=== PATIENT | male | born 1935 | race African-American/Black ===

== ENCOUNTER 2017-03-30 15:21 | Inpatient (IN) | payer MEDICARE, MEDICAID ==
[2017-03-30] MEDS ORDERED: Furosemide 40 MG/4 ML VIAL ONE (17:14)
[2017-03-30 17:25] LABS: #Basophils 0.1 thou/uL (0.0-0.2); #Eosinphils 0.2 thou/uL (0.0-0.7); #Lymphocytes 1.2 thou/uL (1.20-3.40); #Monocytes 0.5 thou/uL (0.11-0.59); #Neutrophils 5.3 thou/uL (1.40-6.50); %Basophils 0.8 % (0.0-1.0); %Eosinophils 2.5 % (0.0-10.0); %Lymphocytes 16.2 % (21.0-51.0); %Monocytes 6.5 % (0.0-10.0); Hematocrit 26.3 % (42.0-52.0); Mean Platelet Volume 6.5 fL (7.4-10.4); Red Blood Cell (RBC) Count 3.15 mill/uL (4.70-6.10); White Blood Cell (WBC) Count 7.2 thou/uL (4.8-10.8)
[2017-03-30 17:35] LABS: ALT (SGPT) 11 U/L (8-55); AST (SGOT) 20 U/L (5-34); Alkaline Phosphatase 110 U/L (40-150); Anion Gap 12 mmol/L (10-20); BUN (Urea Nitrogen) 5 mg/dL (8.4-25.7); Bilirubin, Total 0.3 mg/dL (0.2-1.2); CK (CPK) 137 U/L (30-200); Calc. Creatinine Clearance 0 mL/min (70-130); Calcium 8.8 mg/dL (7.8-10.44); Carbon Dioxide 25 mmol/L (23-31); Chloride 100 mmol/L (98-107); Estimated GFR-MDRD Greater than 90; Globulin 3.7 g/dL (2.4-3.5); Protein, Total 7.4 g/dL (5.8-8.1); Uric Acid 3.9 mg/dL (3.5-7.2)
[2017-03-30 17:39] LABS: Troponin I 0.083 ng/mL (< 0.028)
--- NOTE | 2017-03-30 17:50 | RAD ---
PORTABLE CHEST: 03/30/17 HISTORY: Dyspnea. Peripheral edema. COMPARISON: 06/14/14. Mild cardiomegaly. Mild vascular engorgement. There is patchy atelectasis and/or infiltrate in the left lung base obscuring the left hemidiaphragm. I cannot exclude small effusions. IMPRESSION: Cardiomegaly with mild vascular engorgement. Evidence of confluent infiltrate and/or atelectasis in t he left lung base. POS: DIRK
[2017-03-30] MEDS ORDERED: Ondansetron ODT 4 MG TAB SL PRN (21:38)
[2017-03-30] MEDS ORDERED: Ondansetron HCl/PF 4 MG/2 ML Vial IVP PRN ×2 (21:38→22:00)
[2017-03-30] MEDS ORDERED: Nitroglycerin 0.4 MG TAB (25 Tab Bottle) SL PRN (22:00)
[2017-03-30] MEDS ORDERED: Famotidine/PF 20 mg/2ml Vial SLOW IVP SCH ×2 (22:00→22:15)
[2017-03-30] MEDS ORDERED: Loratadine 10 MG TAB PO PRN (22:00)
[2017-03-30] MEDS ORDERED: Acetaminophen 325 MG TAB PO PRN (22:00)
[2017-03-30] MEDS ORDERED: Mag-Al 1200 mg/1200 mg/30 ML UDCUP PO PRN (22:00)
[2017-03-30] MEDS ORDERED: traMADol HCl 50 MG TAB PO PRN (22:00)
[2017-03-30] MEDS ORDERED: Calcium Carbonate 500 MG ChewTAB PO PRN (22:00)
[2017-03-30] MEDS ORDERED: Senokot 8.6 MG TAB PO PRN ×2 (22:00)
[2017-03-30] MEDS ORDERED: cloNIDine 0.1 MG TAB PO PRN (22:00)
[2017-03-30] MEDS ORDERED: Bisacodyl 5 MG TAB PO PRN ×2 (22:00)
[2017-03-30] MEDS ORDERED: hydrALAZINE 20 MG/ML VIAL SLOW IVP PRN (22:00)
[2017-03-30] MEDS ORDERED: Diabetic Tussin 200 MG/10 ML UDCUP PO PRN (22:00)
[2017-03-30] MEDS ORDERED: Benzonatate 100 MG CAP PO PRN (22:00)
--- NOTE | 2017-03-30 22:00 | ULT ---
LEFT LOWER EXTREMITY VENOUS DUPLEX STUDY. 03/30/17 Ultrasound doppler study is performed on the deep veins of the left lower extremity. Color doppler wi th spectral analysis and compression study is performed on the common femoral, profunda femoral, supe rficial femoral, popliteal, posterior tibial and greater saphenous veins. HISTORY: Left lower extremity pain and edema. FINDINGS: Deep veins of left lower extremity show normal compression and blood flow. No evidence of DVT. Prominent lymph nodes are seen in the inguinal region. IMPRESSION: No evidence of left lower extremity DVT. POS: KOMAL
[2017-03-30] MEDS ORDERED: Dextrose 50% Abboject 50 ML SYRINGE SLOW IVP PRN (22:41)
[2017-03-30] MEDS ORDERED: Dextrose 5% in Water 1,000 ML IV PRN (22:41)
[2017-03-30] MEDS ORDERED: HumaLOG 300 UNITS/3 ML VIAL SC PRN (22:41)
[2017-03-30] MEDS: Furosemide 40 MG/4 ML VIAL SLOW IVP SCH (23:22)
[2017-03-30 23:34] LABS: Iron 16 ug/dL (65-175)
[2017-03-30 23:38] LABS: Troponin I 0.086 ng/mL (< 0.028)
[2017-03-31 05:09] LABS: #Eosinphils 0.1 thou/uL (0.0-0.7); #Monocytes 0.6 thou/uL (0.11-0.59); #Neutrophils 4.3 thou/uL (1.40-6.50); %Basophils 0.7 % (0.0-1.0); %Lymphocytes 15.6 % (21.0-51.0); %Monocytes 10.3 % (0.0-10.0); Hematocrit 26.2 % (42.0-52.0); Mean Platelet Volume 6.4 fL (7.4-10.4); Red Blood Cell (RBC) Count 3.17 mill/uL (4.70-6.10); White Blood Cell (WBC) Count 6.1 thou/uL (4.8-10.8)
[2017-03-31 05:32] LABS: Anion Gap 13 mmol/L (10-20); BUN (Urea Nitrogen) 6 mg/dL (8.4-25.7); Calc. Creatinine Clearance 129 mL/min (70-130); Calcium 8.7 mg/dL (7.8-10.44); Carbon Dioxide 29 mmol/L (23-31); Chloride 99 mmol/L (98-107); Cholesterol 173 mg/dl (< 200 Desired); Estimated GFR-MDRD Greater than 90; LDL Cholesterol, Calculated 99 mg/dL
--- NOTE | 2017-03-31 05:33 | HP ---
DATE OF ADMISSION: 03/30/2017 PRIMARY CARE PHYSICIAN: None. CHIEF COMPLAINT: Left lower extremity swelling and shortness of breath on lying down. HISTORY OF PRESENT ILLNESS: Mr. Bowman is an 81-year-old -Italian male with past medical histo ry of atrial fibrillation, CVA with left-sided hemiparesis, diabetes, hypertension, and dyslipidemia, who was sent from the shelter where he resides with the above-mentioned complaint. History is mainly obtained by the patient himself and electronic medical records have been reviewed. Case has b een discussed with the admitting ER physician, Dr. Dykes. According to Mr. Bowman: He resides in [facility]. The patient reports that for the la st 5 or 6 days, shelter staff and himself have noticed that his left lower leg is swollen. He d enies any pain per se, but it hurts if you touch it. He has also noticed shortness of breath which m ainly happens when he tries to lie flat. He has been unable to sleep for the last 5 or 6 days and cole s been sitting up in a recliner because every time he tries to lay flat, he gets short of breath and starts to choke. Because of these ongoing symptoms, he was sent to the emergency room. He has mild cough and rhinorrhea, but no other recent illnesses. He denies any fever, chills, chest pain or disc omfort. Upon presentation to the emergency room, his oxygen saturation was 92% on room air. He was afebrile and otherwise hemodynamically stable. His examination confirmed the findings of left lower extremity swelling with pitting edema and decreased breath sounds in the lungs. He underwent a 12-lead EKG wh ich showed atrial fibrillation with controlled ventricular response and a chest x-ray which showed fi ndings suggestive of either atelectasis versus left lower lobe infiltrate. He underwent a lower extr emity Doppler ultrasound of the left leg which is negative for any DVT. His initial workup suggested possible fluid overload/congestive heart failure with elevated BNP at 159. He had indeterminate ran ge troponin as well with initial troponin of 0.083. He received 40 mg of IV Lasix in the emergency r oom and is now being admitted for fluid overload and congestive heart failure. PAST MEDICAL HISTORY: 1. Chronic atrial fibrillation. 2. Diabetes mellitus. 3. Dyslipidemia. 4. Hypertension. 5. 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 6. Gastroesophageal reflux disease. PAST SURGICAL HISTORY: Cholecystectomy, laminectomy. FAMILY HISTORY: Significant for diabetes, hypertension, and heart disease. SOCIAL HISTORY: He lives at [facility] since his stroke. He has no history of drug, tobacco or alcohol abuse. He is mostly in a wheelchair. ALLERGIES: No known medication allergies. CURRENT MEDICATIONS: As listed in the emergency room record include omeprazole 40 mg daily, lisinopr il 20 mg daily, Norvasc 10 mg daily, Actos 15 mg daily, Cordarone 100 mg daily, Lasix 40 mg daily, Al dactone 25 mg daily, aspirin 81 mg daily, ferrous gluconate 325 mg daily, metformin 1000 mg b.i.d., v itamin C 500 mg b.i.d., Tegretol 200 mg 3 times a day, Xarelto 20 mg daily, and Cardizem 120 mg daily . REVIEW OF SYSTEMS: The following complete review of systems was negative, unless otherwise mentioned in the HPI or below: Constitutional: Weight loss or gain, ability to conduct usual activities. Skin: Rash, itching. Ey es: Double vision, pain. ENT/Mouth: Nose bleeding, neck stiffness, pain, tenderness. Cardiovascul ar: Palpitations, orthopnea. Respiratory: Shortness of breath, wheezing, cough, hemoptysis, fever or night sweats. Gastrointestinal: Poor appetite, abdominal pain, heartburn, nausea, vomiting, cons tipation, or diarrhea. Genitourinary: Urgency, frequency, dysuria, nocturia. Musculoskeletal: Eliceo n, swelling. Neurologic/Psychiatric: Anxiety, depression. Allergy/Immunologic: Skin rash, bleedin g tendency. The patient endorses orthopnea, PND, dyspnea on exertion and lower extremity edema. LABORATORY DATA: His CBC shows WBCs at 7.2, 74% neutrophils. Hemoglobin is 7.6 and platelet count o f 482. Serum chemistries show sodium of 133, otherwise unremarkable. His BNP is 159. His creatinin e kinase is normal. His CK-MB is normal at 5.6 with troponin elevated to 0.083. Twelve-lead EKG by my review shows atrial fibrillation with controlled ventricular response without any acute ST or T-wa ve changes. Chest x-ray by my review shows mild vascular congestion and possibility of left lung bas e infiltrate. Doppler extremity of the lower leg on the left side does not show any DVT. PHYSICAL EXAMINATION: VITAL SIGNS: Upon presentation include blood pressure 150/76, pulse of 72, saturating 92% on room ai r, respirations 14, temperature 97.7. GENERAL: No acute distress, lying comfortably in bed now, no respiratory distress noticed. HEENT: Mucous membrane is moist and pink, no oropharyngeal exudate or erythema. Head is normocephal ic, atraumatic. Pupils equal, reactive to light and accommodation. Extraocular movements intact. NECK: Supple without any lymphadenopathy, JVD or bruit. CHEST: Clear to auscultation, but appears decreased at bases, few bibasilar crackles heard. No whee zing. HEART: Rate and rhythm is regular without any murmur, rubs or gallops. ABDOMEN: Obese, soft, nontender, nondistended with positive bowel sounds. EXTREMITIES: Showed left lower extremity pitting edema extending all the way from his foot up to his mid dawkins. He does not have any warmth or tenderness on palpation of the left leg. No erythema noti lana. NEUROLOGIC: Dense left-sided hemiparesis involving the left arm and left leg noticed. Otherwise, ne urological examination is unremarkable. SKIN: Free of any rashes. Appears dry. PSYCHIATRIC: Normal affect. IMPRESSION AND PLAN: 1. Acute respiratory distress. This is secondary to acute congestive heart failure exacerbation. T he patient's last echocardiogram was in 2012 in December. It did show preserved ejection fraction of 5 9%. At this time, we will go ahead and repeat the echocardiogram and continue gentle diuresis with L asix. Strict I's and O's and free water restriction will also be instituted. We will also request c onsultation with Cardiology. The patient reports that he has been seen by Dr. Moncada in the past, but he has not seen any leasing representative since he has been in the shelter. The patient possibly ca n also have aspiration pneumonia given his history of dense CVA. He denies any dysphagia or swallowi ng problems, but we will go ahead and consult speech therapist as well for formal evaluation. He toyin l be started on antibiotic for possible left lower lobe infiltrate. 2. Acute congestive heart failure exacerbation, likely diastolic. We will repeat the echo and flower nue diuresis as above. Monitor renal function and strict I's and O's. 3. Indeterminate troponin. This is likely secondary to demand ischemia from acute congestive heart failure. We will continue to trend serial cardiac enzymes and continue his home medications includin g aspirin. 4. Chronic atrial fibrillation. The patient is currently rate controlled. We will continue his Xar elto as well as his antiarrhythmics and neural blocking agents once his home medications are confirme d. 5. History of hypertension. He is currently controlled. We will continue with his lisinopril, Norv asc once the dosages are confirmed. Restart Cardizem once the dose is confirmed as well. 6. History of diabetes mellitus type 2. At this time, we will start him on insulin sliding scale fo r better control. Restart his home medications if his oral intake is adequate. Frequent Accu-Cheks will also be ordered. 7. History of gastroesophageal reflux. We will start him on b.i.d. Pepcid for now and continue his home medication of omeprazole. 8. Code status: FULL CODE, discussed with the patient. 9. History of CVA. We will obtain OT and PT consultation. He will be a good candidate for rehabili tation back at shelter. 10. Morbid obesity. 11. History of recurrent urinary tract infection. We will check urinalysis and culture if necessary . DISPOSITION: Mr. Bowman is currently being admitted for acute respiratory distress, likely secondary t o acute congestive heart failure exacerbation. Estimated length of stay is at least 2-3 midnight. F urther management will depend upon his clinical course.
[2017-03-31] MEDS: Furosemide 40 MG/4 ML VIAL SLOW IVP SCH (05:36)
[2017-03-31] MEDS: Rivaroxaban 10 MG TAB PO SCH (05:37)
[2017-03-31] MEDS: Amlodipine 10 MG TAB PO SCH (09:18)
[2017-03-31] MEDS: Spironolactone 25 MG TAB PO SCH (09:19)
[2017-03-31] MEDS: Aspirin 81 mg Enteric Coated Tablet PO SCH (09:19)
[2017-03-31] MEDS: Amiodarone 200 MG TAB PO SCH (09:19)
[2017-03-31] MEDS: Famotidine/PF 20 mg/2ml Vial SLOW IVP SCH ×2 (09:20→20:41)
[2017-03-31] MEDS: carBAMazepine 200 MG TAB PO SCH ×3 (09:26→18:05)
--- NOTE | 2017-03-31 10:29 | PDOC.PN ---
- Subjective Encounter Start Date: 03/31/17 Encounter Start Time: 10:27 Mr. Bowman was seen today in follow-up of CHF exacerbation. He says he is breathing better today. He had been sleeping for the past 4 nights in his wheelchair due to trouble breathing, He denies having any chest pain. - Objective MAR Reviewed: Yes Vital Signs & Weight: Vital Signs (12 hours) Temp Pulse Resp BP Pulse Ox 03/31/17 09:19 81 03/31/17 09:18 81 03/31/17 08:20 99.1 F 81 18 134/68 94 L 03/31/17 04:00 98.2 F 90 16 123/58 L 95 Weight Weight 250 lb I&O: 03/30/17 03/31/17 04/01/17 06:59 06:59 06:59 Intake Total 60 Balance 60 Result Diagrams: 03/31/17 04:39 03/31/17 04:39 Additional Labs: Accuchecks 03/31/17 06:18 POC Glucose 134 H Phys Exam - Physical Examination HEENT: PERRLA Respiratory: no wheezing, no rales, no rhonchi, clear to auscultation bilateral Cardiovascular: RRR, no significant murmur Gastrointestinal: soft, non-tender, positive bowel sounds Musculoskeletal: edema present Trace edema both legs, and chronic venous stasis changes Dx/Plan (1) Acute exacerbation of CHF (congestive heart failure) Code(s): I50.9 - HEART FAILURE, UNSPECIFIED Status: Acute (2) Hypertension Code(s): I10 - ESSENTIAL (PRIMARY) HYPERTENSION Status: Acute (3) Afib Code(s): I48.91 - UNSPECIFIED ATRIAL FIBRILLATION Status: Acute (4) Diabetes mellitus type 2 Code(s): E11.9 - TYPE 2 DIABETES MELLITUS WITHOUT COMPLICATIONS Status: Active - Plan * Dyspnea- patient was admitted with symptoms consistent with CHF exacerbation- he has improved symptomatically with Diureses * Echo is pending * HTN- blood pressure is stable * Will need to repeat BMP to monitor renal function and electrolytes * DM- blood glucose is stable * Await Cardiology input.
--- NOTE | 2017-03-31 16:05 | CON ---
DATE OF CONSULTATION: 03/31/2017 REASON FOR CONSULTATION: Lower extremity edema and shortness of breath. HISTORY OF PRESENT ILLNESS: Mr. Bowman is a pleasant 81-year-old gentleman who recently presented with an increased shortness of breath and lower extremity edema. During my visit, his symptoms have impr niki. He did complain of some shortness of breath. No chest pain or pressure noted. He was found t o be in atrial fibrillation, which has been documented in the past to be chronic. He has been on Xar elto 20 mg daily for his atrial fibrillation. According to Mr. Bowman, he has not been seen or evaluat ed by Cardiology in the past. PAST MEDICAL HISTORY: Chronic atrial fibrillation, hyperlipidemia, hypertension, diabetes mellitus, CVA and acid reflux. PAST SURGICAL HISTORY: Cholecystectomy and laminectomy. SOCIAL HISTORY: No current tobacco or alcohol use. ALLERGIES: None. MEDICATIONS: Include Norvasc, Actos, Cordarone, Lasix, metformin, vitamin C, Tegretol, Xarelto and C ardizem. REVIEW OF SYSTEMS: Ten-point review of systems reviewed and as above, otherwise negative. PHYSICAL EXAMINATION: GENERAL: Patient is a pleasant male who is in no acute distress. The patient appears his stated age . VITAL SIGNS: Blood pressure 145/67, pulse 81 and temperature afebrile. NEUROLOGIC: The patient is alert and oriented x3 with no focal neurologic deficits. HEENT: Sclerae without icterus. Mouth has moist mucous membranes with normal pallor. NECK: No JVD. Carotid upstroke brisk. No bruits bilaterally. LUNGS: Clear to auscultation with unlabored respirations. BACK: No scoliosis or kyphosis. CARDIAC: Irregularly irregular. No significant rubs, murmurs, thrills, or gallops noted throughout the precordium. PMI is not displa lana. There is no parasternal heave. ABDOMEN: Soft, nontender, nondistended. No peritoneal signs present. No hepatosplenomegaly. No abnormal striae. EXTREMITIES: 2+ femoral and 2+ dorsalis pedis pulses. No cyanosis, clubbing, or edema. SKIN: No gross abnormalities. PERTINENT LABS: Hemoglobin 7.5. Creatinine 0.73. IMPRESSION: 1. Shortness of breath. 2. Lower extremity edema. 3. Atrial fibrillation. RECOMMENDATIONS: Mr. Bowman' symptoms may be multifactorial. He does have a history of atrial fibrill ation. He has been on amiodarone therapy and Xarelto, although he states he has not been seen or juvencio luated by Cardiology in the past. Given that he continues to be in atrial fibrillation, would stop a miodarone therapy. His symptoms may also be exacerbated by anemia with a hemoglobin of 7.5. Recomme ndations will be per the primary team. Otherwise, he states he has had significant diuresis and sign ificant improvement in symptoms.
[2017-04-01] MEDS: Rivaroxaban 10 MG TAB PO SCH (05:17)
[2017-04-01 05:30] LABS: Hematocrit 26.1 % (42.0-52.0)
[2017-04-01 05:50] LABS: Anion Gap 11 mmol/L (10-20); BUN (Urea Nitrogen) 6 mg/dL (8.4-25.7); Calc. Creatinine Clearance 128 mL/min (70-130); Calcium 8.9 mg/dL (7.8-10.44); Carbon Dioxide 32 mmol/L (23-31); Chloride 99 mmol/L (98-107); Estimated GFR-MDRD Greater than 90
[2017-04-01 06:26] VITALS: BMI 37.3
[2017-04-01] MEDS: Famotidine/PF 20 mg/2ml Vial SLOW IVP SCH ×2 (08:40→22:03)
[2017-04-01] MEDS: Spironolactone 25 MG TAB PO SCH (08:40)
[2017-04-01] MEDS: Aspirin 81 mg Enteric Coated Tablet PO SCH (08:40)
[2017-04-01] MEDS: Amiodarone 200 MG TAB PO SCH (08:40)
[2017-04-01] MEDS: Amlodipine 10 MG TAB PO SCH (08:41)
[2017-04-01] MEDS: carBAMazepine 200 MG TAB PO SCH ×3 (08:41→17:13)
--- NOTE | 2017-04-01 09:47 | PDOC.PN ---
- Subjective Encounter Start Date: 04/01/17 Encounter Start Time: 09:45 Mr. Bowman was seen today in follow-up for new onset CHF. He says he is feeling much better today. He does not have any complaints. He denies feeling short of breath, and says the pain in his left leg is much better. - Objective MAR Reviewed: Yes Vital Signs & Weight: Vital Signs (12 hours) Temp Pulse Resp BP BP Pulse Ox 04/01/17 08:41 76 04/01/17 08:40 76 124/60 04/01/17 08:35 98 F 76 18 94 L 04/01/17 08:34 98.0 F 76 18 124/60 94 L 04/01/17 04:00 98.7 F 76 20 131/60 92 L Weight Weight 238 lb I&O: 03/31/17 04/01/17 04/02/17 06:59 06:59 06:59 Intake Total 60 120 Balance 60 120 Result Diagrams: 04/01/17 04:45 04/01/17 04:45 Additional Labs: Accuchecks 04/01/17 03/31/17 03/31/17 06:03 20:07 17:02 POC Glucose 149 H 193 H 166 H 03/31/17 12:33 POC Glucose 163 H Phys Exam - Physical Examination HEENT: PERRLA Respiratory: no wheezing, no rales, no rhonchi, clear to auscultation bilateral Cardiovascular: RRR, no significant murmur Gastrointestinal: soft, non-tender, positive bowel sounds Musculoskeletal: edema present trace pedal edema Dx/Plan (1) Acute exacerbation of CHF (congestive heart failure) Code(s): I50.9 - HEART FAILURE, UNSPECIFIED Status: Acute (2) Hypertension Code(s): I10 - ESSENTIAL (PRIMARY) HYPERTENSION Status: Acute (3) Afib Code(s): I48.91 - UNSPECIFIED ATRIAL FIBRILLATION Status: Acute (4) Diabetes mellitus type 2 Code(s): E11.9 - TYPE 2 DIABETES MELLITUS WITHOUT COMPLICATIONS Status: Active - Plan * New Onset CHF- this is likely due to Diastolic Dysfunction ( however this could not be assessed alan to AFIB during the Echo) * Continue Lasix * Anemia- this appears to be chronic in review of his records, but his level has been slowly trending down. Will check a ferritin level, and stool for Occult blood. I suspect he has a combination of iron deficiency as well as anemia in chronic disease. He does not seem symptomatic from this, and therefore can be discharged on iron. He will need referral to GI for consideration of outpatient Colonoscopy. * AFIB- chronic- Amiodarone was discontinued by Dr. Moncada * DM- blood glucose is stable * He likely can be transitioned back to the [place] soon. .
[2017-04-01] MEDS: HumaLOG 300 UNITS/3 ML VIAL SC PRN (12:56)
--- NOTE | 2017-04-01 13:54 | PRG ---
DATE OF SERVICE: 04/01/2017 SUBJECTIVE: Mr. Bowman is doing well. He has had increased shortness of breath and decreased lower ex tremity edema. OBJECTIVE: VITAL SIGNS: Blood pressure 124/60, pulse 76, I's and O's positive 60, but has lost 12 pounds in the last 24 hours. PHYSICAL EXAMINATION: GENERAL: Patient is a pleasant male who is in no acute distress. The patient appears his stated age . NEUROLOGIC: The patient is alert and oriented times 3 with no focal neurologic deficits. HEENT: Sclerae without icterus. Mouth has moist mucous membranes with normal pallor. NECK: No JVD. Carotid upstroke brisk. No bruits bilaterally. LUNGS: Clear to auscultation with unlabored respirations. BACK: No scoliosis or kyphosis. CARDIAC: Regular rate and rhythm with normal S1 and S2. No S3 or S4 noted. No significant rubs, mu rmurs, thrills, or gallops noted throughout the precordium. PMI is not displaced. There is no serg ternal heave. ABDOMEN: Soft, nontender, nondistended. No peritoneal signs present. No hepatosplenomegaly. No ab normal striae. EXTREMITIES: 1+ pitting edema. SKIN: No gross abnormalities. IMPRESSION: 1. Shortness of breath. 2. Lower extremity edema. 3. Atrial fibrillation, rate controlled. 4. Anemia. RECOMMENDATIONS: At this point, we will stop amiodarone therapy. He is currently in atrial fibrilla tion and no need to proceed. He is currently rate controlled. We will continue to aspirin. He is o n calcium channel blockade at 120 mg per day. We will continue. Continue Xarelto.
[2017-04-02] MEDS: Rivaroxaban 10 MG TAB PO SCH (06:17)
[2017-04-02] MEDS: Amlodipine 10 MG TAB PO SCH (08:08)
[2017-04-02] MEDS: Aspirin 81 mg Enteric Coated Tablet PO SCH (08:08)
[2017-04-02] MEDS: Spironolactone 25 MG TAB PO SCH (08:08)
[2017-04-02] MEDS: carBAMazepine 200 MG TAB PO SCH ×2 (08:08→11:48)
[2017-04-02] MEDS: Famotidine/PF 20 mg/2ml Vial SLOW IVP SCH (08:08)
[2017-04-02 10:51] LABS: Magnesium 1.6 mg/dL (1.6-2.6)
[2017-04-02 12:14] VITALS: TEMP 97.7
[2017-04-02 12:28] VITALS: BP 144/65
[2017-04-02] MEDS: HumaLOG 300 UNITS/3 ML VIAL SC PRN (12:31)
--- NOTE | 2017-04-02 12:38 | DIS ---
PRIMARY CARE PHYSICIAN: Dr. Angel Suarez DATE OF ADMISSION: 03/30/2017 DATE OF DISCHARGE: 04/02/2017 DISCHARGE DISPOSITION: Back to [facility]. DISCHARGE DIAGNOSES: 1. Acute congestive heart failure exacerbation, likely diastolic heart failure or congestive heart f ailure with preserved ejection fraction. 2. Chronic atrial fibrillation. 3. Diabetes mellitus. 4. Iron deficiency anemia. 5. Dyslipidemia. 6. Hypertension. 7. History of right-sided cerebrovascular accident. DISCHARGE MEDICATIONS: Please note that Mr. Bowman was taken off of amiodarone by Dr. Moncada here [facility]. He is to continue Xarelto 20 mg daily, spironolactone 25 mg daily, Actos 15 mg daily , Protonix 40 mg daily, metformin 1000 mg twice a day, loratadine 10 mg as needed, lisinopril 10 mg a t bedtime, Levaquin 500 mg until course is completed, Mucinex 600 mg twice a day, Lasix 40 mg daily, iron sulfate 325 mg twice a day, Cardizem-CD 120 mg daily, Diabetic Tussin DM as needed, Tegretol 200 mg t.i.d., Dulcolax 5 mg as needed, aspirin 81 mg daily, amlodipine 10 mg daily, extra strength aspi rin 500 mg q.4 as needed. PROCEDURES DONE DURING ADMISSION: The patient had a lower extremity venous Doppler of the left lower extremity which was negative for DVT. The patient also had an echocardiogram and the LVEF was estim ated at 55-60%. Diastolic function could not be assessed secondary to the patient was in atrial fibr illation. CODE STATUS: Full code. ALLERGIES: No known drug allergies. HOSPITAL COURSE: Mr. Bowman is a pleasant 81-year-old gentleman who was admitted after experiencing in creasing lower extremity edema and shortness of breath in the long-term. He was subsequently warren sferred to our facility for evaluation. He underwent echocardiogram to assess his ejection fraction and he does have a preserved EF. It is suspected that the heart failure could be due to diastolic dy sfunction. He was evaluated by Cardiology. He has a history of chronic atrial fibrillation which th e patient continues to be in atrial fibrillation despite being on amiodarone. For this reason, the a miodarone was discontinued by Cardiology as it has been ineffective. The patient improved dramatical ly overnight and as such, no significant changes will be made to his medications other than the disco ntinuation of the amiodarone and to watch his oral intake of fluids as well as sodium. He was also f ound to be anemic with a hemoglobin ranging from 7.9 to 7.5. He had a low iron level as well as a lo w ferritin level. However, his stool guaiac was negative. It appears he has an iron deficiency anem ia. This is in fact stable over the course of the last few years. His hemoglobin; however, has tren ded down. He will need an outpatient GI evaluation to rule out occult malignancy if this has not yet already been done and the orders of which were given to the long-term. The patient therefore is stable for discharge and follow up with his primary care physician in a few weeks.
[2017-04-02] MEDS ORDERED: Ferrous Sulfate 325 MG TAB PO SCH (17:00)
--- NOTE | 2017-05-01 16:47 | EKG ---
Test Reason : Blood Pressure : / mmHG Vent. Rate : 070 BPM Atrial Rate : 288 BPM P-R Int : 000 ms QRS Dur : 072 ms QT Int : 418 ms P-R-T Axes : 000 018 005 degrees QTc Int : 451 ms Atrial fibrillation Nonspecific ST and T wave abnormality Abnormal ECG Confirmed by ELLA JONES, GARIMA ([id number]), digital editor AMINA NEVAREZ ([id number]) on 05/01/2017 4:46:54 PM Referred By: Confirmed By:GARIMA JARAMILLO MD
== END 2017-04-02 14:32 | DRG 292 ==
LOC: ERS 15:21 → 2NO 19:30
PROVIDERS: ADMIT Internal Medicine; ATTEND Internal Medicine
DX: I11.0 Hypertensive heart disease with heart failure (principal); I69.354 Hemiplegia and hemiparesis following cerebral infarction affecting left non-dominant side; I24.8 Other forms of acute ischemic heart disease; R06.03 Acute respiratory distress; E66.01 Morbid (severe) obesity due to excess calories; E11.9 Type 2 diabetes mellitus without complications; D50.9 Iron deficiency anemia, unspecified; I50.33 Acute on chronic diastolic (congestive) heart failure; I48.2 Chronic atrial fibrillation; E78.5 Hyperlipidemia, unspecified; Z79.02 Long term (current) use of antithrombotics/antiplatelets; K21.9 Gastro-esophageal reflux disease without esophagitis; Z68.39 Body mass index [BMI] 39.0-39.9, adult; I87.8 Other specified disorders of veins
CPT/HCPCS: 36415; 36416; 71010; 80048; 80053; 80061; 82274; 82550; 82553; 82728; 83540; 83550; 83735; 83880; 84132; 84484; 84550; 85014; 85018; 85025; 85049; 93005; 93306; 96374; G8978-GP-CM; G8979-GP-CK; G8987-GO-CM; G8988-GO-CK; G8996-GN-CI; G8997-GN-CI; J1940; S0028

== ENCOUNTER 2017-04-26 19:20 | Inpatient (IN) | payer MEDICARE, MEDICAID ==
[2017-04-26] MEDS ORDERED: Acetaminophen 500 MG TAB ONE (20:59)
[2017-04-26 21:30] LABS: #Lymphocytes 0.5 thou/uL (1.20-3.40); #Monocytes 0.6 thou/uL (0.11-0.59); #Neutrophils 5.5 thou/uL (1.40-6.50); %Basophils 0.3 % (0.0-1.0); %Eosinophils 0.5 % (0.0-10.0); %Lymphocytes 7.3 % (21.0-51.0); %Monocytes 8.5 % (0.0-10.0); Hematocrit 21.3 % (42.0-52.0); Mean Platelet Volume 7.1 fL (7.4-10.4); Red Blood Cell (RBC) Count 2.73 mill/uL (4.70-6.10); White Blood Cell (WBC) Count 6.6 thou/uL (4.8-10.8)
--- NOTE | 2017-04-26 21:30 | ULT ---
LEFT LOWER EXTREMITY VENOUS DOPPLER: Date: 04-26-17 Provided Clinical History: Left lower extremity pain. FINDINGS: Grayscale and color doppler sonography with spectral analysis was performed of the left common femora l, femoral, popliteal, posterior tibial, greater saphenous and profunda femoral veins demonstrating a normal sonographic appearance to each. IMPRESSION: No sonographic evidence for left lower extremity deep venous thrombosis. POS: DIRK
[2017-04-26 21:45] LABS: ALT (SGPT) 11 U/L (8-55); AST (SGOT) 24 U/L (5-34); Alkaline Phosphatase 82 U/L (40-150); Anion Gap 15 mmol/L (10-20); BUN (Urea Nitrogen) 14 mg/dL (8.4-25.7); Bilirubin, Total 0.3 mg/dL (0.2-1.2); Calc. Creatinine Clearance 0 mL/min (70-130); Calcium 8.4 mg/dL (7.8-10.44); Carbon Dioxide 27 mmol/L (23-31); Chloride 100 mmol/L (98-107); Estimated GFR-MDRD Greater than 90; Globulin 3.6 g/dL (2.4-3.5)
[2017-04-26 22:03] LABS: Bilirubin Negative (Negative); Blood, Urine Trace (Negative); Glucose, Urine (Dipstick) Negative (Negative); Ketone, Urine Negative (Negative); Nitrite Negative (Negative); Protein, Urine (Dipstick) Negative (Neg-Trace); Urobilinogen 0.2 mg/dL (0.2-1.0)
[2017-04-26 22:06] LABS: Bacteria/HPF None Seen HPF (None Seen); Hyaline Casts/LPF 0-3 HYALINE CAST LPF (0-3 Hyaline); Squamous Epithelial 0-3 HPF (0-3); WBC/HPF 0-3 HPF (0-3)
[2017-04-26 22:51] LABS: Prothrombin Time 17.8 SEC (12.0-14.7)
[2017-04-26 22:52] LABS: PTT 41.7 SEC (22.9-36.1)
[2017-04-27 01:09] LABS: Troponin I 0.095 ng/mL (< 0.028)
[2017-04-27 03:54] LABS: Troponin I 0.094 ng/mL (< 0.028)
[2017-04-27 06:37] LABS: Troponin I 0.108 ng/mL (< 0.028)
[2017-04-27 07:53] LABS: Hematocrit 25.9 % (42.0-52.0)
[2017-04-27 09:44] LABS: Hematocrit 24.7 % (42.0-52.0)
--- NOTE | 2017-04-27 20:14 | HP ---
DATE OF ADMISSION: 04/26/2017, the patient was placed in observation at midnight, the time of my visit was 0700. CHIEF COMPLAINT: Left calf pain. HISTORY OF PRESENT ILLNESS: Mr. Bowman is an 81-year-old gentleman, resident of [facility] where he has been since he suffered a stroke leaving him with left-sided hemiplegia. He lives there a retirement, does have contractures left over from stroke, has chronic left-sided lower extremity edema and history of paroxysmal atrial fibrillation on anticoagulation. He developed acute on chronic left calf pain on the day of presentation, has been going on for about 4 weeks, but got worse at the day of presentation and was sent to the snf for evaluation. On arrival to the ER, ultrasound was done that was negative for DVT, but hemoglobin was noted to be 6.3 and steadily decreasing. Thus he was admitted to our service for blood transfusion. He was accepted by the Hospitalist for admission overnight, he was given a 1 unit blood transfusion, and repeat H&H it was ordered for the morning. Upon arrival this morning, the patient was feeling better. The pain was well controlled. He had no fevers or chills. No chest pain or shortness of breath. PAST MEDICAL HISTORY: 1. Diabetes mellitus type 2. 2. Hypertension. 3. Paroxysmal atrial fibrillation, currently in atrial fibrillation. 4. 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 5. Depression. PAST SURGICAL HISTORY: 1. Back surgery. 2. Right thoracentesis in the past. 3. Cholecystectomy in 2010. HOME MEDICATIONS: 1. Metformin 1000 mg p.o. b.i.d. 2. Guaifenesin 600 mg p.o. b.i.d. 3. Tegretol 200 mg p.o. t.i.d. 4. Aldactone 25 mg daily. 5. Xarelto 20 mg daily. 6. Actos 15 mg daily. 7. Protonix 40 mg daily. 8. Claritin 10 mg daily. 9. Lisinopril 10 mg p.o. at bedtime. 10. Lasix 40 mg daily. 11. Iron sulfate 325 mg p.o. b.i.d. 12. Diltiazem CD 120 mg p.o. daily. 13. Aspirin 81 mg daily. 14. Amlodipine 10 mg daily. ALLERGIES: NKDA. FAMILY HISTORY: Negative for immune dysfunction, blood tumors; no known strokes. SOCIAL HISTORY: Negative for habits x3. He lives in the snf currently. REVIEW OF SYSTEMS: A 10-point review of systems was performed and it is negative for all other systems except that as per HPI. PHYSICAL EXAMINATION: VITAL SIGNS: Temperature on arrival 99.4, pulse 97, blood pressure 147/73, respiratory 20, satting 93% on room air. GENERAL: He is awake. He is alert. He is oriented x3, well-developed, well- nourished -[place] male appears to be in no distress. HEENT: Normocephalic, atraumatic. Pupils equal and reactive to light bilaterally, mucous membranes are moist. He has no visible lesions. No thrush. NECK: Supple with no lymphadenopathy, JVD or thyromegaly. He has normal carotid upstrokes. There are no audible bruits. LUNGS: Clear. There are no wheezes, no rales or rhonchi with good air movement. Symmetric chest excursion. CARDIOVASCULAR: Normal S1. Decreased S2. He has irregularly irregular and slightly tachycardic in the low 100s. ABDOMEN: Soft, it is obese, it is nontender, nondistended, no mass or organomegaly. EXTREMITIES: No cyanosis or clubbing. He has left lower extremity edema approximately 1+ in the thigh level. It is slightly pitting. MUSCULOSKELETAL: Normal to inspection. His right arm is contracted in a decorticate position. His left lower extremity is not contracted, but has no sensation, also has no motor tone. NEUROLOGIC: Shows cranial nerves to be grossly intact and no focal deficits otherwise. SKIN: Otherwise, warm, moist and well perfused. LABORATORY DATA: CMP is normal. Creatinine 0.83, sodium 137, potassium 4.5, glucose 137 and calcium 8.4. CBC showed a white count of 6.3, hemoglobin 6.3, hematocrit 21.3 and platelet count of 409,000. Ultrasound of lower extremities, negative for DVT. ASSESSMENT AND PLAN: 1. Chronic anemia, iron deficiency. The patient is on iron replacement already. He got a unit of blood. I will recheck an H&H now and reevaluate. 2. Left lower extremity pain. Negative for deep venous thrombosis. 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 He does have edema, but there are no palpable cords and negative ultrasound. He is on Xarelto 20 mg daily, which he will continue. 3. Diabetes mellitus type 2. On oral medications with good control. 4. Hypertension. Continue regular medications. 5. History of paroxysmal atrial fibrillation, currently in atrial fibrillation on Xarelto for prophylaxis. 6. Cerebral vascular disease, status post cerebrovascular accident with left hemiplegia. 7. Depression. We will continue current management and follow up on the results. If his H&H is improved, then we will likely let him go home. BRIONNA
--- NOTE | 2017-05-22 20:53 | EKG ---
Test Reason : Blood Pressure : / mmHG Vent. Rate : 096 BPM Atrial Rate : 110 BPM P-R Int : 000 ms QRS Dur : 078 ms QT Int : 278 ms P-R-T Axes : 000 033 193 degrees QTc Int : 351 ms Atrial fibrillation Nonspecific T wave abnormality , probably digitalis effect Abnormal ECG Confirmed by YOBANI JONES, ALVARADO ([id number]), rewrite editor AMINA NEVAREZ ([id number]) on 05/22/2017 8:52:30 PM Referred By: Confirmed By:ALVARADO HILTON MD
== END 2017-04-27 12:06 | DRG 812 ==
LOC: ERS 19:20 → ERHOLD 23:30
PROVIDERS: ADMIT Internal Medicine Addiction Medicine; ATTEND Internal Medicine Addiction Medicine
PROC: 30233N1 Transfusion of Nonautologous Red Blood Cells into Peripheral Vein, Percutaneous Approach (ICD-10-PCS; principal; 2017-04-26)
DX: D50.9 Iron deficiency anemia, unspecified (principal); I69.354 Hemiplegia and hemiparesis following cerebral infarction affecting left non-dominant side; I48.0 Paroxysmal atrial fibrillation; M79.1 Myalgia; E11.9 Type 2 diabetes mellitus without complications; I10 Essential (primary) hypertension; F32.9 Major depressive disorder, single episode, unspecified; Z79.01 Long term (current) use of anticoagulants; Z79.84 Long term (current) use of oral hypoglycemic drugs; Z79.82 Long term (current) use of aspirin; K21.9 Gastro-esophageal reflux disease without esophagitis; E78.5 Hyperlipidemia, unspecified
CPT/HCPCS: 36415; 36416; 36430; 51701; 80053; 81003; 81015; 82274; 84484; 85014; 85018; 85025; 85610; 85730; 86850; 86900; 86901; 93005; P9016

== ENCOUNTER 2017-07-29 15:25 | Inpatient (IN) | payer MEDICARE, MEDICAID ==
[2017-07-29 16:16] LABS: Hemoglobin 5.2 g/dL (14.0-18.0); Mean Corpuscular HGB CONC 27.3 g/dL (32.0-36.0); Mean Corpuscular Hemoglobin 20.4 pg (27.0-31.0); Mean Corpuscular Volume 74.7 fl (80.0-94.0); Platelet Count 507 thou/uL (130-400); RBC Distribution Width 18.7 % (11.5-14.5); Red Blood Cell (RBC) Count 2.53 mill/uL (4.70-6.10)
[2017-07-29 16:34] LABS: Anisocytosis MODERATE=16-30 cells (100X) (0-5/hpf); Elliptocytes SLIGHT = 2-5 cells (100X) (0-1/hpf); Eosinophils 1 % (0-10); Hypochromia SLIGHT = 6-15 cells (100X) (0-5/hpf); Lymphocytes 9 % (21-51); MDiff Complete? YES; Microcytosis SLIGHT = 6-15 cells (100X) (0-5/hpf); Monocytes 6 % (0-10); Neutrophil 82 % (42-75); Nucleated RBC 1 % (0); Ovalocytes SLIGHT = 2-5 cells (100X) (0-1/hpf); PLT Morphology Comment Appears Adequate; Poikilocytosis SLIGHT = 6-15 cells (100X) (0-5/hpf); Polychromasia MODERATE = 3-4 cells (100X) (0-2/hpf); Schistocytes SLIGHT = 2-5 cells (100X) (0-1/hpf); Target Cells MODERATE= 6-15 cells (100X) (0-1/hpf); Tear Drops SLIGHT = 2-5 cells (100X) (0-1/hpf); White Blood Cell (WBC) Count 7.1 thou/uL (4.8-10.8)
[2017-07-29 16:36] LABS: INR-International Normal Ratio 1.6; Prothrombin Time 19.6 SEC (12.0-14.7)
[2017-07-29 16:38] LABS: ALT (SGPT) 8 U/L (8-55); AST (SGOT) 19 U/L (5-34); Albumin 3.6 g/dL (3.4-4.8); Alkaline Phosphatase 129 U/L (40-150); Anion Gap 15 mmol/L (10-20); BUN (Urea Nitrogen) 17 mg/dL (8.4-25.7); Bilirubin, Total 0.2 mg/dL (0.2-1.2); CK (CPK) 86 U/L (30-200); Calc. Creatinine Clearance 0 mL/min (70-130); Calcium 8.6 mg/dL (7.8-10.44); Carbon Dioxide 27 mmol/L (23-31); Chloride 97 mmol/L (98-107); Estimated GFR-MDRD Greater than 90; Globulin 4.1 g/dL (2.4-3.5); Glucose 170 mg/dL (83-110); Potassium 4.7 mmol/L (3.5-5.1); Protein, Total 7.7 g/dL (5.8-8.1); Sodium 134 mmol/L (136-145)
[2017-07-29 16:46] LABS: Troponin I 0.066 ng/mL (< 0.028)
--- NOTE | 2017-07-29 17:14 | RAD ---
PORTABLE CHEST: 07/29/17 HISTORY: Patient complaining of weakness. COMPARISON: 03/30/17 study. Heart size is enlarged. There is increased density in the left lung base which appears to be a combin ation of pleural and parenchymal change, it actually appears fairly similar to the previous exam. The right lung appears clear. IMPRESSION: 1. Cardiomegaly with some mild vascular engorgement but no overt interstitial edema change. 2. Pleural and parenchymal changes in the left base suggesting some infiltrate or atelectasis wi th effusion. Some of these changes could be chronic in nature as they are very similar in appearance to an 03/30/17 study. POS: [facility]
[2017-07-29] MEDS ORDERED: Ondansetron ODT 4 MG TAB SL PRN (21:50)
[2017-07-29] MEDS ORDERED: Ondansetron HCl/PF 4 MG/2 ML Vial IVP PRN ×2 (21:50→23:52)
[2017-07-29 21:56] LABS: Troponin I 0.057 ng/mL (< 0.028)
[2017-07-29 22:45] LABS: Hemoglobin 7.9 g/dL (14.0-18.0)
[2017-07-29] MEDS ORDERED: Dextrose 5% in Water 1,000 ML IV PRN (23:52)
[2017-07-29] MEDS ORDERED: Loratadine 10 MG TAB PO PRN (23:52)
[2017-07-29] MEDS ORDERED: Dextrose 50% Abboject 50 ML SYRINGE SLOW IVP PRN (23:52)
[2017-07-29] MEDS ORDERED: hydrALAZINE 20 MG/ML VIAL SLOW IVP PRN (23:52)
[2017-07-29] MEDS ORDERED: HumaLOG 300 UNITS/3 ML VIAL SC PRN (23:52)
[2017-07-29] MEDS ORDERED: Ondansetron ODT 4 MG TAB PO PRN (23:52)
--- NOTE | 2017-07-30 01:02 | HP ---
PRIMARY CARE PHYSICIAN: Raza Suarez M.D. CHIEF COMPLAINT: Shortness of breath and weakness. HISTORY OF PRESENT ILLNESS: Mr. Bowman is a pleasant 81-year-old gentleman who has a history of diabet es mellitus, previous cerebrovascular disease with left-sided hemiparesis and chronic microcytic anem ia. He says that in the last 2-4 days he has been feeling extremely weak and was feeling short of br eath. He resides in a long term and says that he usually goes through daily physical therapy and says that when he was going through therapy in the last few days, he noticed that when he tries to tr ansfer from his bed to the wheelchair, he was getting extremely weak and on the day of admission he c ould not even perform the transfer, which was unusual for him. He also noticed that his leg seem wea ker and he also seemed like he was falling asleep a lot more. He also noted that his blood pressure had been low in the mornings. Blood work was done in the long term and it was found that he was s everely anemic with a hemoglobin of 5.2 and he is being admitted for symptomatic anemia. The patient denies any feeling dizzy or lightheaded. He denies any chest pain. He has noted some constipation off and on, but does not note that he has any blood in his stools and no hemoptysis, no abdominal jaime n. REVIEW OF SYSTEMS: Constitutional: No fever, no chills, no night sweats, no weight loss. HEENT: N o headaches, no dizziness, no visual changes, no sore throat, rhinorrhea, neck pain, no adenopathy. Pulmonary: No hemoptysis, no cough, no wheezing. Cardiovascular: He denies any chest pain, no shor tness of breath, no PND, no orthopnea. Gastrointestinal: As the history of present illness. Genito urinary: No urinary frequency, hematuria, no hesitancy. Neurologic: No focal weakness, numbness, n o seizures. Musculoskeletal: No muscle pains. He does have some left-sided weakness. Skin and Int egument: No skin changes. No rash. PAST MEDICAL HISTORY: Significant for chronic atrial fibrillation; diabetes mellitus, type 2; hypert ension; dyslipidemia; right-sided CVA with left-sided hemiparesis; and gastroesophageal reflux diseas e. PAST SURGICAL HISTORY: He has had a cholecystectomy and laminectomy. FAMILY HISTORY: Significant for diabetes, hypertension, and heart disease. SOCIAL HISTORY: He resides at [facility]. He is a nonsmoker, nondrinker. He is whee lchair bound. ALLERGIES: No known drug allergies. CURRENT MEDICATIONS: These are taken from electronic records include Tylenol extra strength, amlodip ine 10 mg daily, aspirin 81 mg a day, Dulcolax 5 mg as needed, Robitussin DM 30 mL q.6 hours as neede d, diltiazem CD 120 mg daily, iron sulfate 325 mg daily, furosemide 40 mg daily, lisinopril 10 mg at bedtime, Claritin 10 mg as needed, Protonix 40 mg daily, Actos 15 mg daily, Xarelto 20 mg daily, spir onolactone 25 mg daily, Tegretol 200 mg t.i.d., metformin 1000 mg twice a day, and Mucinex 600 mg twi ce a day. PHYSICAL EXAMINATION: GENERAL: He is alert and oriented. He appears to be in no acute distress. VITAL SIGNS: Stable. HEENT: Pupils are equal, round, and reactive. Extraocular muscles are intact. His sclerae are anic teric. Throat: No erythema, no exudates. NECK: No adenopathy, no bruits. LUNGS: Clear to auscultation bilaterally. There is no wheezing, no rales. CARDIOVASCULAR: He has a normal S1, S2. I did not appreciate an S3 or S4. No murmurs, clicks, no r ubs. ABDOMEN: Soft, mildly obese. There is no rebound or guarding. EXTREMITIES: There is no edema. NEUROLOGICALLY: He has a left hemiparesis. He is able to move his right upper and lower extremity. LABORATORY DATA: White blood cell count 7.1, hemoglobin 5.2, hematocrit is 18.9, platelet count is 5 07. His INR is 1.6. Sodium 134, potassium 4.7, chloride is 97, BUN is 17, creatinine 0.86, glucose is 170. Troponin was 0.06. ASSESSMENT AND PLAN: 1. This is an 81-year-old gentleman who has a severe microcytic anemia. His hemoglobin is at least 2-4 grams lower than what he normally runs and in the past he has had iron levels, which were very lo w. Given he is on Xarelto, there is concern that he could have a GI bleed. For this reason, he is b eing admitted. We will hold the Xarelto and place him on Protonix. We will also consult Gastroenter ology for further recommendations. 2. For diabetes mellitus, since the patient will likely be n.p.o., we will place him on a sliding sc alessandro insulin only for now and trend his blood glucose. We can restart his medications for diabetes la ter during the hospital stay. 3. Hypertension. We will continue his usual antihypertensive medications as well as p.r.n. medicati ons for blood pressure. Further recommendations will be based on the patient's clinical progress.
[2017-07-30 05:44] VITALS: BMI 39.4
[2017-07-30 05:56] LABS: #Eosinphils 0.1 thou/uL (0.0-0.7); #Monocytes 0.6 thou/uL (0.11-0.59); #Neutrophils 5.3 thou/uL (1.40-6.50); %Basophils 0.5 % (0.0-1.0); %Eosinophils 0.9 % (0.0-10.0); %Lymphocytes 14.6 % (21.0-51.0); %Monocytes 8.4 % (0.0-10.0); %Neutrophils 75.7 % (42.0-75.0); Hemoglobin 7.3 g/dL (14.0-18.0); Mean Corpuscular HGB CONC 29.4 g/dL (32.0-36.0); Mean Corpuscular Hemoglobin 22.8 pg (27.0-31.0); Mean Corpuscular Volume 77.8 fl (80.0-94.0); Mean Platelet Volume 7.4 fL (7.4-10.4); Platelet Count 480 thou/uL (130-400); RBC Distribution Width 18.2 % (11.5-14.5); Red Blood Cell (RBC) Count 3.19 mill/uL (4.70-6.10)
[2017-07-30] MEDS ORDERED: metFORMIN XR 500 MG TAB PO SCH (08:00)
[2017-07-30] MEDS: carBAMazepine 200 MG TAB PO SCH ×3 (08:48→20:51)
[2017-07-30] MEDS: Pioglitazone HCl 15 MG TAB PO SCH (08:48)
[2017-07-30] MEDS: Spironolactone 25 MG TAB PO SCH (08:48)
[2017-07-30] MEDS ORDERED: Amlodipine 5 MG TAB PO SCH (09:00)
[2017-07-30] MEDS ORDERED: Sodium Chloride 0.9% 250 ML IVPB SCH (11:45)
[2017-07-30 14:23] LABS: Hemoglobin 6.8 g/dL (14.0-18.0)
[2017-07-30] MEDS ORDERED: GoLYTELY 4,000 ml Bottle PO SCH (15:45)
--- NOTE | 2017-07-30 16:04 | PDOC.PN ---
- Subjective Encounter Start Date: 07/30/17 Encounter Start Time: 11:00 Jerrod is seen today, alert and oriented. having low Blood pressures, he has persistant drop in Hb with evidence of GI bleding. - Objective Resuscitation Status: Resuscitation Status FULL:Full Resuscitation MAR Reviewed: Yes Vital Signs & Weight: Vital Signs (12 hours) Temp Pulse Resp BP BP Pulse Ox 07/30/17 15:36 98.6 F 79 16 133/64 99 07/30/17 12:38 88 151/68 H 07/30/17 11:49 98.3 F 77 16 83/42 L 99 07/30/17 08:48 71 07/30/17 08:00 98.2 F 71 18 128/65 100 07/30/17 05:37 98.0 F 18 L 141/67 H 07/30/17 04:00 98.8 F 78 20 128/68 99 Weight Weight 259 lb 3.2 oz I&O: 07/29/17 07/30/17 07/31/17 06:59 06:59 06:59 Intake Total 465 Balance 465 Result Diagrams: 07/30/17 14:11 07/29/17 16:09 Additional Labs: Accuchecks 07/30/17 07/30/17 10:58 05:39 POC Glucose 159 H 134 H Radiology Reviewed by me: Yes Phys Exam - Physical Examination HEENT: PERRLA, moist MMs Neck: no nodes, no JVD Respiratory: no wheezing, no rales Cardiovascular: RRR, no significant murmur Gastrointestinal: soft, non-tender Musculoskeletal: no edema, pulses present Neurological: non-focal, normal sensation Psychiatric: normal affect, A&O x 3 Dx/Plan (1) NSTEMI (non-ST elevated myocardial infarction) Code(s): I21.4 - NON-ST ELEVATION (NSTEMI) MYOCARDIAL INFARCTION Status: Acute Comment: Will continue pt on BB, will do Echo for Wall motion. (2) Anemia Code(s): D64.9 - ANEMIA, UNSPECIFIED Status: Acute Comment: Hold Xarelto, Follow GI recommedations, Consulted Now. (3) Hypotension Status: Acute Comment: GIven 500ml Fluid Bolus, Likely from BP meds and Worseing anemia. (4) Diabetes mellitus type 2 Code(s): E11.9 - TYPE 2 DIABETES MELLITUS WITHOUT COMPLICATIONS Status: Active Comment: Continue with SSI, keep BG 140-180. - Plan cont current plan of care, PT/OT, health social work professor, respiratory therapy, out of bed/ambulate * . - Discharge Day Encounter end time: 11:35 Review of Systems - Review of Systems Constitutional: negative: fever, chills, sweats, weakness, malaise, other Eyes: negative: Pain, Vision Change, Conjunctivae Inflammation, Eyelid Inflammation, Redness, Other ENT: negative: Ear Pain, Ear Discharge, Nose Pain, Nose Discharge, Nose Congestion, Mouth Pain, Mouth Swelling, Throat Pain, Throat Swelling, Other Cardiovascular: negative: chest pain, palpitations, orthopnea, paroxysmal nocturnal dyspnea, edema, light headedness, other Gastrointestinal: negative: Nausea, Vomiting, Abdominal Pain, Diarrhea, Constipation, Melena, Hematochezia, Other Musculoskeletal: negative: Neck Pain, Shoulder Pain, Arm Pain, Back Pain, Hand Pain, Leg Pain, Foot Pain, Other Skin: negative: Rash, Lesions, Flex, Bruising, Other - Medications/Allergies Allergies/Adverse Reactions: Allergies Allergy/AdvReac Type Severity Reaction Status Date / Time No Known Allergies Allergy Verified 07/29/17 22:30 Medications: Current Medications Acetaminophen (Tylenol) 650 mg PO Q4H PRN PRN Reason: Headache/Fever or Pain Carbamazepine (Tegretol) 200 mg PO TID [facility] Last Admin: 07/30/17 14:16 Dose: 200 mg Dextrose/Water (Dextrose 50%) 25 gm SLOW IVP PRN PRN PRN Reason: Hypoglycemia Diltiazem HCl (Cardizem Cd) 120 mg PO DAILY [facility] Last Admin: 07/30/17 08:48 Dose: 120 mg Glucagon (Glucagon) 1 mg IM PRN PRN PRN Reason: Hypoglycemia Hydralazine HCl (Apresoline) 10 mg SLOW IVP Q4H PRN PRN Reason: Systolic BP > 180 Dextrose/Water (D5w) 1,000 mls @ 0 mls/hr IV .Q0M PRN; As Directed PRN Reason: Hypoglycemia Insulin Human Lispro (Humalog) 0 units SC .MODERATE SLIDING SC PRN PRN Reason: Moderate Correctional Scale Insulin Human Lispro (Humalog) 0 units SC .BEDTIME SLIDING SC PRN PRN Reason: Bedtime Correctional Scale Loratadine (Claritin) 10 mg PO DAILY PRN PRN Reason: Allergies Lorazepam (Ativan) 0.5 mg PO Q4H PRN PRN Reason: Anxiety/Agitation Ondansetron HCl (Zofran Odt) 4 mg PO Q6H PRN PRN Reason: Nausea/Vomiting Ondansetron HCl (Zofran) 4 mg IVP Q6H PRN PRN Reason: Nausea/Vomiting Pantoprazole Sodium (Protonix) 40 mg PO DAILY [facility] Last Admin: 07/30/17 08:48 Dose: 40 mg Pioglitazone HCl (Actos) 15 mg PO DAILY [facility] Last Admin: 07/30/17 08:48 Dose: 15 mg Polyethylene Glycol/Electrolytes (Golytely) 4,000 ml PO WILLCALL [facility] Sodium Chloride (Flush - Normal Saline) 10 ml IVF PRN PRN PRN Reason: Saline Flush Spironolactone (Aldactone) 25 mg PO DAILY [facility] Last Admin: 07/30/17 08:48 Dose: 25 mg
[2017-07-30] MEDS: HumaLOG 300 UNITS/3 ML VIAL SC PRN (17:16)
--- NOTE | 2017-07-30 20:57 | CON ---
DATE OF CONSULTATION: 07/30/2017 REASON FOR CONSULTATION: Anemia. CONSULTING PHYSICIAN: Dr. Yrn Mcleod. HISTORY OF PRESENT ILLNESS: The patient is an 81-year-old male with past medical history of diabetes , cerebrovascular accident with left-sided hemiparesis, atrial fibrillation on anticoagulation, hyper tension, hyperlipidemia, GERD, and chronic microcytic anemia, presenting initially with complaints of increased shortness of breath and weakness. The patient states that he was in his usual state of he alth until approximately 2-4 days ago when he began feeling increased shortness of breath at both res t and exertion as well as general globalized weakness. During the same time, the patient also stated that his blood pressure was significantly different in the morning when compared to the afternoon, i n terms of decrease in the morning and higher in the afternoon. In any case, routine labs were done in the intermediate and he was found to be severely anemic with a hemoglobin of 5.2 and was subsequen tly transferred to [facility] for continued evaluation. At the current time, the patient st ates that he is feeling much better after being infused with 2 units of PRBCs. He currently denies a ny additional feeling dizziness or lightheaded. He did note that prior to admission, he did have javier e constipation characterized as having one solid bowel movement every 4-5 days but did not notice any GI bleeding including hematemesis, melena, or hematochezia. Otherwise, he denies any nausea, vomiti ng, fevers, chills, dysphagia, odynophagia, new rashes, ecchymoses located on his body, or abdominal pain. REVIEW OF SYSTEMS: A 10-category review of systems was obtained with all the responses negative exce pt for the pertinent positives as listed in the HPI. PAST MEDICAL HISTORY: As per HPI. PAST SURGICAL HISTORY: Cholecystectomy, laminectomy. FAMILY HISTORY: Diabetes, hypertension, and coronary artery disease, denies any GI malignancies. SOCIAL HISTORY: Denies any tobacco, alcohol, or illicit drug use. Currently, residing in a intermediate. OUTPATIENT MEDICATIONS: Reviewed. ALLERGIES: No known drug allergies. PHYSICAL EXAMINATION: VITAL SIGNS: Temperature of 98.6, pulse 79, blood pressure 133/64, respiratory rate 16, and saturati ng 99% on room air. GENERAL: The patient is lying in bed, in no acute distress. He is alert and oriented x4. NECK: Supple. No JVD noted. CARDIOVASCULAR: Irregularly irregular rhythm with no discernible murmurs, gallops, or rubs. RESPIRATORY: Clear to auscultation bilaterally with no discernible wheezes or rales. ABDOMEN: Normoactive bowel sounds. Soft, nontender, nondistended. EXTREMITIES: 2+ bilateral lower extremity edema was palpated extending to bilateral knees. LABORATORY DATA: CBC with a white blood cell count of 7, hemoglobin 7.3, hematocrit 24.8, platelets 480, MCV 74.7, RDW 18.7. Chemistry with a sodium of 134, potassium 4.7, chloride 97, CO2 of 27, BUN 17, creatinine 0.86, and glucose 170. IMAGING STUDIES: Chest x-ray obtained on 07/29/2017 showed cardiomegaly with some mild vascular engo rgement, but no overt interstitial edema. There was also parenchymal and pleural changes in the left base suggesting some infiltrate or atelectasis with effusion. ASSESSMENT AND PLAN: The patient is an 81-year-old male with past medical history of diabetes, cereb rovascular accident with left-sided hemiparesis, atrial fibrillation on anticoagulation, hypertension , hyperlipidemia, gastroesophageal reflux disease, and chronic microcytic anemia, presenting with sym ptomatic anemia. Symptomatic anemia: The patient is presenting with a 2 to 4-day history of increased shortness of br eath at both exertion and at rest as well as increased generalized weakness with labs showing a signi ficant anemia or change from his baseline anemia. When compared to his prior hospitalizations, his b aseline anemia is approximately 7.5, hemoglobin 7.5 and hematocrit of 25. However, on admission, thi s was much lower but did respond appropriately to the infusion of 2 units of PRBCs. Iron indices are not available for review prior to the infusion of the PRBCs, but he has been noted to have a slowly downtrending MCV with a microcytic nature at this time as well as increased RDW, concerning for chron ic iron deficiency anemia. At this time, he does not complain of any overt GI bleeding, but given th e indices seen on the CBC and concern for iron deficiency anemia, GI bleed or GI blood loss cannot be ruled out at this time. The patient is on anticoagulation as an outpatient, which could further exa cerbate his current clinical status in regards to his H and H. RECOMMENDATIONS: 1. We would continue to trend H and H daily and transfuse as necessary to maintain an H and H of 7/2 1. 2. We would continue to monitor clinically for signs of overt gastrointestinal bleeding. 3. We will plan for both EGD and colonoscopy tomorrow morning for evaluation of probable iron defici ency anemia. We will place the patient on clear liquid diet tonight with n.p.o. at midnight and GoLY TELY prep tonight in preparation for these procedures. 4. We would avoid any anticoagulation during this time period unless clinically indicated. We will continue to follow. Please call with any questions.
[2017-07-30 22:58] LABS: Hemoglobin 6.6 g/dL (14.0-18.0)
[2017-07-31 06:31] LABS: Hemoglobin 7.6 g/dL (14.0-18.0)
--- NOTE | 2017-07-31 06:53 | PDOC.EVN ---
Event Note - Event Note Event Note: RN called - Pt had 3.3 sec pause. Will hold Cardizem
[2017-07-31] MEDS: carBAMazepine 200 MG TAB PO SCH ×3 (07:28→20:31)
[2017-07-31] MEDS: Pioglitazone HCl 15 MG TAB PO SCH (07:28)
[2017-07-31] MEDS: Spironolactone 25 MG TAB PO SCH (07:28)
[2017-07-31] MEDS ORDERED: Lidocaine 2% Jelly 5 ML TUBE ONE (08:07)
[2017-07-31] MEDS ORDERED: Promethazine HCl 25 MG/ML VIAL IM PRN (09:11)
[2017-07-31] MEDS ORDERED: Ondansetron HCl/PF 4 MG/2 ML Vial IVP PRN (09:11)
[2017-07-31] MEDS ORDERED: Promethazine HCl 25 MG/ML VIAL SLOW IVP PRN (09:11)
--- NOTE | 2017-07-31 09:49 | OP ---
DATE OF PROCEDURE: 07/31/2017 PROCEDURES: EGD with argon plasma coagulation and control of hemorrhage, incomplete colonoscopy. INDICATION FOR PROCEDURE: Iron-deficiency anemia. DESCRIPTION OF PROCEDURE: After the risks and benefit of the procedure was explained to the patient including risk of bleeding, infection, perforation, reaction to anesthesia and/or pain, informed cons ent was obtained. The patient was then taken back to the endoscopy suite where deep sedation was adm inistered via propofol and anesthesia support. The standard gastroscope was then introduced into the mouth with intubation of the esophagus, stomach and the proximal small intestine with the findings l isted below. The patient tolerated the procedure well with no immediate perioperative complications. Findings are as follows: ESOPHAGUS: Normal-appearing mucosa was seen in the proximal, mid and distal esophagus, there was no evidence of erosions, ulcerations, mass lesions or active/recent bleeding. STOMACH: Normal-appearing mucosa was seen in the cardia, fundus, antrum and incisura; however, 2 maritza ear erosions were seen one along the lesser curvature and the other along the greater curvature of th e stomach. They were exhibiting oozing a small amount of blood during the procedure. There was no a ssociated ulceration with these lesions or mass lesions, also seen were two 1-2 mm arteriovenous malf ormations along the greater curvature of the stomach that were nonbleeding. All four of these lesion s were intervened upon with argon plasma coagulation with good hemostasis achieved. No other abnorma lities were seen in the stomach with no hiatal hernia seen on gastric retroflexion. DUODENUM: Normal appearing mucosa was seen in both the duodenal bulb and second portion of the duode num with no evidence of erosions, ulcerations, mass lesions or active/recent bleeding. IMPRESSION: 1. Two 3-4 mm linear erosions seen oozing blood on the lesser curvature and greater curvature of the stomach, status post APC with good hemostasis achieved. 2. 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 RECOMMENDATIONS: 1. We would continue the patient on pantoprazole 40 mg daily. 2. We would continue to trend H&H and transfuse as necessary to maintain an H&H of 7/21. 3. We would continue to monitor clinically for signs of active gastrointestinal bleeding. 4. Proceed to colonoscopy. COLONOSCOPY: FINDINGS: After the risks and benefits of the procedure were explained to the patient including risk s of bleeding, infection, perforation, reaction to anesthesia and/or pain, informed consent was obtai minh for colonoscopy. The patient was then taken to the endoscopy suite where deep sedation was admin istered via propofol and anesthesia support. The standard colonoscope was then introduced into the r ectum after our digital rectal examination and advanced all the way to the ascending colon. Further progress could not be achieved due to significant redundancy of the colon as well as pliability of th e colon (floppy) that inhibited further progress. The application of manual abdominal pressure and c hanging the patient's position to a supine position was performed, but did not facilitate cecal intub ation. The quality of the prep was good. The patient tolerated the procedure well with no immediate perioperative complications. RASHIDA: Normal digital rectal examination. FINDINGS: The standard colonoscope could not be advanced past the proximal ascending colon due to si gnificant redundancy and floppiness of the colon that was not amenable to change in position or manua l abdominal pressure, the proximal ascending colon, cecum and ileocecal valve were not visualized dur ing this examination of the mucosa visualized. Normal appearing mucosa was seen in the distal ascend ing colon, transverse, descending, sigmoid colon, and rectum, small internal hemorrhoids were seen on rectal retroflexion. IMPRESSION: 1. Incomplete evaluation of the colonoscopy due to significant redundancy of the colon with inabilit y to visualize the cecum, ileocecal valve, and proximal ascending colon. 2. Small internal hemorrhoids. RECOMMENDATIONS: 1. We would continue to trend H&H and transfuse as necessary to maintain an H&H of 7/21. 2. We would continue to monitor clinically for signs of active gastrointestinal bleeding. 3. If the patient continues to decrease his H&H over time after intervention on the upper GI tract, we then consider either tagged red blood cell scan or CT colonography for further evaluation of the r ight colon. There was nothing on examination today. 4. We will place the patient on higher fiber diet given the presence of hemorrhoids. 5. We would hold any anticoagulation for the next 24-48 hours given the intervention performed on th e upper endoscopy.
[2017-07-31 14:22] LABS: Hemoglobin 7.8 g/dL (14.0-18.0)
--- NOTE | 2017-07-31 16:04 | PDOC.PN ---
- Subjective Encounter Start Date: 07/31/17 Encounter Start Time: 09:00 Patient is seen today, alert and oriented. No other Concenr snoted. Pt is Stbale , no Black stool noted. - Objective Resuscitation Status: Resuscitation Status FULL:Full Resuscitation MAR Reviewed: Yes Vital Signs & Weight: Vital Signs (12 hours) Temp Pulse Pulse Resp BP BP Pulse Ox 07/31/17 15:31 98.5 F 78 18 140/70 93 L 07/31/17 12:00 98.4 F 77 16 148/71 H 98 07/31/17 09:48 98.6 F 80 18 158/76 H 99 07/31/17 08:00 98.4 F 83 16 167/74 H 93 L 07/31/17 05:14 98.3 F 75 20 150/67 H 94 L Weight Weight 260 lb 1.6 oz I&O: 07/30/17 07/31/17 08/01/17 06:59 06:59 06:59 Intake Total 465 5200 Balance 465 5200 Result Diagrams: 07/31/17 14:06 07/29/17 16:09 Additional Labs: Accuchecks 07/31/17 07/30/17 07/30/17 05:30 21:04 16:47 POC Glucose 142 H 162 H 178 H Radiology Reviewed by me: Yes Phys Exam - Physical Examination HEENT: PERRLA, moist MMs Neck: no nodes, no JVD Respiratory: no wheezing, no rales Cardiovascular: RRR, no significant murmur Gastrointestinal: soft, non-tender Musculoskeletal: pulses present Lymphatic: no nodes Psychiatric: normal affect, A&O x 3 Skin: no rash, normal turgor Dx/Plan (1) NSTEMI (non-ST elevated myocardial infarction) Code(s): I21.4 - NON-ST ELEVATION (NSTEMI) MYOCARDIAL INFARCTION Status: Acute Comment: Will continue pt on BB, will do Echo for Wall motion. (2) Anemia Code(s): D64.9 - ANEMIA, UNSPECIFIED Status: Acute Comment: Hold Xarelto, Showed gastric Erosion on greater Curvature, plan to Hold AC for 24-48 hrs, Watch for repeat Hb drop. (3) Hypotension Status: Acute Comment: GIven 500ml Fluid Bolus, Likely from BP meds and Worseing anemia. stbale. (4) Diabetes mellitus type 2 Code(s): E11.9 - TYPE 2 DIABETES MELLITUS WITHOUT COMPLICATIONS Status: Active Comment: Continue with SSI, keep BG 140-180. - Plan cont current plan of care, plan discussed w/ family, PT/OT, social work supervisor, respiratory therapy, incentive spirometry, out of bed/ambulate, DVT proph w/SCDs * . - Discharge Day Encounter end time: 09:30 Review of Systems - Review of Systems Constitutional: weakness, malaise Eyes: negative: Pain, Vision Change, Conjunctivae Inflammation, Eyelid Inflammation, Redness, Other ENT: negative: Ear Pain, Ear Discharge, Nose Pain, Nose Discharge, Nose Congestion, Mouth Pain, Mouth Swelling, Throat Pain, Throat Swelling, Other Respiratory: negative: Cough, Dry, Shortness of Breath, Hemoptysis, SOB with Excertion, Pleuritic Pain, Sputum, Wheezing Cardiovascular: negative: chest pain, palpitations, orthopnea, paroxysmal nocturnal dyspnea, edema, light headedness, other Gastrointestinal: negative: Nausea, Vomiting, Abdominal Pain, Diarrhea, Constipation, Melena, Hematochezia, Other Genitourinary: negative: Dysuria, Frequency, Incontinence, Hematuria, Retention , Other Musculoskeletal: negative: Neck Pain, Shoulder Pain, Arm Pain, Back Pain, Hand Pain, Leg Pain, Foot Pain, Other Skin: negative: Rash, Lesions, Flex, Bruising, Other - Medications/Allergies Allergies/Adverse Reactions: Allergies Allergy/AdvReac Type Severity Reaction Status Date / Time No Known Allergies Allergy Verified 07/29/17 22:30 Medications: Current Medications Acetaminophen (Tylenol) 650 mg PO Q4H PRN PRN Reason: Headache/Fever or Pain Carbamazepine (Tegretol) 200 mg PO TID [facility] Last Admin: 07/31/17 15:17 Dose: 200 mg Dextrose/Water (Dextrose 50%) 25 gm SLOW IVP PRN PRN PRN Reason: Hypoglycemia Diltiazem HCl (Cardizem Cd) 120 mg PO DAILY [facility] Last Admin: 07/30/17 08:48 Dose: 120 mg Glucagon (Glucagon) 1 mg IM PRN PRN PRN Reason: Hypoglycemia Hydralazine HCl (Apresoline) 10 mg SLOW IVP Q4H PRN PRN Reason: Systolic BP > 180 Dextrose/Water (D5w) 1,000 mls @ 0 mls/hr IV .Q0M PRN; As Directed PRN Reason: Hypoglycemia Insulin Human Lispro (Humalog) 0 units SC .MODERATE SLIDING SC PRN PRN Reason: Moderate Correctional Scale Last Admin: 07/30/17 17:16 Dose: 2 unit Insulin Human Lispro (Humalog) 0 units SC .BEDTIME SLIDING SC PRN PRN Reason: Bedtime Correctional Scale Loratadine (Claritin) 10 mg PO DAILY PRN PRN Reason: Allergies Lorazepam (Ativan) 0.5 mg PO Q4H PRN PRN Reason: Anxiety/Agitation Ondansetron HCl (Zofran Odt) 4 mg PO Q6H PRN PRN Reason: Nausea/Vomiting Ondansetron HCl (Zofran) 4 mg IVP Q6H PRN PRN Reason: Nausea/Vomiting Pantoprazole Sodium (Protonix) 40 mg PO DAILY [facility] Last Admin: 07/31/17 07:28 Dose: 40 mg Pioglitazone HCl (Actos) 15 mg PO DAILY [facility] Last Admin: 07/31/17 07:28 Dose: 15 mg Polyethylene Glycol/Electrolytes (Golytely) 4,000 ml PO WILLCALL [facility] Last Admin: 07/30/17 22:23 Dose: 4,000 ml Sodium Chloride (Flush - Normal Saline) 10 ml IVF PRN PRN PRN Reason: Saline Flush Spironolactone (Aldactone) 25 mg PO DAILY [facility] Last Admin: 07/31/17 07:28 Dose: 25 mg
[2017-07-31] MEDS ORDERED: PROPOFOL 200 MG/20 ML VIAL ONE (16:16)
[2017-07-31] MEDS: HumaLOG 300 UNITS/3 ML VIAL SC PRN (16:44)
[2017-07-31 22:27] LABS: Hemoglobin 7.9 g/dL (14.0-18.0)
[2017-08-01] MEDS: Acetaminophen 325 MG TAB PO PRN ×3 (01:27→20:46)
[2017-08-01 06:06] LABS: Hemoglobin 7.6 g/dL (14.0-18.0)
[2017-08-01] MEDS: Pioglitazone HCl 15 MG TAB PO SCH (08:23)
[2017-08-01] MEDS: carBAMazepine 200 MG TAB PO SCH ×3 (08:23→20:45)
[2017-08-01] MEDS: Spironolactone 25 MG TAB PO SCH (08:23)
--- NOTE | 2017-08-01 11:01 | PDOC.PN ---
- Subjective Encounter Start Date: 08/01/17 Encounter Start Time: 10:45 Subjective: f/u for GI bleed from gastric source s/p Argon Plasma Coagulation -: s/p 3u PRBC's total and serial H/H monitoring given hx of Xarelto use. -: Feels good overall. No new complaints - Objective Resuscitation Status: Resuscitation Status FULL:Full Resuscitation MAR Reviewed: Yes Vital Signs & Weight: Vital Signs (12 hours) Temp Pulse Resp BP Pulse Ox 08/01/17 07:33 98.5 F 82 18 92 L 08/01/17 07:23 98.5 F 82 18 142/73 H 92 L 08/01/17 04:00 97.5 F L 87 20 162/78 H 94 L Weight Weight 250 lb 1.6 oz I&O: 07/31/17 08/01/17 08/02/17 06:59 06:59 06:59 Intake Total 5200 1160 Balance 5200 1160 Result Diagrams: 08/01/17 05:49 07/29/17 16:09 Additional Labs: Accuchecks 07/31/17 07/31/17 07/31/17 21:01 16:24 11:16 POC Glucose 209 H 171 H 148 H Laboratory Tests 07/31/17 07/31/17 14:06 22:13 Hgb 7.8 L 7.9 L Radiology Reviewed by me: Yes (2D echo - EF 55-60%, Grade I/III diast dysfxn) EKG Reviewed by me: Yes (Tele - A-fib in 70's) Phys Exam - Physical Examination Constitutional: NAD HEENT: PERRLA, oral pharynx no lesions Neck: no JVD, supple Respiratory: no wheezing, clear to auscultation bilateral Cardiovascular: irregular Gastrointestinal: soft, non-tender, no distention, positive bowel sounds Musculoskeletal: no edema, pulses present L hemiparesis Neurological: normal sensation, moves all 4 limbs Psychiatric: A&O x 3 Skin: normal turgor, cap refill <2 seconds Dx/Plan (1) Gastric erosions Code(s): K25.9 - GASTRIC ULCER, UNSP ACUTE OR CHRONIC, W/O HEMOR OR PERF Status: Acute Qualifiers: Gastric ulcer chronicity: acute Qualified Code(s): K25.3 - Acute gastric ulcer without hemorrhage or perforation Comment: s/p APC on 07/31/17, continue PPI, serial H/H monitoring (2) Symptomatic anemia Code(s): D64.9 - ANEMIA, UNSPECIFIED Status: Acute Comment: Microcytic indices with iron-deficiency component, s/p 3u PRBC's, serial H/H monitoring (3) Hypertension Code(s): I10 - ESSENTIAL (PRIMARY) HYPERTENSION Status: Chronic Qualifiers: Hypertension type: essential hypertension Qualified Code(s): I10 - Essential (primary) hypertension Comment: Continue BP regimen, titrate to clinical response, Resume Lisinopril 10mg daily (4) Diabetes mellitus type 2 Code(s): E11.9 - TYPE 2 DIABETES MELLITUS WITHOUT COMPLICATIONS Status: Active Comment: ISS, continue Actos 15mg daily (5) Chronic atrial fibrillation Code(s): I48.2 - CHRONIC ATRIAL FIBRILLATION Status: Chronic Comment: Rate controlled, likely resume Xarelto in 48h - Plan Stable overall -: Continue Protonix 40mg po daily -: Hold Xarelto another 24h -: Continue Cardizem 120mg daily -: AM lab: H/H * Likely d/c 08/02/17
[2017-08-01] MEDS: HumaLOG 300 UNITS/3 ML VIAL SC PRN ×2 (11:59→17:32)
[2017-08-01 14:25] LABS: Hemoglobin 7.6 g/dL (14.0-18.0)
[2017-08-01] MEDS: Lorazepam 1 MG TAB PO PRN (20:45)
[2017-08-01] MEDS ORDERED: Lisinopril 10 MG TAB PO SCH (21:00)
--- NOTE | 2017-08-01 21:18 | PRG ---
DATE OF SERVICE: 08/01/2017 REASON FOR CONSULTATION: Anemia. SUBJECTIVE: The patient states that he is doing well without any problems or events overnight. Curr ently, denies any nausea, vomiting, fevers, chills, shortness of breath, chest pain, abdominal pain, GI bleeding, odynophagia or dysphagia. OBJECTIVE: VITAL SIGNS: Temperature of 98 degrees, pulse 78, blood pressure 173/76, respiratory rate 16, sattin g 94% on room air. GENERAL: The patient is lying in bed, in no acute distress. Alert and oriented x4. CARDIOVASCULAR: Irregularly irregular rhythm with no discernible murmurs, gallops or rubs. RESPIRATORY: Clear. ABDOMEN: Normoactive bowel sounds, soft, nontender, nondistended. EXTREMITIES: 2+ bilateral lower extremity edema palpated extending to the bilateral knees. LABORATORY DATA: Repeat H&H showed a hemoglobin of 7.6, hematocrit of 25.4. IMAGING STUDIES: No current GI imaging is available for review. ASSESSMENT: The patient is an 81-year-old male with past medical history of diabetes, cerebrovascula r accident with left-sided hemiparesis, atrial fibrillation on anticoagulation (Xarelto), hypertensio n, hyperlipidemia, gastroesophageal reflux disease, and chronic microcytic anemia, presenting with sy mptomatic anemia. Symptomatic anemia: The patient presented with a 2-4 day history of increased shortness of breath wi th both exertion and at rest as well as increased generalized weakness with labs showing a worsening of his anemia from baseline. He underwent upper and lower endoscopy on 07/31/2017 with the upper end oscopy showing 2 small nonbleeding arteriovenous malformations that were successfully treated with ar zack plasma coagulation. He was also seen to have 2 linear erosions that were mildly oozing blood buzz ng the lesser and greater curvatures of the stomach, they were also successfully cauterized with braeden n plasma coagulation. However, the colonoscopy was incomplete with inability to reach the proximal a scending colon and cecum making any bleeding source within the right colon definitely within the diff erential at this time. However, he continues to be asymptomatic with no clinical evidence of overt g astrointestinal bleeding at this time. Upon review of his labs today though he does continue to have a slightly down trending H&H concerning for continued blood loss. ASSESSMENT AND PLAN: 1. We would continue to trend H&H and transfuse as necessary to maintain an H&H of 11/27. 2. Continue to monitor clinically for signs of GI bleeding. 3. We would continue pantoprazole 40 mg daily for upper GI bleeding source. 4. If he continues to have a decrease in his H&H, we would possibly consider repeat upper endoscopy for evaluation of the upper GI tract and possible bleeding in that region. 5. We would also consider a tagged red blood cell scan to determine localization of the blood loss t o see if it was an upper or lower GI bleeding tract source. We will continue to follow. Please call with any questions.
[2017-08-01 22:32] LABS: Hemoglobin 7.7 g/dL (14.0-18.0)
[2017-08-02] MEDS: Lorazepam 1 MG TAB PO PRN (02:30)
[2017-08-02 05:20] LABS: Hemoglobin 7.8 g/dL (14.0-18.0)
[2017-08-02] MEDS: carBAMazepine 200 MG TAB PO SCH (08:51)
[2017-08-02] MEDS: Pioglitazone HCl 15 MG TAB PO SCH (08:52)
[2017-08-02] MEDS: Spironolactone 25 MG TAB PO SCH (08:52)
--- NOTE | 2017-08-02 10:12 | PRG ---
DATE OF SERVICE: 08/02/2017 REASON FOR CONSULTATION: Anemia. SUBJECTIVE: The patient states that he is doing well without any problems or events overnight. No f urther episodes of GI bleeding. OBJECTIVE: VITAL SIGNS: Temperature 98.6, pulse 93, blood pressure 141/68, respiratory rate 21, satting 94% on room air. GENERAL: Patient is lying in bed in no acute distress. Alert and oriented x4. CARDIOVASCULAR: Irregularly irregular rhythm with no discernible murmurs, gallops or rubs. RESPIRATORY: Clear to auscultation bilaterally with no discernible wheezes or rales. ABDOMEN: Normoactive bowel sounds, soft, nontender, nondistended. EXTREMITIES: A 1+/2+ bilateral lower extremity edema extending to the bilateral knees. LABORATORY DATA: Repeat hemoglobin and hematocrit showed hemoglobin of 7.8 and hematocrit of 26.8. IMAGING STUDIES: No current GI imaging is available for review. ASSESSMENT: 1. Patient is an 81-year-old male with past medical history of diabetes, cerebrovascular accident wi th left-sided hemiparesis, atrial fibrillation on anticoagulation, hypertension, hyperlipidemia, roxane roesophageal reflux disease, and chronic microcytic anemia presenting with symptomatic anemia. 2. Symptomatic anemia. The patient presented with a 2-4 day history of increased shortness of breat h on both exertion and rest as well as increased generalized weakness with routine labs on admission showing worsening of the anemia from baseline. He underwent upper and lower endoscopy on 07/31/2017 showing a possible source of his anemia including two nonbleeding arteriovenous malformations as well as 2 linear erosions that were mildly oozing blood along the lesser and greater curvatures of the st omach. All of these lesions were successfully cauterized with argon plasma coagulation. In the imme diate postoperative period or within the next 24-48 hours after the procedures, he did have a slight decrease in his hemoglobin and hematocrit, but this has since stabilized over the last 12-24 hours. He denies any current symptoms of gastrointestinal bleeding. RECOMMENDATIONS: 1. Would continue to trend hemoglobin and hematocrit and transfuse as necessary to maintain an hemog lobin and hematocrit of 7/21, however, frequent hemoglobin and hematocrit checks q.4-6 hours is not n ecessary. I would recommend drawing it daily to prevent iatrogenic anemia. 2. Continue to monitor clinically for any signs of bleeding. 3. We will continue pantoprazole 40 mg daily in the post procedure setting with an upper GI bleeding source. 4. If the patient exhibits any further decrease in his hemoglobin and hematocrit or clinically with GI bleeding, could consider repeat upper endoscopy. 5. At this time, with the stability of his hemoglobin and hematocrit and no clinical evidence of gas trointestinal bleeding, patient can be discharged from a GI standpoint with follow up in clinic withi n 2 weeks. We will sign off at this time. Please call with any questions.
--- NOTE | 2017-08-02 11:25 | PQF ---
CLINICAL DOCUMENTATION IMPROVEMENT CLARIFICATION FORM: ICD-10 Updated PLEASE DO AN ADDENDUM TO THE PROGRESS NOTE WITH ANY DOCUMENTATION UPDATES OR ADDITIONS AND CARRY THROUGH TO DC SUMMARY. THANK YOU. DATE: 08/02 ATTN: DR. OCHOA WHATLEY Please exercise your independent, professional judgment in responding to the clarification form. Clinical indicators are provided on the bottom of this form for your review. Please check appropriate box(s): [ ] NSTEMI [ ] NSTEMI TYPE II [ ] Demand Ischemia [ ] Other diagnosis [ x ] Unable to determine CLINICAL INDICATORS - SIGNS / SYMPTOMS / LABS TROP I: 0.066, 0.057 (ON ADMIT, 07/29) H/H: 5.2/18.9 (ON ADMIT, 07/29) ATTENDING PHYSICIAN PN 07/30 & 24: DX/PLAN: 1) NSTEMI, ACUTE; 2) ANEMIA, ACUTE RISKS: SYMPTOMATIC ANEMIA HX HTN HX NE HX DM II TREATMENTS: TRANSFUSION 3U PRBC'S TELEMETRY MONITORING GI CONSULT EGD W/APC FOR OOZING GASTRIC ULCER THANK YOU! Kaylah (This form is maintained as a part of the permanent medical record) 2014 [employer]. All Rights Reserved Kaylah Skelton RN, BSN [email or web address] Office: [phone] [facility]
[2017-08-02] MEDS: HumaLOG 300 UNITS/3 ML VIAL SC PRN (11:59)
--- NOTE | 2017-08-02 12:04 | DIS ---
DATE OF ADMISSION: 07/29/2017 DATE OF DISCHARGE: 08/02/2017 DISCHARGE DIAGNOSES: 1. Upper gastrointestinal bleed, likely secondary to gastric erosions/ulcers. 2. Status post argon plasma coagulation to gastric ulcerations on 07/31/2017. 3. Symptomatic anemia secondarily to acute blood loss, status post 3 units of packed red blood cells , improved. 4. Hypertension, stable. 5. Diabetes mellitus type 2, stable. 6. Chronic atrial fibrillation on chronic anticoagulation with Xarelto. CONSULTATION: Dr. Laureano with GI Service. PERTINENT LABORATORY DATA AND X-RAY FINDINGS: 1. CBC showed hemoglobin ranging between 5.2-7.9, hematocrit 27, and MCV 78. PT 19.6, INR 1.6. Sto ol Hemoccult dated 07/29/2017 negative x1. Portable chest x-ray dated 07/29/2017 showed cardiomegaly with mild vascular prominence. Atelectasis noted. 2. A 2D transthoracic echocardiogram dated 07/30/2017 showed ejection fraction of 55%-60%. Grade I/ III diastolic dysfunction. Moderate bilateral pleural effusions. Esophagogastroduodenoscopy dated 0 07/31/2017 showed two 4 mm linear erosions with active bleeding in the lesser curvature and greater cu rvature of the stomach status post argon plasma coagulation. 3. Two small arteriovenous malformations along the greater curvature of the stomach. Colonoscopy da ileana 07/31/2017 showed incomplete evaluation of the colon due to significant redundancy of tissue. Sm all internal hemorrhoids noted. HOSPITAL COURSE: Patient was admitted to the telemetry unit after initially presenting with shortnes s of breath and weakness. The patient was noted with severe anemia with initial hemoglobin in the 5. 2 range. The patient is on chronic Xarelto and aspirin therapy in the context of atrial fibrillation . The patient received a total of 3 units of packed red blood cells during the hospital course with serial hemoglobin and hematocrit monitoring and GI consultation. The patient underwent EGD and colon oscopy evaluation on 07/31/2017 with findings as described previously. Patient underwent argon plasm a coagulation for hemostasis of 2 ulcerations in the lesser and greater curvature of the stomach and hemoglobin remained essentially stable for the hospital course. The patient was treated with Protoni x 40 mg IV, transitioning to 40 mg p.o. daily. The patient overall remained clinically stable, able to tolerate regular oral intake and symptomatically improved with transfusions of packed red blood ce lls. Current recommendations are for serial hemoglobin and hematocrit monitoring and holding anticoa gulation for 3-5 days after discharge. I have examined and reviewed the findings with the patient as well as follow up instructions which patient verbalizes understanding. Overall, patient clinically stable and ready for discharge on 08/02/2017. DISCHARGE MEDICATIONS: 1. Norvasc 10 mg 1 tab p.o. daily. 2. Enteric coated aspirin 81 mg p.o. daily, resume on 08/06/2017. 3. Dulcolax 5 mg p.o. daily. 4. Carbamazepine 200 mg p.o. t.i.d. 5. Diltiazem CD 120 mg p.o. daily. 6. Ferrous gluconate 324 mg p.o. daily. 7. Lasix 40 mg p.o. daily. 8. Lisinopril 10 mg p.o. at bedtime. 9. Claritin 10 mg p.o. daily. 10. Metformin ER 1000 mg p.o. b.i.d. 11. Protonix 40 mg p.o. daily. 12. Actos 15 mg p.o. daily. 13. Xarelto 20 mg p.o. daily, resume on 08/08/2017. 14. Spironolactone 25 mg p.o. daily. FOLLOWUP: Patient to follow up with Dr. Suarez within 7 days of discharge at [facility]. The patient will follow up with Dr. Marcelo Laureano, GI Service within 2 weeks of discharg e. CONDITION ON DISCHARGE: Stable. ACTIVITY: Ad alejandro. Wheelchair for mobilization. SPECIAL INSTRUCTIONS: Repeat CBC in 5 days after discharge. DIET: ADA and heart healthy. CODE STATUS: FULL. DISPOSITION: Discharged to [facility] on 08/02/2017. Total time preparing and coordinating discharge is 35 minutes.
[2017-08-02 12:31] VITALS: BP 156/78; TEMP 98.4
--- NOTE | 2017-08-15 01:26 | EKG ---
Test Reason : LOW HH Blood Pressure : / mmHG Vent. Rate : 067 BPM Atrial Rate : 088 BPM P-R Int : 000 ms QRS Dur : 080 ms QT Int : 396 ms P-R-T Axes : 000 025 007 degrees QTc Int : 418 ms Atrial fibrillation Nonspecific ST and T wave abnormality , probably digitalis effect Abnormal ECG Confirmed by ELLA JONES, GARIMA ([id number]), acquisitions editor AMINA NEVAREZ ([id number]) on 08/15/2017 1:25:45 AM Referred By: ELLA Confirmed By:GARIMA JARAMILLO MD
== END 2017-08-02 13:20 | DRG 377 ==
LOC: ERS 15:25 → 2NO 21:33
PROVIDERS: ADMIT Internal Medicine; ATTEND Internal Medicine
PROC: 30233N1 Transfusion of Nonautologous Red Blood Cells into Peripheral Vein, Percutaneous Approach (ICD-10-PCS; principal; 2017-07-31)
PROC: 0W3P8ZZ Control Bleeding in Gastrointestinal Tract, Via Natural or Artificial Opening Endoscopic (ICD-10-PCS; 2017-07-31)
PROC: 0DJD8ZZ Inspection of Lower Intestinal Tract, Via Natural or Artificial Opening Endoscopic (ICD-10-PCS; 2017-07-31)
DX: K25.0 Acute gastric ulcer with hemorrhage (principal); I21.4 Non-ST elevation (NSTEMI) myocardial infarction; I69.354 Hemiplegia and hemiparesis following cerebral infarction affecting left non-dominant side; I48.2 Chronic atrial fibrillation; I95.9 Hypotension, unspecified; E11.9 Type 2 diabetes mellitus without complications; D50.9 Iron deficiency anemia, unspecified; D62 Acute posthemorrhagic anemia; E78.5 Hyperlipidemia, unspecified; I10 Essential (primary) hypertension; I25.2 Old myocardial infarction; Q27.33 Arteriovenous malformation of digestive system vessel; K64.8 Other hemorrhoids; Z79.01 Long term (current) use of anticoagulants; K21.9 Gastro-esophageal reflux disease without esophagitis
CPT/HCPCS: 36415; 36416; 36430; 71045; 80048; 80061; 80076; 82274; 82550; 82553; 83036; 84443; 84484; 85014; 85018; 85025; 85060; 85610; 86850; 86900; 86901; 93005; 93306; 94760; A4216; J2704; P9016

== ENCOUNTER 2017-08-19 13:06 | Observation (INO) | payer MEDICARE, MEDICAID ==
[2017-08-19 13:56] LABS: #Basophils 0.1 thou/uL (0.0-0.2); #Eosinphils 0.2 thou/uL (0.0-0.7); #Lymphocytes 1.1 thou/uL (1.20-3.40); #Monocytes 0.5 thou/uL (0.11-0.59); #Neutrophils 5.8 thou/uL (1.40-6.50); %Basophils 0.7 % (0.0-1.0); %Eosinophils 2.3 % (0.0-10.0); %Lymphocytes 13.9 % (21.0-51.0); %Monocytes 6.4 % (0.0-10.0); %Neutrophils 76.6 % (42.0-75.0); Hemoglobin 7.5 g/dL (14.0-18.0); Mean Corpuscular HGB CONC 28.1 g/dL (32.0-36.0); Mean Platelet Volume 7.5 fL (7.4-10.4); Platelet Count 541 thou/uL (130-400); RBC Distribution Width 20.1 % (11.5-14.5); Red Blood Cell (RBC) Count 3.25 mill/uL (4.70-6.10); White Blood Cell (WBC) Count 7.6 thou/uL (4.8-10.8)
--- NOTE | 2017-08-19 13:58 | RAD ---
SINGLE VIEW CHEST: Date: 08/19/17 COMPARISON: 07/29/17. HISTORY: Chest pain and shortness of breath. FINDINGS: Single view of the chest shows an enlarged but stable cardiomediastinal silhouette. There is stable o bscurity of the left hemidiaphragm which may represent atelectasis or an infiltrate. IMPRESSION: Left basilar atelectasis versus infiltrate. POS: [facility]
[2017-08-19 14:19] LABS: ALT (SGPT) 8 U/L (8-55); AST (SGOT) 23 U/L (5-34); Alkaline Phosphatase 129 U/L (40-150); Anion Gap 13 mmol/L (10-20); BUN (Urea Nitrogen) 7 mg/dL (8.4-25.7); Bilirubin, Total 0.2 mg/dL (0.2-1.2); CK (CPK) 56 U/L (30-200); Calc. Creatinine Clearance 0 mL/min (70-130); Calcium 8.2 mg/dL (7.8-10.44); Carbon Dioxide 28 mmol/L (23-31); Chloride 98 mmol/L (98-107); Estimated GFR-MDRD Greater than 90; Globulin 3.9 g/dL (2.4-3.5); Glucose 73 mg/dL (83-110); Potassium 3.9 mmol/L (3.5-5.1); Protein, Total 6.9 g/dL (5.8-8.1); Sodium 135 mmol/L (136-145)
[2017-08-19 14:24] LABS: CKMB 3.3 ng/mL (0-6.6); Troponin I 0.089 ng/mL (< 0.028)
--- NOTE | 2017-08-19 16:41 | ULT ---
EXAM: LEFT LOWER EXTREMITY VENOUS ULTRASOUND: 08/19/17 HISTORY: Left lower extremity edema. Pain. COMPARISON: 04/26/17. TECHNIQUE: Hurt scale, color flow, doppler imaging with spectral waveform analysis performed in the left lower e xtremity venous system. FINDINGS: There is compressibility, presence of flow and augmentation in the common femoral vein, femoral vein, and popliteal vein. There is flow in the greater saphenous vein, profunda vein and posterior tibial vein. Incidental lymph nodes in the left groin are noted with a preserved hilum measuring 1.7 cm in m aximal dimension. There is soft tissue edema. IMPRESSION: 1. No evidence of thrombus of the left lower extremity deep venous system. 2. Soft tissue edema. POS: [facility]
[2017-08-19] MEDS ORDERED: Acetaminophen 650 MG Suppository PR PRN (17:36)
[2017-08-19] MEDS ORDERED: Acetaminophen 325 MG TAB PO PRN (17:36)
[2017-08-19] MEDS ORDERED: Nitroglycerin 0.4 MG TAB (25 Tab Bottle) PO PRN (17:36)
[2017-08-19] MEDS ORDERED: Bisacodyl 5 MG TAB PO PRN (17:36)
[2017-08-19] MEDS ORDERED: Dextrose 50% Abboject 50 ML SYRINGE SLOW IVP PRN (17:40)
[2017-08-19] MEDS ORDERED: HumaLOG 300 UNITS/3 ML VIAL SC PRN (17:40)
[2017-08-19] MEDS ORDERED: Dextrose 5% in Water 1,000 ML IV PRN (17:40)
[2017-08-19 18:49] LABS: Troponin I 0.098 ng/mL (< 0.028)
--- NOTE | 2017-08-19 18:56 | HP ---
PRIMARY CARE PHYSICIAN: Raza Suarez M.D. CHIEF COMPLAINT: Chest pain. HISTORY OF PRESENT ILLNESS: Mr. Bowman is a pleasant 81-year-old gentleman who was seen at [facility] on 08/19/2017. He was hospitalized at this facility from 07/29/2017 to 08/02/2017 of this year for GI bleed. At jonna t time, he was found to have upper gastrointestinal bleed, likely secondary to gastric erosions/ulcer s. He was discharged home and advised to resume aspirin on 08/06/2017 and rivaroxaban on 08/08/2017. He reports that he was doing well following the discharge. He denies any blood in stools. He denies any black stools. He denies any chest pain until today. Today morning, he was woken up from sleep because of chest discomfort and choking sensation. He repo rts that he had sensation of pressures over the retrosternal area, nonradiating, 8/10 at its worst, o n and off. No known aggravating or relieving factors, accompanied by shortness of breath and nausea, but not by diaphoresis. He also reports coughing a few times. He reports that he had to sit up bec ause of shortness of breath, at which point the shortness of breath became better. REVIEW OF SYSTEMS: The following complete review of systems was negative, unless otherwise mentioned in the HPI or below: Constitutional: Weight loss or gain, ability to conduct usual activities. Sk in: Rash, itching. Eyes: Double vision, pain. ENT/Mouth: Nose bleeding, neck stiffness, pain, te nderness. Cardiovascular: Palpitations, dyspnea on exertion, orthopnea. Respiratory: Shortness of breath, wheezing, cough, hemoptysis, fever or night sweats. Gastrointestinal: Poor appetite, abdom inal pain, heartburn, nausea, vomiting, constipation, or diarrhea. Genitourinary: Urgency, frequenc y, dysuria, nocturia. Musculoskeletal: Pain, swelling. Neurologic/Psychiatric: Anxiety, depressio n. Allergy/Immunologic: Skin rash, bleeding tendency. 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 He also appears to have had a history of myocardial infarction. PAST SURGICAL HISTORY: Significant for back surgery, right thoracentesis in the past and cholecystec july in 2011. FAMILY HISTORY: No family history of premature coronary artery disease. SOCIAL HISTORY: The patient denies tobacco use, alcohol use or recreational drug use. CODE STATUS: I discussed his code status. He is FULL CODE. Surrogate decision maker is his brother , Aroldo. ALLERGIES: No known drug allergies. CURRENT MEDICATIONS: Include Norvasc 10 mg daily, enteric-coated aspirin 81 mg daily, Dulcolax 5 mg daily, carbamazepine 200 mg 3 times a day, diltiazem CD 120 mg daily, ferrous gluconate 324 mg daily, Lasix 40 mg daily, lisinopril 10 mg at bedtime, Claritin 10 mg daily, metformin 1000 mg 2 times a da y, Protonix 40 mg daily, Actos 15 mg daily, rivaroxaban 20 mg daily, spironolactone 25 mg daily. PHYSICAL EXAMINATION: GENERAL: Mr. Bowman is awake and alert, not in acute distress. He is obese. VITAL SIGNS: Blood pressure is 153/67, pulse is 73, he is breathing at rate of 18, and saturating 94 % on room air. He is afebrile. EYES: No scleral icterus. He has conjunctival pallor. ENT: Moist mucosal membranes, no oropharyngeal erythema or exudates. NECK: Supple, nontender, normal range of movement. Trachea is midline, unable to assess jugular vei ns. RESPIRATORY: Accessory muscles of breathing are not active. Chest wall movements are symmetric bila terally. Lung examination reveals a few bibasilar crackles. CARDIOVASCULAR: S1 and S2 are heard, regular. LUNGS: Peripheral pulses palpable. No carotid bruit, no pericardial rub. ABDOMEN: Soft, nontender, bowel sounds are heard, no hepatomegaly, no splenomegaly, distention prese nt. NEUROLOGIC: Cranial nerves II through XII intact. EXTREMITIES: Left upper extremity in a contracted position. He has left lower extremity edema. Pow er is 5/5 in the right upper and lower extremities. MUSCULOSKELETAL: Extremities as described above. SKIN: No rashes or subcutaneous nodules. LYMPHATIC: No cervical lymphadenopathy. PSYCHIATRIC: Normal mood, normal affect. The patient is oriented to person and place, not to time. LABORATORY DATA: Mr. Huang labs and investigations were reviewed. I reviewed his electrocardiogram, which shows atrial fibrillation with controlled ventricular response. I also reviewed his chest x-r ay, which does not show any obvious infiltrates, although radiologist feels that there may be a left basilar atelectasis versus infiltrate. He has normal white count, hemoglobin 7.5, last known hemoglo bin 7.0 on 08/16/2017, elevated platelet count of 541,000, last known platelet count 517,000 on 08/16, decreased sodium of 135, normal potassium, normal creatinine of 0.66, normal total bilirubin, normal AST, normal ALT, normal alkaline phosphatase, decreased albumin of 3.0, elevated troponin I of 0.089 and elevated BNP of 298. ASSESSMENT AND PLAN: Mr. Bowman is a pleasant 81-year-old gentleman who was seen at [facility] on 08/19/2017. His problem list includes: 1. Chest pain: Given his significant cardiac risk factors, he will be admitted to the hospital for telemetry monitoring. Troponin will be rechecked. I am ordering a nuclear stress test for tomorrow. At this point in time, chest pain has resolved. We will add p.r.n. nitroglycerin for chest pain. 2. Diastolic congestive heart failure. Mr. Bowman' last echocardiogram from 07/2017 shows that he had left ventricular ejection fraction of 55-60% and grade 1/3 diastolic dysfunction. He appears to be in some degree of heart failure at this time. We will provide him with intravenous furosemide for th e next day or so and then switch back to oral furosemide. 3. Diabetes mellitus type 2. Continue home medications, start Accu-Cheks and insulin sliding scale. 4. Atrial fibrillation. Continue calcium channel gio and anticoagulation. 5. History of cerebrovascular accident, stable. 6. Hypertension: Monitor vital signs, titrate antihypertensives as needed. Many thanks for allowing me to participate in your patient's care. Please feel free to contact me wi th any questions or concerns. LEVEL OF RISK: High. LEVEL OF COMPLEXITY: High.
[2017-08-19 19:29] VITALS: BMI 38.7
[2017-08-19] MEDS ORDERED: Lisinopril 10 MG TAB PO SCH (21:00)
[2017-08-19 21:29] LABS: Troponin I 0.085 ng/mL (< 0.028)
[2017-08-19] MEDS: carBAMazepine 200 MG TAB PO SCH (21:43)
[2017-08-20 05:45] LABS: #Eosinphils 0.2 thou/uL (0.0-0.7); #Lymphocytes 1.1 thou/uL (1.20-3.40); #Monocytes 0.6 thou/uL (0.11-0.59); #Neutrophils 4.9 thou/uL (1.40-6.50); %Basophils 0.7 % (0.0-1.0); %Eosinophils 2.6 % (0.0-10.0); %Lymphocytes 15.6 % (21.0-51.0); %Monocytes 8.8 % (0.0-10.0); %Neutrophils 72.3 % (42.0-75.0); Hemoglobin 7.2 g/dL (14.0-18.0); Mean Corpuscular HGB CONC 29.6 g/dL (32.0-36.0); Mean Corpuscular Hemoglobin 23.9 pg (27.0-31.0); Mean Corpuscular Volume 80.8 fl (80.0-94.0); Mean Platelet Volume 7.5 fL (7.4-10.4); Platelet Count 559 thou/uL (130-400); RBC Distribution Width 20.1 % (11.5-14.5); White Blood Cell (WBC) Count 6.8 thou/uL (4.8-10.8)
[2017-08-20 05:59] LABS: Anion Gap 10 mmol/L (10-20); BUN (Urea Nitrogen) 6 mg/dL (8.4-25.7); Calc. Creatinine Clearance 153 mL/min (70-130); Calcium 8.3 mg/dL (7.8-10.44); Carbon Dioxide 32 mmol/L (23-31); Chloride 98 mmol/L (98-107); Estimated GFR-MDRD Greater than 90; Glucose 90 mg/dL (83-110); Potassium 3.6 mmol/L (3.5-5.1); Sodium 136 mmol/L (136-145)
[2017-08-20] MEDS ORDERED: metFORMIN XR 500 MG TAB PO SCH (08:00)
[2017-08-20] MEDS ORDERED: Amlodipine 10 MG TAB PO SCH (09:00)
[2017-08-20] MEDS ORDERED: Ferrous Gluconate 324 MG TAB PO SCH (09:00)
[2017-08-20] MEDS ORDERED: Rivaroxaban 10 MG TAB PO SCH (09:00)
[2017-08-20] MEDS ORDERED: Pioglitazone HCl 15 MG TAB PO SCH (09:00)
[2017-08-20] MEDS ORDERED: Spironolactone 25 MG TAB PO SCH (09:00)
[2017-08-20] MEDS ORDERED: Furosemide 40 MG TAB PO SCH (09:00)
[2017-08-20] MEDS: carBAMazepine 200 MG TAB PO SCH ×2 (09:35→15:54)
[2017-08-20] MEDS ORDERED: Multivit, Therapeutic 1 TAB PO SCH (10:00)
[2017-08-20] MEDS ORDERED: Folic Acid 1 MG TAB PO SCH (10:00)
[2017-08-20] MEDS ORDERED: Cyanocobalamin (Vitamin B-12) 1,000 MCG TAB PO SCH (10:00)
[2017-08-20] MEDS ORDERED: Iron Sucrose Complex 200 MG in Sodium Chloride 0.9% 250 ML 250 ML IVPB SCH (10:00)
[2017-08-20] MEDS ORDERED: Sodium Ferric Gluconate 250 MG, Admixture Fee 1 EACH in Sodium Chloride 0.9% 250 ML 250 ML IVPB SCH (10:00)
--- NOTE | 2017-08-20 11:36 | CON ---
DATE OF CONSULTATION: 08/20/2017 REASON FOR CONSULTATION: Chest pain. PRIMARY CARE PROVIDER: Scott Quezada M.D. HISTORY OF PRESENT ILLNESS: Mr. Bowman is an 81-year-old gentleman who was seen and evaluated one occa koko in the past. He has a history of chronic atrial fibrillation in addition to chronic anemia. He has been worked up for anemia recently. His initial hemoglobin during hospitalization over the last several months was 5.2. It has now been in the 7-8 range. He recently presented with chest pain. Describes the pain as mild. He states he mentioned it to his physical therapist. I was then decided to proceed to the emergency room. Pain lasted for 45 minute s. No associated ameliorating, exacerbating or precipitating factors present. PAST MEDICAL HISTORY: As above including diabetes mellitus, hypertension, CVA, depression, and gastr ic ulcer. PAST SURGICAL HISTORY: Back surgery and right thoracentesis. SOCIAL HISTORY: No current tobacco or alcohol use. FAMILY HISTORY: Negative for CAD. ALLERGIES: None. HOME MEDICATIONS: Include carbamazepine, Norvasc, aspirin, diltiazem, Claritin, Actos, Protonix, spi ronolactone, Xarelto, and metformin. REVIEW OF SYSTEMS: Ten point systems reviewed as above, otherwise negative. PHYSICAL EXAMINATION: GENERAL: Patient is a pleasant male who is in no acute distress. The patient appears his stated age . VITAL SIGNS: Blood pressure 114/57, pulse 71, temperature 86. NEUROLOGIC: The patient is alert and oriented times 3 with no focal neurologic deficits. HEENT: Sclerae without icterus. Mouth has moist mucous membranes with normal pallor. NECK: No JVD. Carotid upstroke brisk. No bruits bilaterally. LUNGS: Clear to auscultation with unlabored respirations. BACK: No scoliosis or kyphosis. CARDIAC: Regular rate and rhythm with normal S1 and S2. No S3 or S4 noted. No significant rubs, mu rmurs, thrills, or gallops noted throughout the precordium. PMI is not displaced. There is no serg ternal heave. ABDOMEN: Soft, nontender, nondistended. No peritoneal signs present. No hepatosplenomegaly. No ab normal striae. EXTREMITIES: 2+ femoral and 2+ dorsalis pedis pulses. No cyanosis, clubbing, or edema. SKIN: No gross abnormalities. PERTINENT LABORATORY DATA: Hemoglobin 7.2, creatinine 0.6. Peak troponin 0.098. BNP of 298. IMPRESSION: 1. Chest pain. 2. Profound anemia. 3. Previous gastric ulcer. 4. Chronic atrial fibrillation. RECOMMENDATIONS: Certainly a difficult situation. At this point, I do not feel the need to proceed with a noninvasive stress study or more aggressive means or measures given profound anemia with a hem oglobin of 7.2. At this point, we would recommend medical therapy. His symptoms are described as mi ld and were mentioned in passing to his physical therapist. His blood pressure appears stable. He i s currently on Cardizem and would change to Lopressor which will be better antianginal. He is also o n Norvasc and Cardizem at the same time which is not felt to be beneficial. Otherwise, I have no rec ommendations.
[2017-08-20 17:52] VITALS: BP 146/65; TEMP 97.8
[2017-08-20] MEDS ORDERED: Metoprolol Tartrate 25 MG TAB PO SCH (21:00)
--- NOTE | 2017-08-21 11:59 | DIS ---
DATE OF DISCHARGE: 08/20/2017 DISCHARGE DISPOSITION: [facility]. FOLLOWUP: 1. Follow up with primary care physician, Dr. Suarez in 1 week. 2. Follow up with Cardiology, Dr. Moncada, in 1-2 weeks. 3. Follow up with Dr. Ames for anemia. BRIEF HOSPITAL COURSE: The patient is an 81-year-old male with chronic atrial fibrillation on antico agulation, hypertension, and diabetes mellitus type 2, presented to the hospital with chest discomfor t. His troponins were in the indeterminate range with maximum troponin of 0.098. His hemoglobin and hematocrit on admission was 7.5 with a repeat was 7.2. Patient underwent recent EGD and colonoscopy for anemia. Dr. Moncada has discontinued anticoagulation due to severe anemia. Patient understan ds the risk of discontinuation of anticoagulation. He will follow up with Cardiology, Dr. Moncada as outpatient. An outpatient followup with Dr. Ames will be beneficial for anemia. He received 2 00 mg of Venofer during this hospital stay. DISCHARGE MEDICATIONS: 1. Metoprolol tartrate 25 mg b.i.d. 2. Cardizem has been discontinued. 3. Other home medications were resumed except for anticoagulation. Patient will continue aspirin. FINAL DIAGNOSES: 1. Chest discomfort, probably secondary to symptomatic anemia. 2. Elevated troponins, probably secondary to demand ischemia. 3. Chronic diastolic heart failure. 4. Diabetes mellitus type 2. 5. Chronic atrial fibrillation on anticoagulation. 6. History of cerebrovascular accident. 7. Hypertension. 8. Recent workup for anemia. 9. Obesity with body mass index of 38.6. Plan of care was discussed with the patient in detail. He stated understanding.
== END 2017-08-20 17:24 ==
LOC: ERS 13:06 → 2NO 17:45
PROVIDERS: ADMIT Internal Medicine; ATTEND Internal Medicine
DX: R07.89 Other chest pain (principal); R79.89 Other specified abnormal findings of blood chemistry; I11.0 Hypertensive heart disease with heart failure; I50.32 Chronic diastolic (congestive) heart failure; E11.9 Type 2 diabetes mellitus without complications; D64.9 Anemia, unspecified; I48.2 Chronic atrial fibrillation; F32.9 Major depressive disorder, single episode, unspecified; E66.9 Obesity, unspecified; Z68.38 Body mass index [BMI] 38.0-38.9, adult; Z79.84 Long term (current) use of oral hypoglycemic drugs; Z79.01 Long term (current) use of anticoagulants; Z79.899 Other long term (current) drug therapy; Z98.890 Other specified postprocedural states; Z86.73 Personal history of transient ischemic attack (TIA), and cerebral infarction without residual deficits
CPT/HCPCS: 71045; 80048; 80053; 82550; 82553; 82962 ×2; 83690; 83880; 84484 ×2; 85025 ×2; 93005; 93971; 94760 ×3; 96365; 96366; 99285; G0378; 36415; 36416; J2916; J7050

== ENCOUNTER 2017-09-15 14:56 | Inpatient (IN) | payer MEDICARE, MEDICAID ==
[2017-09-15] MEDS ORDERED: ISOVUE-370 76%-LOCM 1 ML ONE (15:16)
[2017-09-15 16:12] LABS: ALT (SGPT) 11 U/L (8-55); AST (SGOT) 45 U/L (5-34); Albumin 2.9 g/dL (3.4-4.8); Alkaline Phosphatase 159 U/L (40-150); Anion Gap 15 mmol/L (10-20); BUN (Urea Nitrogen) 8 mg/dL (8.4-25.7); Bilirubin, Total 0.4 mg/dL (0.2-1.2); Calc. Creatinine Clearance 0 mL/min (70-130); Calcium 8.5 mg/dL (7.8-10.44); Carbon Dioxide 24 mmol/L (23-31); Chloride 103 mmol/L (98-107); Estimated GFR-MDRD Greater than 90; Globulin 4.5 g/dL (2.4-3.5); Glucose 78 mg/dL (83-110); Potassium 4.7 mmol/L (3.5-5.1); Protein, Total 7.4 g/dL (5.8-8.1); Sodium 137 mmol/L (136-145)
[2017-09-15 16:15] LABS: Hemoglobin 9.3 g/dL (14.0-18.0); Mean Corpuscular HGB CONC 27.6 g/dL (32.0-36.0); Mean Corpuscular Hemoglobin 23.8 pg (27.0-31.0); Mean Corpuscular Volume 86.2 fl (80.0-94.0); Mean Platelet Volume 7.9 fL (7.4-10.4); Platelet Count 420 thou/uL (130-400); RBC Distribution Width 21.8 % (11.5-14.5); Red Blood Cell (RBC) Count 3.92 mill/uL (4.70-6.10); White Blood Cell (WBC) Count 15.2 thou/uL (4.8-10.8)
[2017-09-15 16:16] LABS: CKMB 2.8 ng/mL (0-6.6); Troponin I 0.068 ng/mL (< 0.028)
[2017-09-15 16:39] LABS: Anisocytosis SLIGHT = 6-15 cells (100X) (0-5/hpf); Band 13 % (5-11); Hypochromia SLIGHT = 6-15 cells (100X) (0-5/hpf); Lymphocytes 10 % (21-51); MDiff Complete? YES; Metamyelocyte 2 % (0-0); Monocytes 2 % (0-10); Neutrophil 73 % (42-75); PLT Morphology Comment Appears Increased; Polychromasia SLIGHT = 2-3 cells (100X) (0-2/hpf)
--- NOTE | 2017-09-15 17:15 | RAD ---
SINGLE VIEW OF THE CHEST: Comparison: 08-19-17 History: Chest pain. FINDINGS: Single view of the chest shows an enlarged but stable cardiomediastinal silhouette. Atelectasis is se en. There is no evidence of consolidation, mass, or pleural effusion. IMPRESSION: Cardiomegaly without evidence of acute cardiopulmonary disease. POS: [facility]
[2017-09-15 17:21] LABS: INR-International Normal Ratio 1.1; Prothrombin Time 13.9 SEC (12.0-14.7)
[2017-09-15 17:23] LABS: PTT 17.2 SEC (22.9-36.1)
[2017-09-15 17:36] LABS: D-Dimer Test 7.54 *mcg/mL (0.27-0.43)
[2017-09-15 18:45] LABS: Bilirubin Negative (Negative); Blood, Urine Negative (Negative); Clarity CLEAR (Clear); Glucose, Urine (Dipstick) Negative (Negative); Leukocyte Negative (Negative); Nitrite Negative (Negative); Protein, Urine (Dipstick) Negative (Neg-Trace); Specific Gravity, Urine 1.019 (1.002-1.036); Urobilinogen 0.2 mg/dL (0.2-1.0); pH, Urine 5.5 (5.0-9.0)
[2017-09-15] MEDS ORDERED: Furosemide 40 MG/4 ML VIAL ONE (18:49)
[2017-09-15 19:37] LABS: Troponin I 0.077 ng/mL (< 0.028)
[2017-09-15] MEDS ORDERED: Acetaminophen 650 MG Suppository PR PRN (19:41)
[2017-09-15] MEDS ORDERED: Acetaminophen 325 MG TAB PO PRN (19:41)
[2017-09-15] MEDS ORDERED: Bisacodyl 5 MG TAB PO PRN (19:41)
[2017-09-15] MEDS ORDERED: HumaLOG 300 UNITS/3 ML VIAL SC PRN (19:44)
[2017-09-15] MEDS ORDERED: Dextrose 50% Abboject 50 ML SYRINGE SLOW IVP PRN (19:44)
[2017-09-15] MEDS ORDERED: Dextrose 5% in Water 1,000 ML IV PRN (19:44)
--- NOTE | 2017-09-15 19:48 | CT ---
CT ANGIO OF CHEST PERFORMED WITH INTRAVENOUS CONTRAST ENHANCEMENT WITH 3D RECONSTRUCTIONS: 09/15/17 HISTORY: Shortness of breath, hypoxia. There is elevation to the left hemidiaphragm. There is a very small right pleural effusion and a mild left pleural effusion. There is left lower lobe parenchymal change with air bronchograms. This may r epresent chronic atelectatic change related to the elevated diaphragm. The thoracic aorta is normal in caliber. There is fair pulmonary artery opacification. Peripheral emb pelon are not excluded on the basis of this exam but no CT evidence for pulmonary embolus. The visualized liver parenchyma is unremarkable. The gallbladder appears to have been removed. IMPRESSION: 1. Small bilateral pleural effusions, left larger than right. 2. Left lower lobe parenchymal changes which could represent chronic atelectatic change given th e elevated hemidiaphragm. 3. No CT evidence for pulmonary embolus. POS: [facility]
--- NOTE | 2017-09-15 20:44 | HP ---
PRIMARY CARE PROVIDER: Raza Suarez M.D. CHIEF COMPLAINT: Shortness of breath. HISTORY OF PRESENT ILLNESS: Mr. Bowman is a pleasant 81-year-old gentleman who was seen at [facility] on 09/15/2017 after he was sent to the emergency room by [facility]. He was hospitalized at this facility from 08/19/2017 to 08/20/2017 for chest pain, probably secondary to symptomatic anemia. During that hospitalization, his anticoagulation was discontinued. He followed up with [facility] as outpatient. He received 200 mg of Venofer during his last hospitalization. He went for iron infusion today. A few minutes after initiation of iron infusion, he developed back ache and felt short of breath. He reports that the shortness of breath lasted a few minutes. He den ies any fever, cough or abdominal pain. He denies any urinary symptoms. He denies any nausea, vomit ing or diarrhea. He denies any chest pain. He did receive Benadryl and Pepcid prior to transfer to the emergency room. REVIEW OF SYSTEMS: All other systems reviewed and found to be negative. PAST MEDICAL HISTORY: Diabetes mellitus, type 2; hypertension; paroxysmal atrial fibrillation; cereb rovascular disease, status post stroke with left-sided hemiplegia; depression; gastric ulcers; and my ocardial infarction. PAST SURGICAL HISTORY: Back surgery, right thoracentesis in the past and cholecystectomy. FAMILY HISTORY: No family history of premature coronary artery disease. SOCIAL HISTORY: The patient denies tobacco use, alcohol use or recreational drug use. CODE STATUS: He is FULL CODE. Surrogate decision maker is his brother, Aroldo. ALLERGIES: No known drug allergies. CURRENT MEDICATIONS: Omeprazole 40 mg daily, lisinopril 10 mg daily, Norvasc 10 mg in the morning, A ctos 15 mg daily, Cordarone 100 mg daily, Lasix 40 mg orally daily, spironolactone 25 mg daily, destiny us gluconate 324 mg daily, metformin 1000 mg 2 times a day, rivaroxaban 20 mg daily. It is unclear w hether he is still taking rivaroxaban, since it was discontinued during his last hospitalization. PHYSICAL EXAMINATION: GENERAL: On examination, Mr. Bowman is awake and alert. He is obese, not in acute distress. VITAL SIGNS: Blood pressure is 115/76, pulse is 92, he is breathing at rate of 26 and saturating 98% on 2 liters of oxygen. He is afebrile. EYES: No scleral icterus. No conjunctival pallor. ENT: No oropharyngeal erythema or exudates, moist mucosal membranes. NECK: Supple, nontender, trachea is midline. I could not assess him for jugular venous distention. RESPIRATORY: Accessory muscles of breathing are not active. Chest wall movement symmetric bilateral ly. Lungs examination reveals bibasilar crackles. CARDIOVASCULAR: S1, S2 are heard, regular. Peripheral pulses palpable. No carotid bruit, no perica rdial rub. ABDOMEN: Soft, nontender, bowel sounds heard, no hepatomegaly, no splenomegaly. He has abdominal distention. NEUROLOGIC: Cranial nerves II-XII intact, deep tendon reflexes 2+. MUSCULOSKELETAL: Left upper extremity in a contracted position, bilateral lower extremity edema pres ent. Power is 5/5 in right upper and lower extremities. SKIN: No rashes or subcutaneous nodules. LYMPHATIC: No cervical lymphadenopathy. PSYCHIATRIC: Normal mood, normal affect, the patient is oriented to person and place, but not to [place] e. IMAGING AND LABORATORY DATA: Mr. Bowman's labs and investigations were reviewed. I reviewed his elect rocardiogram, which shows atrial fibrillation, no ST changes to suggest an acute coronary syndrome. I also reviewed his chest x-ray, which does not show any pulmonary infiltrates. He also had a CT ang iogram of the chest, emergency room physician reports that it was negative for pulmonary embolism. He has leukocytosis with 15,200 white cells, of which 73% are neutrophils and 13% are bands, hemoglob in is 9.3, platelet count 420,000, INR 1.1, D-dimer 7.54, normal electrolytes, normal creatinine, frankie vated AST of 45, normal ALT, elevated alkaline phosphatase of 159, indeterminate troponin I of 0.068, elevated BNP of 446 and decreased albumin of 2.9. Urinalysis is negative. ASSESSMENT AND PLAN: Mr. Bowman is a pleasant 81-year-old gentleman who was seen at [facility] on 09/15/2017. His problem list includes: 1. Shortness of breath: Etiology is unclear. It happened when he was receiving intravenous iron, c ould be secondary to reaction to the medication. However, he also appears to have congestive heart f ailure exacerbation. We will admit the patient to the hospital for further management. 2. Congestive heart failure exacerbation: The patient will be treated with intravenous furosemide. If no significant improvement, may need a Cardiology consult. 3. Leukocytosis: No clear source of infection. He does have mild bandemia. We will recheck a CBC. We will also send out blood cultures to rule out bloodstream infection. At this point in time, no evidence of infection in the lungs or urine. 4. Diabetes mellitus, type 2: Start Accu-Cheks, insulin sliding scale. 5. Anemia: We will need to clarify whether patient is still taking rivaroxaban. 6. History of cerebrovascular accident: Stable. 7. History of gastric ulcer: Continue proton-pump inhibitor. 8. Hypertension: Monitor vital signs, titrate antihypertensives as needed. Many thanks for allowing me to participate in your patient's care. Please feel free to contact me wi th any questions or concerns. LEVEL OF RISK: High. LEVEL OF COMPLEXITY: High.
[2017-09-15 22:48] LABS: Hemoglobin 7.9 g/dL (14.0-18.0); MDiff Complete? YES; Mean Corpuscular HGB CONC 28.1 g/dL (32.0-36.0); Mean Corpuscular Hemoglobin 23.5 pg (27.0-31.0); Mean Corpuscular Volume 83.7 fl (80.0-94.0); Mean Platelet Volume 7.9 fL (7.4-10.4); Platelet Count 341 thou/uL (130-400); RBC Distribution Width 21.6 % (11.5-14.5); Red Blood Cell (RBC) Count 3.36 mill/uL (4.70-6.10); White Blood Cell (WBC) Count 23.9 thou/uL (4.8-10.8)
[2017-09-15 22:49] LABS: Anisocytosis SLIGHT = 6-15 cells (100X) (0-5/hpf); Band 24 % (5-11); Hypochromia SLIGHT = 6-15 cells (100X) (0-5/hpf); Lymphocytes 5 % (21-51); Monocytes 3 % (0-10); Neutrophil 68 % (42-75); Nucleated RBC 1 % (0); PLT Morphology Comment Appears Adequate; Polychromasia SLIGHT = 2-3 cells (100X) (0-2/hpf); Target Cells SLIGHT = 2-5 cells (100X) (0-1/hpf)
[2017-09-15 22:53] LABS: Troponin I 0.063 ng/mL (< 0.028)
--- NOTE | 2017-09-15 23:23 | PDOC.EVN ---
Event Note - Event Note Event Note: Was told to follow up on CBC ordered for 215 with troponins. Due to elevated WBC with Bandemia - will start Vancomycin and Zosyn per recommendation by Attending MD.
[2017-09-16] MEDS: Piperacillin/Tazobactam 3.375 GM in Sodium Chloride 0.9% 100 ML IVPB SCH ×4 (01:36→17:11)
[2017-09-16] MEDS: Vancomycin HCl 1.75 GM in Sodium Chloride 0.9% 500 ML IVPB SCH ×2 (02:22→13:18)
[2017-09-16 05:15] LABS: ALT (SGPT) 10 U/L (8-55); AST (SGOT) 26 U/L (5-34); Albumin 2.8 g/dL (3.4-4.8); Alkaline Phosphatase 120 U/L (40-150); Anion Gap 12 mmol/L (10-20); BUN (Urea Nitrogen) 8 mg/dL (8.4-25.7); Bilirubin, Direct 0.2 mg/dL (0.1-0.3); Bilirubin, Total 0.3 mg/dL (0.2-1.2); Calc. Creatinine Clearance 128 mL/min (70-130); Carbon Dioxide 26 mmol/L (23-31); Chloride 103 mmol/L (98-107); Estimated GFR-MDRD Greater than 90; Glucose 102 mg/dL (83-110); Protein, Total 6.4 g/dL (5.8-8.1); Sodium 137 mmol/L (136-145)
[2017-09-16 05:48] LABS: Anisocytosis SLIGHT = 6-15 cells (100X) (0-5/hpf); Band 14 % (5-11); Hemoglobin 7.5 g/dL (14.0-18.0); Lymphocytes 5 % (21-51); MDiff Complete? YES; Mean Corpuscular HGB CONC 28.7 g/dL (32.0-36.0); Mean Corpuscular Hemoglobin 24.2 pg (27.0-31.0); Mean Corpuscular Volume 84.1 fl (80.0-94.0); Mean Platelet Volume 8.3 fL (7.4-10.4); Monocytes 4 % (0-10); Neutrophil 76 % (42-75); Platelet Count 317 thou/uL (130-400); RBC Distribution Width 21.6 % (11.5-14.5); Red Blood Cell (RBC) Count 3.09 mill/uL (4.70-6.10); Target Cells SLIGHT = 2-5 cells (100X) (0-1/hpf); White Blood Cell (WBC) Count 19.3 thou/uL (4.8-10.8)
[2017-09-16] MEDS: Furosemide 40 MG/4 ML VIAL SLOW IVP SCH ×2 (06:22→13:17)
[2017-09-16] MEDS ORDERED: Enoxaparin Sodium 40 MG/0.4 ML SYRINGE SC SCH (09:00)
--- NOTE | 2017-09-16 10:36 | PDOC.PN ---
- Subjective Encounter Start Date: 09/16/17 Encounter Start Time: 07:40 - Objective Resuscitation Status: Resuscitation Status FULL:Full Resuscitation MAR Reviewed: Yes Vital Signs & Weight: Vital Signs (12 hours) Temp Pulse Resp BP BP Pulse Ox 09/16/17 08:37 98.2 F 76 20 97/52 L 92 L 09/16/17 03:47 99.1 F 84 22 H 124/58 L 98 09/16/17 00:00 99.4 F 86 20 113/54 L 97 Weight Weight 237 lb 6 oz Result Diagrams: 09/16/17 03:55 09/16/17 03:55 Additional Labs: Accuchecks 09/16/17 09/15/17 06:21 20:18 POC Glucose 126 H 124 H EKG Reviewed by me: Yes (Tele: renetta haley) Phys Exam - Physical Examination Obese HEENT: moist MMs, sclera anicteric, oral pharynx no lesions, 2+ tonsils Neck: no nodes, supple, full ROM JVD Respiratory: no wheezing, no rhonchi Ilya crackles Cardiovascular: no rub, irregular S1, S2 Gastrointestinal: soft, non-tender, no distention, positive bowel sounds Musculoskeletal: edema present Neurological: moves all 4 limbs Psychiatric: normal affect Deviation from normal: Oriented to person and place, not to time Dx/Plan (1) Acute on chronic diastolic (congestive) heart failure Code(s): I50.33 - ACUTE ON CHRONIC DIASTOLIC (CONGESTIVE) HEART FAILURE Status : Acute Comment: continue IV furosemide (2) Leucocytosis Code(s): D72.829 - ELEVATED WHITE BLOOD CELL COUNT, UNSPECIFIED Status: Acute Qualifiers: Leukocytosis type: bandemia Qualified Code(s): D72.825 - Bandemia Comment: Pt started on empiric antibiotics, no clear source of infection, await blood cultures (3) Diabetes mellitus type 2 Code(s): E11.9 - TYPE 2 DIABETES MELLITUS WITHOUT COMPLICATIONS Status: Active Comment: ISS, continue Actos 15mg daily (4) Anemia Code(s): D64.9 - ANEMIA, UNSPECIFIED Status: Acute Comment: stable (5) Chronic atrial fibrillation Code(s): I48.2 - CHRONIC ATRIAL FIBRILLATION Status: Chronic Comment: Rate controlled, stable. (6) Hypertension Code(s): I10 - ESSENTIAL (PRIMARY) HYPERTENSION Status: Chronic Qualifiers: Hypertension type: essential hypertension Qualified Code(s): I10 - Essential (primary) hypertension Comment: Monitor vital signs, titrate antihypertensives as needed - Plan * . Review of Systems - Review of Systems Respiratory: negative: Cough, Shortness of Breath, SOB with Excertion, Pleuritic Pain, Wheezing Cardiovascular: negative: chest pain, palpitations, orthopnea, paroxysmal nocturnal dyspnea, edema, light headedness Gastrointestinal: negative: Nausea, Vomiting, Abdominal Pain, Diarrhea, Constipation, Melena, Hematochezia Genitourinary: negative: Dysuria, Frequency, Incontinence, Hematuria, Retention Skin: negative: Rash, Lesions, Flex, Bruising - Medications/Allergies Allergies/Adverse Reactions: Allergies Allergy/AdvReac Type Severity Reaction Status Date / Time No Known Allergies Allergy Verified 07/29/17 22:30 Medications: Current Medications Acetaminophen (Tylenol) 650 mg PO Q4H PRN PRN Reason: Headache/Fever or Pain Acetaminophen (Tylenol) 650 mg WA Q4H PRN PRN Reason: Headache/Fever or Pain Bisacodyl (Dulcolax) 10 mg PO DAILYPRN PRN PRN Reason: Constipation Dextrose/Water (Dextrose 50%) 25 gm SLOW IVP PRN PRN PRN Reason: Hypoglycemia Enoxaparin Sodium (Lovenox) 40 mg SC 0900 [facility] Last Admin: 09/16/17 08:42 Dose: 40 mg Furosemide (Lasix) 40 mg SLOW IVP 0600,1400 [facility] Last Admin: 09/16/17 06:22 Dose: 40 mg Glucagon (Glucagon) 1 mg IM PRN PRN PRN Reason: Hypoglycemia Dextrose/Water (D5w) 1,000 mls @ 0 mls/hr IV .Q0M PRN; As Directed PRN Reason: Hypoglycemia Piperacillin Sod/Tazobactam (Sod 3.375 gm/ Sodium Chloride) 100 mls @ 200 mls/ hr IVPB Q6HR [facility] Last Admin: 09/16/17 06:22 Dose: 100 mls Vancomycin HCl 1.75 gm/ Sodium (Chloride) 500 mls @ 200 mls/hr IVPB 0100,1300 [facility] Last Admin: 09/16/17 02:22 Dose: 500 mls Insulin Human Lispro (Humalog) 0 units SC .MILD SLIDING SCALE PRN PRN Reason: Mild Correctional Scale Miscellaneous Medication (Pharmacy To Dose) 1 each IVPB ONE PRN PRN Reason: Pharmacy to dose Stop: 09/25/17 23:22
--- NOTE | 2017-09-16 11:17 | ULT ---
BILATERAL LOWER EXTREMITY VENOUS ULTRASOUND WITH DOPPLER: Date: 09/16/17 HISTORY: Chronic lower extremity edema. COMPARISON: None. TECHNIQUE: Hurt scale, color flow, Doppler imaging, and spectral waveform analysis performed of the left and rig ht lower extremity deep venous system. FINDINGS: Bilaterally, there is compressibility, presence of flow, and augmentation in the common femoral, femo ral vein, and popliteal vein. There is flow in bilateral greater saphenous veins, profunda veins, and posterior tibial veins. Mild edema in the left lower extremity is noted. Incidental bilateral inguinal lymph nodes are identi fied. Right inguinal lymph node measures 2.5 cm in maximum dimension. Left inguinal lymph node measur es 1.9 cm in maximum dimension. IMPRESSION: 1. Left lower extremity edema. 2. No evidence of thrombus in the left or right lower extremity deep venous system. POS: KOMAL
[2017-09-16] MEDS ORDERED: traMADol HCl 50 MG TAB PO PRN (11:32)
[2017-09-16] MEDS ORDERED: Bisacodyl 5 MG TAB PO PRN (11:32)
[2017-09-16] MEDS ORDERED: Acetaminophen 325 MG TAB PO PRN (11:32)
[2017-09-16] MEDS ORDERED: Loratadine 10 MG TAB PO PRN (11:32)
[2017-09-16] MEDS ORDERED: Acetaminophen/Codeine 30-300mg Tablet PO PRN (11:32)
[2017-09-16] MEDS: carBAMazepine 200 MG TAB PO SCH ×2 (14:37→21:28)
[2017-09-16] MEDS: Rivaroxaban 10 MG TAB PO SCH (17:11)
[2017-09-16] MEDS: metFORMIN XR 500 MG TAB PO SCH (17:11)
[2017-09-16] MEDS: Insulin Glargine 18 UNITS in Pre-Filled Syringe 1 EACH SC SCH (21:28)
[2017-09-16] MEDS: Lisinopril 10 MG TAB PO SCH (21:28)
[2017-09-17] MEDS: Piperacillin/Tazobactam 3.375 GM in Sodium Chloride 0.9% 100 ML IVPB SCH ×4 (00:49→17:52)
[2017-09-17] MEDS: Vancomycin HCl 1.75 GM in Sodium Chloride 0.9% 500 ML IVPB SCH ×2 (01:31→13:53)
[2017-09-17] MEDS: Furosemide 40 MG/4 ML VIAL SLOW IVP SCH ×2 (05:18→14:15)
[2017-09-17 05:19] LABS: Anion Gap 11 mmol/L (10-20); BUN (Urea Nitrogen) 7 mg/dL (8.4-25.7); Calc. Creatinine Clearance 125 mL/min (70-130); Calcium 8.1 mg/dL (7.8-10.44); Carbon Dioxide 29 mmol/L (23-31); Chloride 102 mmol/L (98-107); Estimated GFR-MDRD Greater than 90; Glucose 90 mg/dL (83-110); Potassium 3.5 mmol/L (3.5-5.1); Sodium 138 mmol/L (136-145)
[2017-09-17 05:41] LABS: #Basophils 0.1 thou/uL (0.0-0.2); #Eosinphils 0.3 thou/uL (0.0-0.7); #Lymphocytes 1.2 thou/uL (1.20-3.40); #Monocytes 0.7 thou/uL (0.11-0.59); #Neutrophils 7.4 thou/uL (1.40-6.50); %Eosinophils 3.6 % (0.0-10.0); %Lymphocytes 12.1 % (21.0-51.0); %Monocytes 7.3 % (0.0-10.0); %Neutrophils 76.1 % (42.0-75.0); Hemoglobin 7.4 g/dL (14.0-18.0); Mean Corpuscular HGB CONC 28.2 g/dL (32.0-36.0); Mean Corpuscular Hemoglobin 23.7 pg (27.0-31.0); Mean Platelet Volume 8.3 fL (7.4-10.4); Platelet Count 307 thou/uL (130-400); RBC Distribution Width 21.2 % (11.5-14.5); Red Blood Cell (RBC) Count 3.11 mill/uL (4.70-6.10); White Blood Cell (WBC) Count 9.7 thou/uL (4.8-10.8)
[2017-09-17 05:42] LABS: Anisocytosis SLIGHT = 6-15 cells (100X) (0-5/hpf); Hypochromia SLIGHT = 6-15 cells (100X) (0-5/hpf); MDiff Complete? YES
[2017-09-17] MEDS: metFORMIN XR 500 MG TAB PO SCH ×2 (08:56→17:31)
[2017-09-17] MEDS: Ferrous Gluconate 324 MG TAB PO SCH (08:57)
[2017-09-17] MEDS: Amlodipine 10 MG TAB PO SCH (08:57)
[2017-09-17] MEDS: Diltiazem HCl SR 60 mg Capsule PO SCH (08:57)
[2017-09-17] MEDS: Furosemide 40 MG TAB PO SCH (08:57)
[2017-09-17] MEDS: Amiodarone 200 MG TAB PO SCH (08:57)
[2017-09-17] MEDS: Multivitamin W/ Minerals 1 TAB PO SCH (08:57)
[2017-09-17] MEDS: carBAMazepine 200 MG TAB PO SCH ×3 (08:57→21:09)
[2017-09-17] MEDS: Insulin Glargine 18 UNITS in Pre-Filled Syringe 1 EACH SC SCH ×2 (08:58→21:11)
[2017-09-17] MEDS: Pioglitazone HCl 15 MG TAB PO SCH (08:58)
[2017-09-17] MEDS: Spironolactone 25 MG TAB PO SCH (08:58)
[2017-09-17 13:25] LABS: Vancomycin, Trough 18.7 ug/mL
--- NOTE | 2017-09-17 14:38 | PDOC.PN ---
- Subjective Encounter Start Date: 09/17/17 Encounter Start Time: 07:20 Pt seen for followup re: CHF exacerbation. Reports feeling well, no chest pain or shortness of breath. - Objective Resuscitation Status: Resuscitation Status FULL:Full Resuscitation MAR Reviewed: Yes Vital Signs & Weight: Vital Signs (12 hours) Temp Pulse Resp BP Pulse Ox 09/17/17 11:42 98.2 F 89 18 143/64 H 98 09/17/17 08:00 98 F 86 18 132/59 L 100 09/17/17 04:00 98.3 F 66 14 119/60 100 Weight Admit Weight 240 lb 6 oz Weight 241 lb I&O: 09/16/17 09/17/17 09/18/17 06:59 06:59 06:59 Intake Total 3020 Balance 3020 Result Diagrams: 09/17/17 03:49 09/17/17 03:49 Additional Labs: Accuchecks 09/16/17 09/16/17 20:22 17:17 POC Glucose 128 H 125 H EKG Reviewed by me: Yes (Tele: renetta haley) Phys Exam - Physical Examination Obesity HEENT: moist MMs, sclera anicteric, oral pharynx no lesions, 2+ tonsils Neck: supple, full ROM Respiratory: no wheezing, no rhonchi Ilya crackles Cardiovascular: no rub, irregular S1, S2 Gastrointestinal: soft, non-tender, no distention, positive bowel sounds Musculoskeletal: edema present Neurological: moves all 4 limbs Psychiatric: normal affect Deviation from normal: Oriented to person, place, not to time Dx/Plan (1) Acute on chronic diastolic (congestive) heart failure Code(s): I50.33 - ACUTE ON CHRONIC DIASTOLIC (CONGESTIVE) HEART FAILURE Status : Acute Comment: continue IV furosemide (2) Diabetes mellitus type 2 Code(s): E11.9 - TYPE 2 DIABETES MELLITUS WITHOUT COMPLICATIONS Status: Chronic Comment: continue insulin sliding scale and accuchecks (3) Anemia Code(s): D64.9 - ANEMIA, UNSPECIFIED Status: Suspected Comment: stable (4) Chronic atrial fibrillation Code(s): I48.2 - CHRONIC ATRIAL FIBRILLATION Status: Chronic Comment: Stable (5) Hypertension Code(s): I10 - ESSENTIAL (PRIMARY) HYPERTENSION Status: Chronic Qualifiers: Hypertension type: essential hypertension Qualified Code(s): I10 - Essential (primary) hypertension Comment: titrate antihypertensives as needed (6) Leucocytosis Code(s): D72.829 - ELEVATED WHITE BLOOD CELL COUNT, UNSPECIFIED Status: Resolved Qualifiers: Leukocytosis type: bandemia Qualified Code(s): D72.825 - Bandemia Comment: no clear source of infection, await final blood cultures, continue empiric antibiotics - Plan * . Review of Systems - Review of Systems Constitutional: negative: fever, chills, sweats, weakness, malaise Respiratory: negative: Cough, Shortness of Breath, SOB with Excertion, Pleuritic Pain, Wheezing Cardiovascular: negative: chest pain, palpitations, orthopnea, paroxysmal nocturnal dyspnea, edema, light headedness Gastrointestinal: negative: Nausea, Vomiting, Abdominal Pain, Diarrhea, Constipation, Melena, Hematochezia Skin: negative: Rash, Lesions, Flex, Bruising Neurological: negative: Weakness, Numbness, Incoordination, Change in Speech, Confusion, Seizures - Medications/Allergies Allergies/Adverse Reactions: Allergies Allergy/AdvReac Type Severity Reaction Status Date / Time No Known Allergies Allergy Verified 07/29/17 22:30 Medications: Current Medications Acetaminophen (Tylenol) 650 mg [place] Q4H PRN PRN Reason: Headache/Fever or Pain Acetaminophen (Tylenol) 325 mg PO Q6HR PRN PRN Reason: Pain Acetaminophen/Codeine Phosphate (Tylenol #3) 1 tab PO Q6HR PRN PRN Reason: Moderate Pain (4-6) Amiodarone HCl (Cordarone) 100 mg PO DAILY [facility] Last Admin: 09/17/17 08:57 Dose: 100 mg Amlodipine Besylate (Norvasc) 10 mg PO DAILY [facility] Last Admin: 09/17/17 08:57 Dose: 10 mg Aspirin (Aspirin Chewable) 81 mg PO DAILY [facility] Last Admin: 09/17/17 08:57 Dose: 81 mg Bisacodyl (Dulcolax) 5 mg PO DAILY PRN PRN Reason: Constipation Carbamazepine (Tegretol) 200 mg PO TID [facility] Last Admin: 09/17/17 14:15 Dose: 200 mg Dextrose/Water (Dextrose 50%) 25 gm SLOW IVP PRN PRN PRN Reason: Hypoglycemia Diltiazem HCl (Cardizem Sr) 120 mg PO DAILY [facility] Last Admin: 09/17/17 08:57 Dose: 120 mg Ferrous Gluconate (Fergon) 324 mg PO DAILY [facility] Last Admin: 09/17/17 08:57 Dose: 324 mg Furosemide (Lasix) 40 mg SLOW IVP 0600,1400 [facility] Last Admin: 09/17/17 14:15 Dose: 40 mg Furosemide (Lasix) 40 mg PO DAILY [facility] Last Admin: 09/17/17 08:57 Dose: 40 mg Glucagon (Glucagon) 1 mg IM PRN PRN PRN Reason: Hypoglycemia Dextrose/Water (D5w) 1,000 mls @ 0 mls/hr IV .Q0M PRN; As Directed PRN Reason: Hypoglycemia Piperacillin Sod/Tazobactam (Sod 3.375 gm/ Sodium Chloride) 100 mls @ 200 mls/ hr IVPB Q6HR [facility] Last Admin: 09/17/17 12:39 Dose: 100 mls Vancomycin HCl 1.75 gm/ Sodium (Chloride) 500 mls @ 200 mls/hr IVPB 0100,1300 [facility] Last Admin: 09/17/17 13:53 Dose: 500 mls Insulin Glargine 18 units/ (Miscellaneous Medication) 0.18 mls @ 0 mls/hr SC BID [facility] Last Admin: 09/17/17 08:58 Dose: Not Given Insulin Human Lispro (Humalog) 0 units SC .MILD SLIDING SCALE PRN PRN Reason: Mild Correctional Scale Iron/Minerals/Multivitamins (Theragran M) 1 tab PO DAILY [facility] Last Admin: 09/17/17 08:57 Dose: 1 tab Lisinopril (Zestril) 10 mg PO HS [facility] Last Admin: 09/16/17 21:28 Dose: 10 mg Loratadine (Claritin) 10 mg PO DAILY PRN PRN Reason: Allergies Metformin HCl (Glucophage Xr) 1,000 mg PO BID-WM [facility] Last Admin: 09/17/17 08:56 Dose: 1,000 mg Miscellaneous Medication (Pharmacy To Dose) 1 each IVPB ONE PRN PRN Reason: Pharmacy to dose Stop: 09/25/17 23:22 Pantoprazole Sodium (Protonix) 40 mg PO DAILY [facility] Last Admin: 09/17/17 08:57 Dose: 40 mg Pioglitazone HCl (Actos) 15 mg PO DAILY [facility] Last Admin: 09/17/17 08:58 Dose: 15 mg Rivaroxaban (Xarelto) 20 mg PO 1700 [facility] Last Admin: 09/16/17 17:11 Dose: 20 mg Spironolactone (Aldactone) 25 mg PO DAILY [facility] Last Admin: 09/17/17 08:58 Dose: 25 mg Tramadol HCl (Ultram) 50 mg PO Q6HR PRN PRN Reason: Pain
[2017-09-17] MEDS: Rivaroxaban 10 MG TAB PO SCH (17:31)
[2017-09-17] MEDS: Lisinopril 10 MG TAB PO SCH (21:09)
[2017-09-18] MEDS: Piperacillin/Tazobactam 3.375 GM in Sodium Chloride 0.9% 100 ML IVPB SCH ×5 (01:16→23:48)
[2017-09-18] MEDS: Vancomycin HCl 1.75 GM in Sodium Chloride 0.9% 500 ML IVPB SCH ×2 (01:48→13:36)
[2017-09-18 05:11] LABS: #Eosinphils 0.3 thou/uL (0.0-0.7); #Monocytes 0.7 thou/uL (0.11-0.59); #Neutrophils 6.1 thou/uL (1.40-6.50); %Basophils 0.6 % (0.0-1.0); %Eosinophils 3.6 % (0.0-10.0); %Lymphocytes 12.7 % (21.0-51.0); %Monocytes 8.9 % (0.0-10.0); %Neutrophils 74.2 % (42.0-75.0); Hemoglobin 7.5 g/dL (14.0-18.0); Mean Corpuscular HGB CONC 28.6 g/dL (32.0-36.0); Mean Corpuscular Hemoglobin 24.1 pg (27.0-31.0); Mean Corpuscular Volume 84.5 fl (80.0-94.0); Mean Platelet Volume 8.2 fL (7.4-10.4); Platelet Count 285 thou/uL (130-400); RBC Distribution Width 21.4 % (11.5-14.5); Red Blood Cell (RBC) Count 3.09 mill/uL (4.70-6.10); White Blood Cell (WBC) Count 8.2 thou/uL (4.8-10.8)
[2017-09-18 05:12] LABS: Anion Gap 15 mmol/L (10-20); BUN (Urea Nitrogen) 6 mg/dL (8.4-25.7); Calc. Creatinine Clearance 137 mL/min (70-130); Calcium 7.9 mg/dL (7.8-10.44); Carbon Dioxide 25 mmol/L (23-31); Chloride 102 mmol/L (98-107); Estimated GFR-MDRD Greater than 90; Glucose 86 mg/dL (83-110); Potassium 3.8 mmol/L (3.5-5.1); Sodium 138 mmol/L (136-145)
[2017-09-18] MEDS: Furosemide 40 MG/4 ML VIAL SLOW IVP SCH ×2 (06:13→15:20)
[2017-09-18] MEDS: Diltiazem HCl SR 60 mg Capsule PO SCH (08:46)
[2017-09-18] MEDS: Pioglitazone HCl 15 MG TAB PO SCH (08:47)
[2017-09-18] MEDS: Ferrous Gluconate 324 MG TAB PO SCH (08:47)
[2017-09-18] MEDS: Amlodipine 10 MG TAB PO SCH (08:47)
[2017-09-18] MEDS: Amiodarone 200 MG TAB PO SCH (08:47)
[2017-09-18] MEDS: Multivitamin W/ Minerals 1 TAB PO SCH (08:47)
[2017-09-18] MEDS: metFORMIN XR 500 MG TAB PO SCH ×2 (08:47→17:24)
[2017-09-18] MEDS: Furosemide 40 MG TAB PO SCH (08:48)
[2017-09-18] MEDS: Spironolactone 25 MG TAB PO SCH (08:48)
[2017-09-18] MEDS: carBAMazepine 200 MG TAB PO SCH ×3 (08:48→21:06)
[2017-09-18] MEDS: Insulin Glargine 18 UNITS in Pre-Filled Syringe 1 EACH SC SCH ×2 (09:16→21:13)
[2017-09-18 12:38] LABS: Vancomycin, Trough 32.8 ug/mL
[2017-09-18] MEDS ORDERED: Vancomycin HCl 1.75 GM in Sodium Chloride 0.9% 500 ML IVPB SCH (13:30)
--- NOTE | 2017-09-18 15:33 | PDOC.PN ---
- Subjective Encounter Start Date: 09/18/17 Encounter Start Time: 07:40 Pt seen for followup re: acute on chronic diastolic heart failure. Reports he feels better. Denies chest pain or shortness of breath. - Objective Resuscitation Status: Resuscitation Status FULL:Full Resuscitation MAR Reviewed: Yes Vital Signs & Weight: Vital Signs (12 hours) Temp Pulse Resp BP BP Pulse Ox 09/18/17 12:00 98.4 F 79 17 135/70 96 09/18/17 08:47 86 133/68 09/18/17 08:00 98.6 F 86 18 133/68 100 09/18/17 04:00 98.1 F 80 16 140/72 95 Weight Admit Weight 240 lb 6 oz Weight 245 lb 11.2 oz I&O: 09/17/17 09/18/17 09/19/17 06:59 06:59 06:59 Intake Total 3020 1260 360 Balance 3020 1260 360 Result Diagrams: 09/18/17 03:50 09/18/17 03:50 Additional Labs: Accuchecks 09/18/17 09/17/17 09/17/17 10:51 20:38 16:46 POC Glucose 133 H 178 H 125 H 09/17/17 09/17/17 10:19 05:05 POC Glucose 129 H 103 EKG Reviewed by me: Yes (Tele: renetta haley) Phys Exam - Physical Examination Obese HEENT: moist MMs, sclera anicteric, oral pharynx no lesions, 2+ tonsils Neck: no nodes, supple, full ROM JVD Respiratory: no wheezing, no rhonchi Bibasal crackles Cardiovascular: no rub, irregular S1, S2 Gastrointestinal: soft, non-tender, no distention, positive bowel sounds Musculoskeletal: edema present Neurological: moves all 4 limbs Psychiatric: normal affect Deviation from normal: Oriented to person and place, not to time Dx/Plan (1) Acute on chronic diastolic (congestive) heart failure Code(s): I50.33 - ACUTE ON CHRONIC DIASTOLIC (CONGESTIVE) HEART FAILURE Status : Acute Comment: Change furosemide to 80 mg IV BID (gaining weight) (2) Diabetes mellitus type 2 Code(s): E11.9 - TYPE 2 DIABETES MELLITUS WITHOUT COMPLICATIONS Status: Chronic Comment: on insulin sliding scale and accuchecks (3) Anemia Code(s): D64.9 - ANEMIA, UNSPECIFIED Status: Suspected Comment: stable (4) Chronic atrial fibrillation Code(s): I48.2 - CHRONIC ATRIAL FIBRILLATION Status: Chronic Comment: Stable (5) Hypertension Code(s): I10 - ESSENTIAL (PRIMARY) HYPERTENSION Status: Chronic Qualifiers: Hypertension type: essential hypertension Qualified Code(s): I10 - Essential (primary) hypertension Comment: titrate antihypertensives as needed (6) Leucocytosis Code(s): D72.829 - ELEVATED WHITE BLOOD CELL COUNT, UNSPECIFIED Status: Resolved Qualifiers: Leukocytosis type: bandemia Qualified Code(s): D72.825 - Bandemia Comment: no clear source of infection, await final blood cultures, continue empiric antibiotics - Plan * . Review of Systems - Medications/Allergies Allergies/Adverse Reactions: Allergies Allergy/AdvReac Type Severity Reaction Status Date / Time No Known Allergies Allergy Verified 07/29/17 22:30 Medications: Current Medications Acetaminophen (Tylenol) 650 mg [place] Q4H PRN PRN Reason: Headache/Fever or Pain Acetaminophen (Tylenol) 325 mg PO Q6HR PRN PRN Reason: Pain Acetaminophen/Codeine Phosphate (Tylenol #3) 1 tab PO Q6HR PRN PRN Reason: Moderate Pain (4-6) Amiodarone HCl (Cordarone) 100 mg PO DAILY [facility] Last Admin: 09/18/17 08:47 Dose: 100 mg Amlodipine Besylate (Norvasc) 10 mg PO DAILY [facility] Last Admin: 09/18/17 08:47 Dose: 10 mg Aspirin (Aspirin Chewable) 81 mg PO DAILY [facility] Last Admin: 09/18/17 08:48 Dose: 81 mg Bisacodyl (Dulcolax) 5 mg PO DAILY PRN PRN Reason: Constipation Carbamazepine (Tegretol) 200 mg PO TID [facility] Last Admin: 09/18/17 15:20 Dose: 200 mg Dextrose/Water (Dextrose 50%) 25 gm SLOW IVP PRN PRN PRN Reason: Hypoglycemia Diltiazem HCl (Cardizem Sr) 120 mg PO DAILY [facility] Last Admin: 09/18/17 08:46 Dose: 120 mg Ferrous Gluconate (Fergon) 324 mg PO DAILY [facility] Last Admin: 09/18/17 08:47 Dose: 324 mg Furosemide (Lasix) 40 mg SLOW IVP 0600,1400 [facility] Last Admin: 09/18/17 15:20 Dose: 40 mg Furosemide (Lasix) 40 mg PO DAILY [facility] Last Admin: 09/18/17 08:48 Dose: 40 mg Glucagon (Glucagon) 1 mg IM PRN PRN PRN Reason: Hypoglycemia Dextrose/Water (D5w) 1,000 mls @ 0 mls/hr IV .Q0M PRN; As Directed PRN Reason: Hypoglycemia Piperacillin Sod/Tazobactam (Sod 3.375 gm/ Sodium Chloride) 100 mls @ 200 mls/ hr IVPB Q6HR [facility] Last Admin: 09/18/17 12:00 Dose: 100 mls Insulin Glargine 18 units/ (Miscellaneous Medication) 0.18 mls @ 0 mls/hr SC BID [facility] Last Admin: 09/18/17 09:16 Dose: 0.18 mls Vancomycin HCl 1.75 gm/ Sodium (Chloride) 500 mls @ 200 mls/hr IVPB .PENDING LEVEL [facility] Insulin Human Lispro (Humalog) 0 units SC .MILD SLIDING SCALE PRN PRN Reason: Mild Correctional Scale Iron/Minerals/Multivitamins (Theragran M) 1 tab PO DAILY [facility] Last Admin: 09/18/17 08:47 Dose: 1 tab Lisinopril (Zestril) 10 mg PO HS [facility] Last Admin: 09/17/17 21:09 Dose: 10 mg Loratadine (Claritin) 10 mg PO DAILY PRN PRN Reason: Allergies Metformin HCl (Glucophage Xr) 1,000 mg PO BID-[facility] Last Admin: 09/18/17 08:47 Dose: 1,000 mg Miscellaneous Medication (Pharmacy To Dose) 1 each IVPB ONE PRN PRN Reason: Pharmacy to dose Stop: 09/25/17 23:22 Pantoprazole Sodium (Protonix) 40 mg PO DAILY [facility] Last Admin: 09/18/17 08:47 Dose: 40 mg Pioglitazone HCl (Actos) 15 mg PO DAILY [facility] Last Admin: 09/18/17 08:47 Dose: 15 mg Rivaroxaban (Xarelto) 20 mg PO 1700 [facility] Last Admin: 09/17/17 17:31 Dose: 20 mg Spironolactone (Aldactone) 25 mg PO DAILY [facility] Last Admin: 09/18/17 08:48 Dose: 25 mg Tramadol HCl (Ultram) 50 mg PO Q6HR PRN PRN Reason: Pain
[2017-09-18] MEDS: Rivaroxaban 10 MG TAB PO SCH (17:24)
[2017-09-18] MEDS: Lisinopril 10 MG TAB PO SCH (21:06)
[2017-09-19 00:37] LABS: Vancomycin, Random 28.3 ug/mL (See Comment)
[2017-09-19] MEDS: Piperacillin/Tazobactam 3.375 GM in Sodium Chloride 0.9% 100 ML IVPB SCH ×4 (05:51→23:51)
[2017-09-19] MEDS: Furosemide 40 MG/4 ML VIAL SLOW IVP SCH ×2 (05:51→15:44)
[2017-09-19] MEDS: metFORMIN XR 500 MG TAB PO SCH ×2 (07:55→18:40)
[2017-09-19] MEDS: Pioglitazone HCl 15 MG TAB PO SCH (07:55)
[2017-09-19] MEDS: Multivitamin W/ Minerals 1 TAB PO SCH (07:55)
[2017-09-19] MEDS: Amlodipine 10 MG TAB PO SCH (07:56)
[2017-09-19] MEDS: Amiodarone 200 MG TAB PO SCH (07:56)
[2017-09-19] MEDS: Ferrous Gluconate 324 MG TAB PO SCH (07:57)
[2017-09-19] MEDS: Diltiazem HCl SR 60 mg Capsule PO SCH (07:57)
[2017-09-19] MEDS: carBAMazepine 200 MG TAB PO SCH ×3 (07:57→21:24)
[2017-09-19] MEDS: Furosemide 40 MG TAB PO SCH (07:57)
[2017-09-19] MEDS: Spironolactone 25 MG TAB PO SCH (07:58)
[2017-09-19] MEDS: Insulin Glargine 18 UNITS in Pre-Filled Syringe 1 EACH SC SCH ×2 (07:58→21:24)
--- NOTE | 2017-09-19 10:09 | PDOC.PN ---
- Subjective Encounter Start Date: 09/19/17 Encounter Start Time: 07:20 Pt seen for followup re: CHF exacerbation. Denies chest pain or shortness of breath. No nausea or vomiting. - Objective Resuscitation Status: Resuscitation Status FULL:Full Resuscitation MAR Reviewed: Yes Vital Signs & Weight: Vital Signs (12 hours) Temp Pulse Resp BP BP Pulse Ox 09/19/17 08:00 99.2 F 91 18 150/69 H 93 L 09/19/17 07:56 91 150/69 H 09/19/17 04:00 80 20 153/70 H Weight Admit Weight 240 lb 6 oz Weight 234 lb I&O: 09/18/17 09/19/17 09/20/17 06:59 06:59 06:59 Intake Total 1260 1565 Balance 1260 1565 Result Diagrams: 09/18/17 03:50 09/18/17 03:50 Additional Labs: Accuchecks 09/19/17 09/18/17 09/18/17 05:56 20:55 16:56 POC Glucose 104 126 H 105 09/18/17 10:51 POC Glucose 133 H EKG Reviewed by me: Yes (Tele: renetta haley) Phys Exam - Physical Examination Obese HEENT: moist MMs Neck: supple Ilya crackles Cardiovascular: RRR Gastrointestinal: soft Musculoskeletal: edema present Neurological: moves all 4 limbs Psychiatric: normal affect Dx/Plan (1) Acute on chronic diastolic (congestive) heart failure Code(s): I50.33 - ACUTE ON CHRONIC DIASTOLIC (CONGESTIVE) HEART FAILURE Status : Acute Comment: Furosemide dose increased yesterday, follow weights, follow renal function (2) Diabetes mellitus type 2 Code(s): E11.9 - TYPE 2 DIABETES MELLITUS WITHOUT COMPLICATIONS Status: Chronic Comment: blood sugars reasonable, continue insulin sliding scale and accuchecks (3) Chronic atrial fibrillation Code(s): I48.2 - CHRONIC ATRIAL FIBRILLATION Status: Chronic Comment: Stable (4) Hypertension Code(s): I10 - ESSENTIAL (PRIMARY) HYPERTENSION Status: Chronic Qualifiers: Hypertension type: essential hypertension Qualified Code(s): I10 - Essential (primary) hypertension Comment: titrate antihypertensives as needed (5) Leucocytosis Code(s): D72.829 - ELEVATED WHITE BLOOD CELL COUNT, UNSPECIFIED Status: Resolved Qualifiers: Leukocytosis type: bandemia Qualified Code(s): D72.825 - Bandemia Comment: Pt has low-grade fevers, continue antibiotics for now, discontinue if final blood cultures negative - Plan * . Review of Systems - Review of Systems Constitutional: negative: fever, chills, sweats, weakness, malaise Respiratory: SOB with Excertion. negative: Cough, Shortness of Breath, Pleuritic Pain, Wheezing Cardiovascular: negative: chest pain, palpitations, orthopnea, paroxysmal nocturnal dyspnea, edema, light headedness - Medications/Allergies Allergies/Adverse Reactions: Allergies Allergy/AdvReac Type Severity Reaction Status Date / Time No Known Allergies Allergy Verified 07/29/17 22:30 Medications: Current Medications Acetaminophen (Tylenol) 650 mg [place] Q4H PRN PRN Reason: Headache/Fever or Pain Acetaminophen (Tylenol) 325 mg PO Q6HR PRN PRN Reason: Pain Acetaminophen/Codeine Phosphate (Tylenol #3) 1 tab PO Q6HR PRN PRN Reason: Moderate Pain (4-6) Amiodarone HCl (Cordarone) 100 mg PO DAILY [facility] Last Admin: 09/19/17 07:56 Dose: 100 mg Amlodipine Besylate (Norvasc) 10 mg PO DAILY [facility] Last Admin: 09/19/17 07:56 Dose: 10 mg Aspirin (Aspirin Chewable) 81 mg PO DAILY [facility] Last Admin: 09/19/17 07:58 Dose: 81 mg Bisacodyl (Dulcolax) 5 mg PO DAILY PRN PRN Reason: Constipation Carbamazepine (Tegretol) 200 mg PO TID [facility] Last Admin: 09/19/17 07:57 Dose: 200 mg Dextrose/Water (Dextrose 50%) 25 gm SLOW IVP PRN PRN PRN Reason: Hypoglycemia Diltiazem HCl (Cardizem Sr) 120 mg PO DAILY [facility] Last Admin: 09/19/17 07:57 Dose: 120 mg Ferrous Gluconate (Fergon) 324 mg PO DAILY [facility] Last Admin: 09/19/17 07:57 Dose: 324 mg Furosemide (Lasix) 40 mg SLOW IVP 0600,1400 [facility] Last Admin: 09/19/17 05:51 Dose: 40 mg Furosemide (Lasix) 40 mg PO DAILY [facility] Last Admin: 09/19/17 07:57 Dose: 40 mg Glucagon (Glucagon) 1 mg IM PRN PRN PRN Reason: Hypoglycemia Dextrose/Water (D5w) 1,000 mls @ 0 mls/hr IV .Q0M PRN; As Directed PRN Reason: Hypoglycemia Piperacillin Sod/Tazobactam (Sod 3.375 gm/ Sodium Chloride) 100 mls @ 200 mls/ hr IVPB Q6HR [facility] Last Admin: 09/19/17 05:51 Dose: 100 mls Insulin Glargine 18 units/ (Miscellaneous Medication) 0.18 mls @ 0 mls/hr SC BID [facility] Last Admin: 09/19/17 07:58 Dose: 0.18 mls Vancomycin HCl 1.75 gm/ Sodium (Chloride) 500 mls @ 200 mls/hr IVPB .PENDING LEVEL [facility] Insulin Human Lispro (Humalog) 0 units SC .MILD SLIDING SCALE PRN PRN Reason: Mild Correctional Scale Iron/Minerals/Multivitamins (Theragran M) 1 tab PO DAILY [facility] Last Admin: 09/19/17 07:55 Dose: 1 tab Lisinopril (Zestril) 10 mg PO HS [facility] Last Admin: 09/18/17 21:06 Dose: 10 mg Loratadine (Claritin) 10 mg PO DAILY PRN PRN Reason: Allergies Metformin HCl (Glucophage Xr) 1,000 mg PO BID[facility] Last Admin: 09/19/17 07:55 Dose: 1,000 mg Miscellaneous Medication (Pharmacy To Dose) 1 each IVPB ONE PRN PRN Reason: Pharmacy to dose Stop: 09/25/17 23:22 Pantoprazole Sodium (Protonix) 40 mg PO DAILY [facility] Last Admin: 09/19/17 07:55 Dose: 40 mg Pioglitazone HCl (Actos) 15 mg PO DAILY [facility] Last Admin: 09/19/17 07:55 Dose: 15 mg Rivaroxaban (Xarelto) 20 mg PO 1700 [facility] Last Admin: 09/18/17 17:24 Dose: 20 mg Spironolactone (Aldactone) 25 mg PO DAILY [facility] Last Admin: 09/19/17 07:58 Dose: 25 mg Tramadol HCl (Ultram) 50 mg PO Q6HR PRN PRN Reason: Pain
--- NOTE | 2017-09-19 11:12 | PDOC.EVN ---
Event Note - Event Note Event Note: Notified by nurse that pt had black stool. Stool occult blood +ve. Hold rivaroxaban, consult GI, follow H/H, start PPI drip.
[2017-09-19 11:53] LABS: Hemoglobin 8.1 g/dL (14.0-18.0)
[2017-09-19 12:12] LABS: Vancomycin, Random 24.7 ug/mL (See Comment)
--- NOTE | 2017-09-19 17:23 | CON ---
DATE OF CONSULTATION: 09/19/2017 CHIEF COMPLAINT: Black stools. HISTORY OF PRESENT ILLNESS: Mr. Bowman is an 81-year-old man who has been followed previously by Dr. Keisha saucedo for iron deficiency anemia. He had been on chronic anticoagulation and presented in July with symptomatic anemia. He underwent EGD and colonoscopy on 07/31/2017. A couple small AVMs were cauter ized in the stomach at that time. Colonoscopy was incomplete due to looping and the right colon was not well visualized. GI was called back today because he passed a black runny stool. He has remaine d hemodynamically stable. He has no abdominal pain or nausea or vomiting. He has been receiving IV iron infusions recently. It does appear that he has been restarted on Xarelto, not exactly clear whe n (01:58) he has been receiving it daily for the last several days at least. This has been held after the bleeding episode this afternoon. PAST MEDICAL HISTORY: Diabetes mellitus type 2, hypertension, atrial fibrillation, stroke, myocardia l infarction, iron deficiency anemia, AVMs in the stomach cauterized back in July. PAST SURGICAL HISTORY: Back surgery, thoracentesis, cholecystectomy, endoscopy. FAMILY HISTORY: Negative for GI malignancy. SOCIAL HISTORY: No alcohol, tobacco or drugs. ALLERGIES: No known drug allergies. MEDICATIONS: Currently include amiodarone, amlodipine, aspirin, Tegretol, diltiazem, ferrous glucona te, furosemide, multiple vitamin with iron, lisinopril, pioglitazone, spironolactone. REVIEW OF SYSTEMS: Negative x10 systems reviewed except as stated in history of present illness. PHYSICAL EXAMINATION: VITAL SIGNS: Temperature 98.9, pulse 76, blood pressure 148/72. GENERAL: He is in no acute distress, awake and alert. EYES: Have no scleral icterus. OROPHARYNX: Clear without lesions. NECK: No cervical or supraclavicular lymphadenopathy. LUNGS: Clear to auscultation bilaterally. HEART: S1, S2. ABDOMEN: Soft, nontender, nondistended. Bowel sounds are present. EXTREMITIES: No lower extremity edema. LABORATORY DATA: Hemoglobin today is 8.1, up from 7.5 yesterday. Creatinine 0.68. IMPRESSION: 1. Iron deficiency anemia. 2. He passed a black stool today. He has been on oral iron. He had negative upper and lower endosc opy in July; however, the colonoscopy did not visualize the right side of the colon. He did have a couple of small AVMs and a couple of erosions cauterized in the stomach in July. 3. Congestive heart failure exacerbation. RECOMMENDATIONS: 1. Nuclear medicine abdominal bleeding scan. 2. Proton pump inhibitor. 3. We will follow trend of the hemoglobin.
[2017-09-19] MEDS: Pantoprazole 80 MG, Admixture Fee 1 EACH in Sodium Chloride 0.9% 100 ML IVP SCH (18:30)
--- NOTE | 2017-09-19 18:35 | NM ---
NUCLEAR MEDICINE GI BLEEDING SCAN: Date: 09/19/17 INDICATION: Black stool, iron deficiency anemia, anticoagulation. RADIOPHARMACEUTICAL: 30 mCi technetium labeled red blood cells. FINDINGS: Gated images were obtained after administration of the radiopharmaceutical over a 90 minute time leo od. There is no area of abnormal radiotracer accumulation that conforms to bowel and moves with time to s uggest an active GI bleed. There is blood pool activity seen within the upper abdomen in the region o f the IVC and liver and within the region of the heart. IMPRESSION: Negative GI bleeding examination. POS: [facility]
[2017-09-19 19:35] LABS: Hemoglobin 7.8 g/dL (14.0-18.0)
[2017-09-19] MEDS: Lisinopril 10 MG TAB PO SCH (21:24)
[2017-09-20 00:45] LABS: Vancomycin, Random 20.2 ug/mL (See Comment)
[2017-09-20] MEDS: Pantoprazole 80 MG, Admixture Fee 1 EACH in Sodium Chloride 0.9% 100 ML IVP SCH (02:44)
[2017-09-20] MEDS: Piperacillin/Tazobactam 3.375 GM in Sodium Chloride 0.9% 100 ML IVPB SCH (06:02)
[2017-09-20] MEDS: Furosemide 40 MG/4 ML VIAL SLOW IVP SCH (06:02)
[2017-09-20] MEDS: metFORMIN XR 500 MG TAB PO SCH ×2 (08:36→18:02)
[2017-09-20] MEDS: Diltiazem HCl SR 60 mg Capsule PO SCH (08:37)
[2017-09-20] MEDS: Amlodipine 10 MG TAB PO SCH (08:37)
[2017-09-20] MEDS: carBAMazepine 200 MG TAB PO SCH ×3 (08:37→21:28)
[2017-09-20] MEDS: Spironolactone 25 MG TAB PO SCH (08:37)
[2017-09-20] MEDS: Furosemide 40 MG TAB PO SCH (08:37)
[2017-09-20] MEDS: Amiodarone 200 MG TAB PO SCH (08:37)
[2017-09-20] MEDS: Multivitamin W/ Minerals 1 TAB PO SCH (08:38)
[2017-09-20] MEDS: Pioglitazone HCl 15 MG TAB PO SCH (08:39)
[2017-09-20] MEDS: Ferrous Gluconate 324 MG TAB PO SCH (08:39)
[2017-09-20] MEDS: Insulin Glargine 18 UNITS in Pre-Filled Syringe 1 EACH SC SCH ×2 (09:31→21:28)
[2017-09-20] MEDS ORDERED: Vancomycin HCl 1 GM in Premix Bag 1 BAG IVPB SCH (10:00)
[2017-09-20] MEDS ORDERED: Pantoprazole 40 MG GRANULES PACKET PO SCH (10:30)
--- NOTE | 2017-09-20 13:22 | PDOC.PN ---
- Subjective Encounter Start Date: 09/20/17 Encounter Start Time: 07:00 Pt seen for followup re: CHF exacerbation. Denies chest pain or shortness of breath. - Objective Resuscitation Status: Resuscitation Status FULL:Full Resuscitation MAR Reviewed: Yes Vital Signs & Weight: Vital Signs (12 hours) Temp Pulse Resp BP BP Pulse Ox 09/20/17 12:00 98.4 F 80 16 133/62 92 L 09/20/17 08:37 91 138/63 09/20/17 07:33 98.2 F 91 18 95 09/20/17 07:30 98.2 F 91 18 138/63 95 09/20/17 04:00 98.2 F 82 18 132/63 92 L Weight Admit Weight 240 lb 6 oz Weight 232 lb I&O: 09/19/17 09/20/17 09/21/17 06:59 06:59 06:59 Intake Total 1565 1568 240 Balance 1565 1568 240 Result Diagrams: 09/19/17 19:07 09/18/17 03:50 Additional Labs: Accuchecks 09/20/17 09/20/17 09/19/17 11:29 05:39 20:19 POC Glucose 115 H 75 179 H EKG Reviewed by me: Yes (Tele: a. fib) Phys Exam - Physical Examination Obesity HEENT: moist MMs Neck: supple Ilya crackles Cardiovascular: RRR Gastrointestinal: soft Musculoskeletal: edema present Neurological: moves all 4 limbs Psychiatric: normal affect Dx/Plan (1) Acute on chronic diastolic (congestive) heart failure Code(s): I50.33 - ACUTE ON CHRONIC DIASTOLIC (CONGESTIVE) HEART FAILURE Status : Acute Comment: Change furosemide to oral from tomorrow. (2) Diabetes mellitus type 2 Code(s): E11.9 - TYPE 2 DIABETES MELLITUS WITHOUT COMPLICATIONS Status: Chronic Comment: continue insulin sliding scale and accuchecks (3) Chronic atrial fibrillation Code(s): I48.2 - CHRONIC ATRIAL FIBRILLATION Status: Chronic Comment: Stable (4) Hypertension Code(s): I10 - ESSENTIAL (PRIMARY) HYPERTENSION Status: Chronic Qualifiers: Hypertension type: essential hypertension Qualified Code(s): I10 - Essential (primary) hypertension Comment: titrate antihypertensives as needed (5) Leucocytosis Code(s): D72.829 - ELEVATED WHITE BLOOD CELL COUNT, UNSPECIFIED Status: Resolved Qualifiers: Leukocytosis type: bandemia Qualified Code(s): D72.825 - Bandemia Comment: Final blood cultures negative, discontinue antibiotics - Plan * . Review of Systems - Medications/Allergies Allergies/Adverse Reactions: Allergies Allergy/AdvReac Type Severity Reaction Status Date / Time No Known Allergies Allergy Verified 07/29/17 22:30 Medications: Current Medications Acetaminophen (Tylenol) 650 mg OH Q4H PRN PRN Reason: Headache/Fever or Pain Acetaminophen (Tylenol) 325 mg PO Q6HR PRN PRN Reason: Pain Acetaminophen/Codeine Phosphate (Tylenol #3) 1 tab PO Q6HR PRN PRN Reason: Moderate Pain (4-6) Amiodarone HCl (Cordarone) 100 mg PO DAILY [facility] Last Admin: 09/20/17 08:37 Dose: 100 mg Amlodipine Besylate (Norvasc) 10 mg PO DAILY [facility] Last Admin: 09/20/17 08:37 Dose: 10 mg Aspirin (Aspirin Chewable) 81 mg PO DAILY [facility] Last Admin: 09/20/17 08:38 Dose: 81 mg Bisacodyl (Dulcolax) 5 mg PO DAILY PRN PRN Reason: Constipation Carbamazepine (Tegretol) 200 mg PO TID [facility] Last Admin: 09/20/17 08:37 Dose: 200 mg Dextrose/Water (Dextrose 50%) 25 gm SLOW IVP PRN PRN PRN Reason: Hypoglycemia Diltiazem HCl (Cardizem Sr) 120 mg PO DAILY [facility] Last Admin: 09/20/17 08:37 Dose: 120 mg Ferrous Gluconate (Fergon) 324 mg PO DAILY [facility] Last Admin: 09/20/17 08:39 Dose: 324 mg Furosemide (Lasix) 40 mg SLOW IVP 0600,1400 [facility] Last Admin: 09/20/17 06:02 Dose: 40 mg Furosemide (Lasix) 40 mg PO DAILY [facility] Last Admin: 09/20/17 08:37 Dose: 40 mg Glucagon (Glucagon) 1 mg IM PRN PRN PRN Reason: Hypoglycemia Dextrose/Water (D5w) 1,000 mls @ 0 mls/hr IV .Q0M PRN; As Directed PRN Reason: Hypoglycemia Insulin Glargine 18 units/ (Miscellaneous Medication) 0.18 mls @ 0 mls/hr SC BID [facility] Last Admin: 09/20/17 09:31 Dose: 0.18 mls Insulin Human Lispro (Humalog) 0 units SC .MILD SLIDING SCALE PRN PRN Reason: Mild Correctional Scale Iron/Minerals/Multivitamins (Theragran M) 1 tab PO DAILY [facility] Last Admin: 09/20/17 08:38 Dose: 1 tab Lisinopril (Zestril) 10 mg PO HS [facility] Last Admin: 09/19/17 21:24 Dose: 10 mg Loratadine (Claritin) 10 mg PO DAILY PRN PRN Reason: Allergies Metformin HCl (Glucophage Xr) 1,000 mg PO BID[facility] Last Admin: 09/20/17 08:36 Dose: 1,000 mg Miscellaneous Medication (Pharmacy To Dose) 1 each IVPB ONE PRN PRN Reason: Pharmacy to dose Stop: 09/25/17 23:22 Pantoprazole Sodium (Protonix) 40 mg PO BID [facility] Pioglitazone HCl (Actos) 15 mg PO DAILY [facility] Last Admin: 09/20/17 08:39 Dose: 15 mg Rivaroxaban (Xarelto) 20 mg PO 1700 [facility] Spironolactone (Aldactone) 25 mg PO DAILY [facility] Last Admin: 09/20/17 08:37 Dose: 25 mg Tramadol HCl (Ultram) 50 mg PO Q6HR PRN PRN Reason: Pain
[2017-09-20] MEDS: Rivaroxaban 10 MG TAB PO SCH (18:02)
--- NOTE | 2017-09-20 18:44 | PRG ---
DATE OF SERVICE: 09/20/2017 REASON FOR CONSULTATION: Anemia, melena SUBJECTIVE: The patient is doing well overnight, no acute events or problems. He has not had any further episodes of black colored stools. Per nursing staff , he had approximately 1 larger volume black colored stool yesterday that had the appearance of melena, but not necessarily associated with the odor. No further episodes since that time. Currently, denies any nausea, vomiting, fevers, chills, chest pain, abdominal pain, hematemesis or hematochezia. OBJECTIVE: VITAL SIGNS: Temperature 98.4, pulse 80, blood pressure 133/62, respiratory rate 16, satting 92% on room air. GENERAL: The patient lying in bed, in no acute distress. He is alert and oriented x4. CARDIOVASCULAR: Regular rate and rhythm. PULMONARY: Clear to auscultation bilaterally. ABDOMEN: Normoactive bowel sounds, soft, nontender, nondistended, obese abdomen. EXTREMITIES: 1+/2+ bilateral lower extremity edema extending to the bilateral knees. LABORATORY DATA: Hemoglobin 7.8, hematocrit 26.8. IMAGING DATA: GI nuclear bleeding scan/tagged red blood cell scan was obtained on 09/19/2017 and did not show any evidence of abnormal radiotracer accumulation that conformed to the bowel to suggest an active GI bleed. ASSESSMENT AND PLAN: The patient is an 81-year-old male with multiple medical problems presenting with acute on chronic exacerbation of his congestive heart failure as well as anemia. Anemia: The patient is presenting with a history of chronic anemia with her hemoglobin hovering between 8 and 9.5 at any given time. He has been hospitalized on multiple different occasions for exacerbations of his congestive heart failure with multiple lab draws performed during all of these hospitalizations. He does have a history of chronic microcytic anemia which had undergone both upper and lower endoscopy on 07/31/2017, which showed two nonbleeding arteriovenous malformations as well as 2 linear erosions within the upper GI tract. These were successfully intervened upon with argon plasma coagulation. The colonoscopy performed at that time as well did not show any evidence of acute GI bleed, but incomplete evaluation was made of the colon with inability to reach the cecum due to patient's body habitus and significant redundant colon. Since that time his H&H has slowly increased, but not a tremendous amount when compared to the hospitalization in 07/2017. At this time , with the appearance of his dark black liquid stool without a decrease in his H &H and without any evidence of hemodynamic instability and a negative tagged red cell scan, the likelihood of GI bleed is very low. RECOMMENDATIONS: 1. We will continue to trend H&H and transfuse as necessary to maintain an H&H of 11/27. 2. Continue to monitor for signs of active gastrointestinal bleeding. 3. Agree with iron supplementation at this time. 4. Upper and lower endoscopy are not indicated at this time given lack of change in his H&H when compared to previous hospitalization in July and Negative GI bleeding scan. 5. We would continue with PPI administration twice daily as the patient has been doing. We will sign off at this time. Please call with any additional questions. MTDD
[2017-09-20] MEDS: Lisinopril 10 MG TAB PO SCH (21:29)
[2017-09-21 05:22] LABS: Anion Gap 15 mmol/L (10-20); BUN (Urea Nitrogen) 16 mg/dL (8.4-25.7); Calc. Creatinine Clearance 64 mL/min (70-130); Calcium 8.3 mg/dL (7.8-10.44); Carbon Dioxide 26 mmol/L (23-31); Chloride 100 mmol/L (98-107); Estimated GFR-MDRD 60; Glucose 69 mg/dL (83-110); Potassium 3.1 mmol/L (3.5-5.1); Sodium 138 mmol/L (136-145)
[2017-09-21 05:30] LABS: #Basophils 0.1 thou/uL (0.0-0.2); #Eosinphils 0.3 thou/uL (0.0-0.7); #Lymphocytes 0.9 thou/uL (1.20-3.40); #Monocytes 0.5 thou/uL (0.11-0.59); #Neutrophils 5.5 thou/uL (1.40-6.50); %Basophils 1.3 % (0.0-1.0); %Eosinophils 4.4 % (0.0-10.0); %Lymphocytes 12.2 % (21.0-51.0); %Monocytes 7.2 % (0.0-10.0); Anisocytosis SLIGHT = 6-15 cells (100X) (0-5/hpf); Hemoglobin 6.8 g/dL (14.0-18.0); Hypochromia SLIGHT = 6-15 cells (100X) (0-5/hpf); MDiff Complete? YES; Mean Corpuscular HGB CONC 29.5 g/dL (32.0-36.0); Mean Corpuscular Hemoglobin 24.8 pg (27.0-31.0); Mean Corpuscular Volume 84.2 fl (80.0-94.0); Mean Platelet Volume 9.3 fL (7.4-10.4); Platelet Count 302 thou/uL (130-400); Polychromasia SLIGHT = 2-3 cells (100X) (0-2/hpf); RBC Distribution Width 22.8 % (11.5-14.5); Red Blood Cell (RBC) Count 2.75 mill/uL (4.70-6.10); Target Cells SLIGHT = 2-5 cells (100X) (0-1/hpf); White Blood Cell (WBC) Count 7.3 thou/uL (4.8-10.8)
[2017-09-21 08:38] LABS: Hemoglobin 6.7 g/dL (14.0-18.0)
[2017-09-21] MEDS: Multivitamin W/ Minerals 1 TAB PO SCH (10:09)
[2017-09-21] MEDS: Amiodarone 200 MG TAB PO SCH (10:09)
[2017-09-21] MEDS: Diltiazem HCl SR 60 mg Capsule PO SCH (10:10)
[2017-09-21] MEDS: carBAMazepine 200 MG TAB PO SCH ×3 (10:11→22:01)
[2017-09-21] MEDS: Spironolactone 25 MG TAB PO SCH (10:11)
[2017-09-21] MEDS: Pioglitazone HCl 15 MG TAB PO SCH (10:11)
[2017-09-21] MEDS: Amlodipine 10 MG TAB PO SCH (10:12)
[2017-09-21] MEDS: Furosemide 40 MG TAB PO SCH (10:12)
[2017-09-21] MEDS: Ferrous Gluconate 324 MG TAB PO SCH (10:12)
[2017-09-21] MEDS: metFORMIN XR 500 MG TAB PO SCH ×2 (10:13→17:22)
[2017-09-21] MEDS: Insulin Glargine 18 UNITS in Pre-Filled Syringe 1 EACH SC SCH ×2 (10:13→22:01)
--- NOTE | 2017-09-21 16:06 | PDOC.PN ---
- Subjective Encounter Start Date: 09/21/17 Encounter Start Time: 07:40 Pt seen for followup re: anemia. Denies chest pain, shortness of breath, fevers or chills. No nausea or vomiting. - Objective Resuscitation Status: Resuscitation Status FULL:Full Resuscitation MAR Reviewed: Yes Vital Signs & Weight: Vital Signs (12 hours) Temp Pulse Resp BP BP Pulse Ox 09/21/17 11:05 98.2 F 67 18 135/63 96 09/21/17 10:12 76 121/58 L 09/21/17 07:40 98.2 F 67 18 121/58 L 96 Weight Admit Weight 240 lb 6 oz Weight 220 lb 3.2 oz Most Recent Monitor Data Heart Rate from ECG 67 NIBP 135/63 I&O: 09/20/17 09/21/17 09/22/17 06:59 06:59 06:59 Intake Total 1568 1660 0 Balance 1568 1660 0 Result Diagrams: 09/21/17 08:06 09/21/17 03:49 Additional Labs: Accuchecks 09/21/17 09/21/17 09/20/17 11:31 05:46 20:28 POC Glucose 106 89 132 H 09/20/17 16:31 POC Glucose 86 EKG Reviewed by me: Yes (Tele: a. tera) Phys Exam - Physical Examination Constitutional: NAD HEENT: moist MMs Neck: supple Respiratory: clear to auscultation bilateral Cardiovascular: irregular Gastrointestinal: soft Neurological: moves all 4 limbs Psychiatric: normal affect Dx/Plan (1) Anemia Code(s): D64.9 - ANEMIA, UNSPECIFIED Status: Acute Comment: Hemoglobin dropped again, transfuse pRBC and check hemoglobin (2) Hypokalemia Code(s): E87.6 - HYPOKALEMIA Status: Acute Comment: replace potassium (3) Acute on chronic diastolic (congestive) heart failure Code(s): I50.33 - ACUTE ON CHRONIC DIASTOLIC (CONGESTIVE) HEART FAILURE Status : Acute Comment: stable, on oral furosemide (4) Diabetes mellitus type 2 Code(s): E11.9 - TYPE 2 DIABETES MELLITUS WITHOUT COMPLICATIONS Status: Chronic Comment: continue insulin sliding scale and accuchecks (5) Chronic atrial fibrillation Code(s): I48.2 - CHRONIC ATRIAL FIBRILLATION Status: Chronic Comment: Stable (6) Hypertension Code(s): I10 - ESSENTIAL (PRIMARY) HYPERTENSION Status: Chronic Qualifiers: Hypertension type: essential hypertension Qualified Code(s): I10 - Essential (primary) hypertension Comment: stable (7) Leucocytosis Code(s): D72.829 - ELEVATED WHITE BLOOD CELL COUNT, UNSPECIFIED Status: Resolved Qualifiers: Leukocytosis type: bandemia Qualified Code(s): D72.825 - Bandemia (8) Anemia Code(s): D64.9 - ANEMIA, UNSPECIFIED Status: Acute - Plan * . Review of Systems - Medications/Allergies Allergies/Adverse Reactions: Allergies Allergy/AdvReac Type Severity Reaction Status Date / Time No Known Allergies Allergy Verified 07/29/17 22:30 Medications: Current Medications Acetaminophen (Tylenol) 650 mg OR Q4H PRN PRN Reason: Headache/Fever or Pain Acetaminophen (Tylenol) 325 mg PO Q6HR PRN PRN Reason: Pain Acetaminophen/Codeine Phosphate (Tylenol #3) 1 tab PO Q6HR PRN PRN Reason: Moderate Pain (4-6) Amiodarone HCl (Cordarone) 100 mg PO DAILY [facility] Last Admin: 09/21/17 10:09 Dose: 100 mg Amlodipine Besylate (Norvasc) 10 mg PO DAILY [facility] Last Admin: 09/21/17 10:12 Dose: 10 mg Aspirin (Aspirin Chewable) 81 mg PO DAILY [facility] Last Admin: 09/21/17 10:11 Dose: 81 mg Bisacodyl (Dulcolax) 5 mg PO DAILY PRN PRN Reason: Constipation Carbamazepine (Tegretol) 200 mg PO TID [facility] Last Admin: 09/21/17 15:17 Dose: 200 mg Dextrose/Water (Dextrose 50%) 25 gm SLOW IVP PRN PRN PRN Reason: Hypoglycemia Diltiazem HCl (Cardizem Sr) 120 mg PO DAILY [facility] Last Admin: 09/21/17 10:10 Dose: 120 mg Ferrous Gluconate (Fergon) 324 mg PO DAILY [facility] Last Admin: 09/21/17 10:12 Dose: 324 mg Furosemide (Lasix) 40 mg PO DAILY [facility] Last Admin: 09/21/17 10:12 Dose: 40 mg Glucagon (Glucagon) 1 mg IM PRN PRN PRN Reason: Hypoglycemia Dextrose/Water (D5w) 1,000 mls @ 0 mls/hr IV .Q0M PRN; As Directed PRN Reason: Hypoglycemia Insulin Glargine 18 units/ (Miscellaneous Medication) 0.18 mls @ 0 mls/hr SC BID [facility] Last Admin: 09/21/17 10:13 Dose: Not Given Insulin Human Lispro (Humalog) 0 units SC .MILD SLIDING SCALE PRN PRN Reason: Mild Correctional Scale Iron/Minerals/Multivitamins (Theragran M) 1 tab PO DAILY [facility] Last Admin: 09/21/17 10:09 Dose: 1 tab Lisinopril (Zestril) 10 mg PO HS [facility] Last Admin: 09/20/17 21:29 Dose: 10 mg Loratadine (Claritin) 10 mg PO DAILY PRN PRN Reason: Allergies Metformin HCl (Glucophage Xr) 1,000 mg PO BID-[facility] Last Admin: 09/21/17 10:13 Dose: 1,000 mg Miscellaneous Medication (Pharmacy To Dose) 1 each IVPB ONE PRN PRN Reason: Pharmacy to dose Stop: 09/25/17 23:22 Pantoprazole Sodium (Protonix) 40 mg PO BID [facility] Last Admin: 09/21/17 10:13 Dose: 40 mg Pioglitazone HCl (Actos) 15 mg PO DAILY [facility] Last Admin: 09/21/17 10:11 Dose: 15 mg Rivaroxaban (Xarelto) 20 mg PO 1700 [facility] Last Admin: 09/20/17 18:02 Dose: 20 mg Spironolactone (Aldactone) 25 mg PO DAILY [facility] Last Admin: 09/21/17 10:11 Dose: 25 mg Tramadol HCl (Ultram) 50 mg PO Q6HR PRN PRN Reason: Pain
[2017-09-21] MEDS: Potassium Chloride 20 MEQ TAB PO SCH ×2 (17:21→22:02)
[2017-09-21] MEDS: Rivaroxaban 10 MG TAB PO SCH (17:21)
[2017-09-21] MEDS: Lisinopril 10 MG TAB PO SCH (22:02)
[2017-09-22 04:59] LABS: #Basophils 0.1 thou/uL (0.0-0.2); #Eosinphils 0.3 thou/uL (0.0-0.7); #Lymphocytes 1.1 thou/uL (1.20-3.40); #Monocytes 0.7 thou/uL (0.11-0.59); #Neutrophils 6.9 thou/uL (1.40-6.50); %Basophils 1.1 % (0.0-1.0); %Eosinophils 2.8 % (0.0-10.0); %Lymphocytes 11.7 % (21.0-51.0); %Monocytes 7.5 % (0.0-10.0); Hemoglobin 8.2 g/dL (14.0-18.0); Mean Corpuscular HGB CONC 30.4 g/dL (32.0-36.0); Mean Corpuscular Hemoglobin 25.7 pg (27.0-31.0); Mean Corpuscular Volume 84.5 fl (80.0-94.0); Mean Platelet Volume 8.2 fL (7.4-10.4); Platelet Count 318 thou/uL (130-400); RBC Distribution Width 19.1 % (11.5-14.5); Red Blood Cell (RBC) Count 3.21 mill/uL (4.70-6.10)
[2017-09-22 05:14] LABS: Anion Gap 9 mmol/L (10-20); BUN (Urea Nitrogen) 21 mg/dL (8.4-25.7); Calc. Creatinine Clearance 61 mL/min (70-130); Calcium 8.3 mg/dL (7.8-10.44); Carbon Dioxide 33 mmol/L (23-31); Chloride 101 mmol/L (98-107); Estimated GFR-MDRD 60; Glucose 107 mg/dL (83-110); Potassium 4.2 mmol/L (3.5-5.1); Sodium 139 mmol/L (136-145)
[2017-09-22] MEDS: Ferrous Gluconate 324 MG TAB PO SCH (08:33)
[2017-09-22] MEDS: Pioglitazone HCl 15 MG TAB PO SCH (08:33)
[2017-09-22] MEDS: metFORMIN XR 500 MG TAB PO SCH (08:33)
[2017-09-22] MEDS: Multivitamin W/ Minerals 1 TAB PO SCH (08:33)
[2017-09-22] MEDS: Amlodipine 10 MG TAB PO SCH (08:34)
[2017-09-22] MEDS: carBAMazepine 200 MG TAB PO SCH ×2 (08:34→15:33)
[2017-09-22] MEDS: Diltiazem HCl SR 60 mg Capsule PO SCH (08:34)
[2017-09-22] MEDS: Amiodarone 200 MG TAB PO SCH (08:34)
[2017-09-22] MEDS: Spironolactone 25 MG TAB PO SCH (08:37)
[2017-09-22] MEDS: Furosemide 40 MG TAB PO SCH (08:37)
[2017-09-22] MEDS: Insulin Glargine 18 UNITS in Pre-Filled Syringe 1 EACH SC SCH (08:38)
[2017-09-22 14:37] VITALS: BMI 33.5
[2017-09-22 15:37] VITALS: BP 135/61; TEMP 97.9
--- NOTE | 2017-09-22 18:59 | DIS ---
PRIMARY CARE PROVIDER: Raza Suarez M.D. DATE OF ADMISSION: 09/15/2017 DATE OF DISCHARGE: 09/22/2017 DISCHARGE DIAGNOSES: 1. Congestive heart failure exacerbation (ACC AHA Class C). 2. Leukocytosis. 3. Anemia. CONSULTATIONS DURING THIS HOSPITALIZATION: Gastroenterology, Dr. Edu Phillips. CONDITION OF PATIENT ON THE DAY OF DISCHARGE: Stable. I assessed Mr. Bowman on the day of discharge. He denies any chest pain or shortness of breath. Vital signs are stable. S1 and S2 are heard, regular. Lungs are clear to auscultation bilaterally. DISCHARGE MEDICATIONS: His lisinopril and metformin were on hold because of renal insufficiency. His discharge medications include Tylenol 325 mg every 6 hours as needed; Tylenol No. 3 as needed; amiodarone 100 mg daily; Norvasc 10 mg daily; aspirin 81 mg daily; bisacodyl 5 mg daily as needed; Tegretol 200 mg 3 times a day; diltiazem 120 mg daily; ferrous gluconate 324 mg daily; furosemide 40 mg daily; Levemir insulin 18 units 2 times a day; Claritin 10 mg daily as needed; multivitamins 1 tablet daily; Protonix 40 mg 2 times a day, which has been increased from 40 mg daily; Actos 15 mg daily; rivaroxaban 20 mg daily; spironolactone 25 mg daily; tramadol 50 mg every 6 hours as needed. HOSPITAL COURSE: Mr. Bowman is a pleasant 81-year-old gentleman who was admitted to [facility] on 09/15/2017 for congestive heart failure exacerbation. At the time of admission, he also had leukocytosis with bandemia. He was treated with empiric antibiotics. All cultures were negative. He received intravenous furosemide for congestive heart failure exacerbation and improved clinically. He also had a drop in his hemoglobin to 6.8 on 09/21/2017. He was seen by Gastroenterology Service, who did not recommend any scope studies at this time. On 09/21/2017, he had hemoglobin of 6.7. He received 2 units of packed RBCs and hemoglobin improved to 8.2. He told me that at his custodial they checked his hemoglobin on a daily basis and decide whether to give anticoagulation or not. I discussed with Gastroenterology Service, who is agreeable with this line of approach. No scope studies were done during this hospitalization. On the day of discharge, he has white count 9000, hemoglobin 8.2, platelet count 318,000, normal sodium, normal potassium and elevated creatinine of 1.37. He will need his creatinine level checked in 3-5 days' time. The elevated creatinine level was most likely secondary to aggressive diuresis. His lisinopril and metformin will be on hold until creatinine improves. Many thanks for allowing me to participate in your patient's care. Please feel free to contact me with any questions or concerns. DISCHARGE DESTINATION: [facility], from where he was admitted to the hospital. TOTAL AMOUNT OF TIME SPENT COORDINATING THIS DISCHARGE: Thirty two minutes. BRIONNA
--- NOTE | 2017-09-24 12:12 | PQF ---
DANG BARAKATCOREY [id number] CLINICAL DOCUMENTATION CLARIFICATION FORM: POST DISCHARGE Addendum to original discharge summary date: 09/22/2017 DATE: 09/24/17 ATTN: Dr. Quezada Please exercise your independent, professional judgment in responding to the clarification form. Clinical indicators are provided on the bottom of this form for your review Please clarify if the diagnosis of "Status post stroke with left-sided hemiplegia" is: Please check appropriate box(s): Conflicting documentation was noted in the Medical Record, please clarify if patient is being treated/monitored for: [ ] Status post stroke with left-sided hemiplegia is an ongoing problem/ diagnosis [ X ] Status post stroke with left-sided hemiplegia is not an ongoing problem/ diagnosis [ ] Other diagnosis (please specify) [ ] Unable to determine In addition, please specify: Present on Admission (POA): [ ] Yes [ ] No [ ] Unable to determine For continuity of documentation, please document condition throughout progress notes and discharge summary. Thank You. CLINICAL INDICATORS - SIGNS / SYMPTOMS/ LABS Per H&P (past medical history): Status post stroke with left-sided hemiplegia. Musculoskeletal: Left upper extremity in a contracted position. Power is 5/ 5 in right upper and lower extremities. History of cerebrovascular accident: Stable. Per Hospitalist progress notes: Neurological: moves all 4 limbs. Per ED record: Upper Extremity: Normal. Lower Extremity: Normal except for "tight legs bilaterally, left larger than right which pt report is chronic." RISK FACTORS Per H&P: History of stroke. TREATMENT None, Patient admitted for CHF exacerbation. IV Lasix. (This form is maintained as a part of the permanent medical record) 2014 [employer] All Rights Reserved Deidra [email or web address] [phone] MTDD
--- NOTE | 2017-09-25 17:05 | EKG ---
Test Reason : ER INDICATION Blood Pressure : / mmHG Vent. Rate : 094 BPM Atrial Rate : 131 BPM P-R Int : 000 ms QRS Dur : 080 ms QT Int : 280 ms P-R-T Axes : 000 022 220 degrees QTc Int : 350 ms Atrial fibrillation Abnormal ECG Confirmed by BUDDY PIRES ([id number]), movie editor RADHA LAZO ([id number]) on 09/25/2017 5:04:56 PM Referred By: Confirmed By:BUDDY PIRES
== END 2017-09-22 16:26 | DRG 293 ==
LOC: ERS 14:56 → 2NO 18:47
PROVIDERS: ADMIT Internal Medicine; ATTEND Internal Medicine
PROC: 30233N1 Transfusion of Nonautologous Red Blood Cells into Peripheral Vein, Percutaneous Approach (ICD-10-PCS; principal; 2017-09-21)
DX: I11.0 Hypertensive heart disease with heart failure (principal); I50.33 Acute on chronic diastolic (congestive) heart failure; E11.9 Type 2 diabetes mellitus without complications; I48.0 Paroxysmal atrial fibrillation; F32.9 Major depressive disorder, single episode, unspecified; D50.9 Iron deficiency anemia, unspecified; E87.6 Hypokalemia; E66.9 Obesity, unspecified; Z68.33 Body mass index [BMI] 33.0-33.9, adult; I25.2 Old myocardial infarction; Z87.11 Personal history of peptic ulcer disease; Z79.82 Long term (current) use of aspirin; Z79.4 Long term (current) use of insulin; Z79.899 Other long term (current) drug therapy
CPT/HCPCS: 36415; 36416; 36430; 51701; 71045; 71275; 78278; 80048; 80053; 80076; 80156; 80202; 81003; 82274; 82553; 83880; 84484; 85014; 85018; 85025; 85379; 85610; 85730; 86850; 86900; 86901; 87040; 93005; 93798; 93970; 96374; A9604; C9113; G8978-GP-CN; G8979-GP-CK; J1650; J1940; J2543; J3370; J7050; P9016

== ENCOUNTER 2017-09-28 15:31 | Inpatient (IN) | payer MEDICARE, MEDICAID ==
[2017-09-28 16:14] LABS: #Basophils 0.1 thou/uL (0.0-0.2); #Eosinphils 0.1 thou/uL (0.0-0.7); #Lymphocytes 1.2 thou/uL (1.20-3.40); #Monocytes 0.4 thou/uL (0.11-0.59); #Neutrophils 7.5 thou/uL (1.40-6.50); %Eosinophils 1.3 % (0.0-10.0); %Lymphocytes 12.5 % (21.0-51.0); %Monocytes 4.5 % (0.0-10.0); %Neutrophils 80.8 % (42.0-75.0); Hemoglobin 6.3 g/dL (14.0-18.0); Mean Corpuscular HGB CONC 31.8 g/dL (32.0-36.0); Mean Corpuscular Hemoglobin 27.1 pg (27.0-31.0); Mean Corpuscular Volume 84.9 fl (80.0-94.0); Mean Platelet Volume 7.4 fL (7.4-10.4); Platelet Count 533 thou/uL (130-400); RBC Distribution Width 19.3 % (11.5-14.5); Red Blood Cell (RBC) Count 2.34 mill/uL (4.70-6.10); White Blood Cell (WBC) Count 9.3 thou/uL (4.8-10.8)
[2017-09-28 16:29] LABS: INR-International Normal Ratio 1.3; PTT 32.4 SEC (22.9-36.1)
[2017-09-28 16:30] LABS: ALT (SGPT) 14 U/L (8-55); AST (SGOT) 37 U/L (5-34); Albumin 3.3 g/dL (3.4-4.8); Alkaline Phosphatase 108 U/L (40-150); Anion Gap 14 mmol/L (10-20); BUN (Urea Nitrogen) 29 mg/dL (8.4-25.7); Bilirubin, Total 0.2 mg/dL (0.2-1.2); Calc. Creatinine Clearance 0 mL/min (70-130); Carbon Dioxide 30 mmol/L (23-31); Chloride 99 mmol/L (98-107); Estimated GFR-MDRD 52; Globulin 4.5 g/dL (2.4-3.5); Glucose 166 mg/dL (83-110); Potassium 4.9 mmol/L (3.5-5.1); Protein, Total 7.8 g/dL (5.8-8.1); Sodium 138 mmol/L (136-145)
[2017-09-28] MEDS ORDERED: Ondansetron ODT 4 MG TAB PO PRN (19:08)
[2017-09-28] MEDS ORDERED: Loratadine 10 MG TAB PO PRN (19:08)
[2017-09-28] MEDS ORDERED: traMADol HCl 50 MG TAB PO PRN (19:08)
[2017-09-28] MEDS ORDERED: Acetaminophen/Codeine 30-300mg Tablet PO PRN (19:08)
[2017-09-28] MEDS ORDERED: Dextrose 5% in Water 1,000 ML IV PRN (19:08)
[2017-09-28] MEDS ORDERED: Dextrose 50% Abboject 50 ML SYRINGE SLOW IVP PRN (19:08)
[2017-09-28] MEDS ORDERED: Acetaminophen 650 MG Suppository PR PRN (19:08)
[2017-09-28] MEDS ORDERED: Acetaminophen 325 MG TAB PO PRN (19:08)
[2017-09-28] MEDS ORDERED: HumaLOG 300 UNITS/3 ML VIAL SC PRN (19:08)
[2017-09-28] MEDS ORDERED: Ondansetron HCl/PF 4 MG/2 ML Vial IVP PRN (19:08)
[2017-09-28] MEDS ORDERED: Bisacodyl 5 MG TAB PO PRN ×2 (19:08)
[2017-09-28] MEDS: Docusate 100 MG CAP PO SCH (20:45)
[2017-09-28] MEDS: carBAMazepine 200 MG TAB PO SCH (20:45)
[2017-09-28] MEDS: Insulin Glargine 18 UNITS in Pre-Filled Syringe 1 EACH SC SCH (20:50)
[2017-09-28] MEDS ORDERED: INSULIN DETEMIR SQ SCH (21:00)
--- NOTE | 2017-09-28 22:04 | HP ---
PRIMARY CARE PHYSICIAN: Raza Suarez M.D. CHIEF COMPLAINT: Low hemoglobin. HISTORY OF PRESENT ILLNESS: This is an 81-year-old male, penitentiary resident, who was in the hospital. Just a few days ago, he was seen for congestive heart failure exacerbation and also had a drop in his hemoglobin, after transfusion it got up from 6-8. He had Gastroenterology co nsulted during his hospitalization, they recommended no scoping at that time. He has chronic atrial fibrillation and is on a rivaroxaban daily, which is occasionally held if his blood count is dropping , so he was discharged on that back to the [facility]itent[facility]. At the penitentiary, the patient was noted to have a drop in his hemoglobin again. Discharged 6 days ago, over the next 4 days it dropped again and today was less than 6 on recheck. When he got to the emergency room here, the hemoglobin was 6. 3, so he is being admitted for transfusion. The patient denies any symptoms from this. No shortness of breath or weakness. PAST MEDICAL HISTORY: 1. Diabetes mellitus type 2, on insulin and oral hypoglycemics. 2. Hypertension. 3. Paroxysmal atrial fibrillation, on anticoagulation. 4. Cerebrovascular disease, status post stroke with left-sided hemiplegia. 5. Gastric ulcers. 6. Myocardial infarction. PAST SURGICAL HISTORY: 1. Back surgery. 2. Right thoracentesis. 3. Cholecystectomy. PAST PSYCHIATRIC HISTORY: Depression. FAMILY HISTORY: No family history of premature coronary artery disease. SOCIAL HISTORY: The patient denies tobacco, alcohol, or illicit drug use. He is a penitentiary resi dent and needs moderate assistance just to sit up. He is unable to ambulate. ALLERGIES: No known drug allergies. CURRENT MEDICATIONS: Unchanged from previous discharge. 1. Acetaminophen with codeine #3 one every 6 hours as needed for pain. 2. Amiodarone 100 mg daily. 3. Amlodipine 10 mg daily. 4. Aspirin 81 mg daily. 5. Dulcolax 5 mg daily as needed for constipation. 6. Tegretol 200 mg 3 times a day. 7. Diltiazem 120 mg daily. 8. Ferrous gluconate 324 mg daily. 9. Furosemide 40 mg daily. 10. Levemir 18 units subcu twice a day. 11. Claritin 10 mg daily as needed for allergies. 12. Multivitamin 1 tablet daily. 13. Protonix 40 mg twice a day. 14. Actos 15 mg daily. 15. Xarelto 20 mg daily. 16. Spironolactone 25 mg daily. 17. Tramadol 50 mg every 6 hours as needed for pain. REVIEW OF SYSTEMS: Constitutional: No fevers, no chills. Eyes: No double vision or blurred vision . ENT: No congestion, drainage or sore throat. Cardiovascular: No chest pain, no palpitations or racing heart. Pulmonary: No coughing, wheezing or shortness of breath. Gastrointestinal: No abdom inal pain, no nausea or vomiting. No diarrhea or constipation. Genitourinary: No dysuria or hematuria. He does have a little bit of hesitancy with urination which is chronic for him. Musculoskeletal: He has not noticed any pain in his extremities or his back. Skin: He has not noticed any rashes. Neurologic: The patient has left-sided weakness and is unable to walk secondary to his previous stroke. No new symptoms. PHYSICAL EXAMINATION: VITAL SIGNS: Blood pressure 114/67, pulse 68, respirations 20, temperature 99.0, O2 sat 100% on room air. GENERAL: This is a well-developed elderly black man, in no acute distress. HEENT: Pupils equal, round, and reactive to light. Oropharynx clear without lesions, erythema or ex udate. NECK: Supple, no lymphadenopathy, no thyroid nodules or enlargement, no JVD. HEART: Irregularly irregular with a controlled rate. No murmurs. LUNGS: Clear to auscultation bilaterally. No wheezes, crackles or rhonchi. ABDOMEN: Soft, nontender to palpation, normoactive bowel sounds. No hepatosplenomegaly or other mas ses. EXTREMITIES: No clubbing or cyanosis. He does have trace bilateral lower extremity edema to the oly ns and feet. SKIN: No rashes or lesions noted. NEUROLOGIC: He has weakness of his left side and just some generalized weakness overall. Clear spee ch without any facial droop. PSYCHIATRIC: Alert and oriented x3. Normal mood and affect. LABORATORY DATA: CBC with a white blood cell count of 9.3, hemoglobin 6.3, hematocrit 19.9, MCV of 8 4, platelet count 533. Coagulation profile shows PT of 16, INR 1.3 and a PTT of 32. Complete metabo lic panel was notable for a BUN of 29, creatinine of 1.5, which is up a little bit from the end of hi s last admission and is typically normal; however, glucose of 166, AST of 37 and albumin of 3.3. EKG in the emergency room did show atrial fibrillation with premature ventricular contractions with a co ntrolled rate. ASSESSMENT AND PLAN: 1. Recurrent anemia, likely gastrointestinal blood loss, on anticoagulants for atrial fibrillation c ausing stroke. We will need to admit the patient and transfuse 2 units packed red blood cells and ch amy H&H afterward. We will reconsult GI to see if they have any thoughts about or reconsideration of endoscopy with quick re-drop in the hemoglobin. 2. Atrial fibrillation and previous strokes. The patient is currently on amiodarone as well as nove l anticoagulant, concern with the recurrent hemoglobin drops, although the patient is at high risk fo r another stroke, he may end up needing to stop anticoagulation beyond aspirin. At this time, we toyin l hold his novel anticoagulant, only transfusion. 3. Diastolic congestive heart failure, currently not exacerbated. We will continue fluid restrictio n and also continue Lasix for now. 4. Acute on chronic renal insufficiency. The patient may be a little bit dry and we will consider h olding the Lasix; however, about to give him blood products, which will be extra volume, so we will c ontinue his Lasix for now. We may end up needing to hold it if her creatinine does not improve. 5. Gastrointestinal prophylaxis. We will continue patient's Protonix. CODE STATUS: Patient is a FULL CODE. Should he be incapacitated his medical power of pantograph engraver will be his brother, Juan Bowman.
[2017-09-29 04:45] LABS: #Basophils 0.1 thou/uL (0.0-0.2); #Eosinphils 0.2 thou/uL (0.0-0.7); #Lymphocytes 0.9 thou/uL (1.20-3.40); #Monocytes 0.7 thou/uL (0.11-0.59); %Basophils 0.8 % (0.0-1.0); %Eosinophils 1.6 % (0.0-10.0); %Lymphocytes 9.4 % (21.0-51.0); %Monocytes 7.2 % (0.0-10.0); Hemoglobin 6.9 g/dL (14.0-18.0); Mean Corpuscular HGB CONC 32.2 g/dL (32.0-36.0); Mean Corpuscular Hemoglobin 27.4 pg (27.0-31.0); Mean Corpuscular Volume 85.1 fl (80.0-94.0); Mean Platelet Volume 7.3 fL (7.4-10.4); Platelet Count 439 thou/uL (130-400); RBC Distribution Width 16.8 % (11.5-14.5); Red Blood Cell (RBC) Count 2.51 mill/uL (4.70-6.10); White Blood Cell (WBC) Count 9.9 thou/uL (4.8-10.8)
[2017-09-29 05:07] LABS: Anion Gap 11 mmol/L (10-20); BUN (Urea Nitrogen) 27 mg/dL (8.4-25.7); Calc. Creatinine Clearance 62 mL/min (70-130); Calcium 8.4 mg/dL (7.8-10.44); Carbon Dioxide 28 mmol/L (23-31); Chloride 102 mmol/L (98-107); Estimated GFR-MDRD 61; Glucose 161 mg/dL (83-110); Potassium 3.9 mmol/L (3.5-5.1); Sodium 137 mmol/L (136-145)
[2017-09-29] MEDS: Insulin Glargine 18 UNITS in Pre-Filled Syringe 1 EACH SC SCH ×2 (08:45→20:45)
[2017-09-29] MEDS: Pioglitazone HCl 15 MG TAB PO SCH (08:48)
[2017-09-29] MEDS: Multivitamin W/ Minerals 1 TAB PO SCH (08:48)
[2017-09-29] MEDS: Diltiazem HCl SR 60 mg Capsule PO SCH (08:48)
[2017-09-29] MEDS: Docusate 100 MG CAP PO SCH ×2 (08:48→20:41)
[2017-09-29] MEDS: Amlodipine 5 MG TAB PO SCH (08:49)
[2017-09-29] MEDS: carBAMazepine 200 MG TAB PO SCH ×3 (08:49→20:41)
[2017-09-29] MEDS: Spironolactone 25 MG TAB PO SCH (08:49)
[2017-09-29] MEDS: Ferrous Gluconate 324 MG TAB PO SCH (08:49)
[2017-09-29] MEDS: Amiodarone 200 MG TAB PO SCH (08:49)
[2017-09-29] MEDS ORDERED: Furosemide 40 MG TAB PO SCH (09:00)
[2017-09-29] MEDS: HumaLOG 300 UNITS/3 ML VIAL SC PRN (10:59)
--- NOTE | 2017-09-29 13:21 | CON ---
DATE OF CONSULTATION: 09/28/2017 REASON FOR CONSULTATION: Recurrent anemia. HISTORY: Mr. Bowman is an 81-year-old custodial patient who was readmitted to the hospitalization f or recurrent anemia. He was last admitted about a week ago. Patient is on Xarelto for history of at rial fibrillation and prior stroke. He was admitted back in July for severe anemia. Dr. Sridevi campbell uated him at that time and proceeded with EGD and colonoscopy. EGD at that time showed a couple of s mall erosions and gastric AVMs that were cauterized with APC. Colonoscopy showed a very redundant co dora without visualization of the right colon. A nuclear tagged red cell scan at that time did not sh ow any evidence of active bleeding. The patient was subsequently discharged back to custodial, bu t was readmitted 2 weeks ago with recurrent severe anemia. Apparently, the patient was restarted on Xarelto at that time. GI evaluated the patient at that time and expectant therapy and observation wa s recommended as the patient had CHF exacerbation at that time. A repeat GI bleeding scan was perfor med and again was negative. The patient was discharged back to custodial and was readmitted yeste rday with recurrent anemia with hemoglobin down to 6. It is unsure whether the patient has been rest arted back on Xarelto. Currently, he feels fine. The patient is pretty much wheelchair bound at [facility]. He does not have any orthostatic symptoms. He denies any nausea, vomiting, abdominal jaime n. PAST MEDICAL HISTORY: Diabetes, hypertension, atrial fibrillation, CVA, coronary artery disease with previous KS, CHF. PAST SURGICAL HISTORY: Including cholecystectomy, back surgery, and endoscopy as above. SOCIAL HISTORY: The patient is in custodial. Denies any tobacco or alcohol usage. FAMILY HISTORY: Negative for any known GI problem, liver disease, GI malignancy. MEDICATIONS: Include omeprazole, lisinopril, Norvasc, Actos, Cordarone, Lasix, spironolactone, aspir in, iron gluconate, metformin, questionable Xarelto. ALLERGIES: None. REVIEW OF SYSTEMS: Ten point review of systems was otherwise negative without any other pertinent po sitive or negative. PHYSICAL EXAMINATION: VITAL SIGNS: Temperature is 98.3, blood pressure 139/64, pulse of 87. GENERAL: He is alert, conversant, in no distress. HEENT: Shows anicteric sclerae. Oropharynx clear. NECK: Supple. CARDIOVASCULAR: Shows normal S1, S2 regular rate and rhythm. CHEST: Shows normal breath sounds, poor excursion. ABDOMEN: Mildly protuberant, but soft, nontender, no palpable mass, organomegaly. Has active bowel sounds. EXTREMITIES: Does not show any edema. LABORATORY DATA: WBC is 9.9, hemoglobin 6.3 on admission, 6.9 this morning (8.2 on discharge on 09/07), platelet count of 439. Electrolytes within normal range, creatinine 1.36, BUN of 27, biliru bin 0.2, AST 37, ALT 14, alkaline phosphatase 108. Fecal occult blood was positive on admission. ASSESSMENT: 1. Recurrent anemia with 2 grams drop of hemoglobin in a span of the week. Stool is positive for oc cult blood. Patient had gastric erosions and AVMs that were cauterized with APC 2 months ago. Right colon was not visualized, because of redundancy. 2. Coronary artery disease/congestive heart failure/diabetes/hypertension. 3. Anemia, likely from gastrointestinal blood loss as above, suggesting enteric bleed. RECOMMENDATIONS: 1. Given the patient's recurrent anemia and evidence of GI bleed, I have discussed with patient abou t reattempting another colonoscopy, hopefully this time to visualize the right colon. He wants to pr oceed. Therefore, was scheduled to have repeat colonoscopy in a.m. along with esophagogastroduodenos copy. 2. Can hold off transfusion for now as patient is stable. 3. Pending endoscopic result, this will dictate whether long-term anticoagulation with Xarelto would be beneficial to the patient in view of his history of atrial fibrillation and previous history of C VA.
--- NOTE | 2017-09-29 13:52 | PDOC.PN ---
- Subjective Encounter Start Date: 09/29/17 Encounter Start Time: 13:40 Subjective: f/u for suspected GI bleed s/p 2u PRBC's. Hx of GI bleeds with AVM and -: gastric ulcers s/p cautery and hx of Xarelto/ASA. No current complaints. -: Planning EGD/colonoscopy. - Objective Resuscitation Status: Resuscitation Status FULL:Full Resuscitation MAR Reviewed: Yes Vital Signs & Weight: Vital Signs (12 hours) Temp Pulse Pulse Pulse Pulse Resp BP 09/29/17 11:00 80 90 92 136/63 09/29/17 10:55 98.1 F 76 14 09/29/17 08:49 87 09/29/17 08:42 98.1 F 76 14 09/29/17 04:00 97.6 F 83 18 BP BP BP Pulse Ox Pulse Ox Pulse Ox 09/29/17 11:00 149/73 H 143/64 H 100 100 09/29/17 10:55 155/71 H 96 09/29/17 08:49 09/29/17 08:42 139/64 96 09/29/17 04:00 133/58 L 93 L Weight Weight 225 lb 9.6 oz I&O: 09/28/17 09/29/17 09/30/17 06:59 06:59 06:59 Intake Total 1640 Balance 1640 Result Diagrams: 09/29/17 04:04 09/29/17 04:04 Additional Labs: Accuchecks 09/29/17 09/29/17 09/28/17 10:57 05:43 20:50 POC Glucose 215 H 186 H 132 H Microbiology 09/28/17 16:20 Stool - Pending Stool Occult Blood (DANISH) - Final Laboratory Tests 07/31/17 07/31/17 09/21/17 14:06 22:13 03:49 Hgb 7.8 L 7.9 L Creatinine 1.37 H 09/22/17 09/23/17 09/28/17 04:19 05:50 15:46 Hgb Creatinine 1.37 H 1.47 H 1.55 H EKG Reviewed by me: Yes (Tele - A-fib in 70's(chronic)) Phys Exam - Physical Examination Constitutional: NAD HEENT: PERRLA, moist MMs, sclera anicteric, oral pharynx no lesions Neck: no nodes, no JVD, supple Respiratory: no wheezing, no rales, no rhonchi, clear to auscultation bilateral Cardiovascular: no significant murmur, no rub, gallop, irregular Gastrointestinal: soft, non-tender, no distention, positive bowel sounds Musculoskeletal: no edema, pulses present L hemiplegia(chronic) Psychiatric: normal affect, A&O x 3 Skin: no rash, normal turgor, cap refill <2 seconds Dx/Plan (1) GI bleed Code(s): K92.2 - GASTROINTESTINAL HEMORRHAGE, UNSPECIFIED Status: Acute Comment: Suspected upper source, EGD/colonoscopy planned for 09/30/17, avoid all NSAIDs and anticoagulation, Protonix daily (2) Acute blood loss anemia Code(s): D62 - ACUTE POSTHEMORRHAGIC ANEMIA Status: Acute Comment: Serial H/ H assessment, GI prophylaxis, see #1 above (3) HORTENCIA (acute kidney injury) Code(s): N17.9 - ACUTE KIDNEY FAILURE, UNSPECIFIED Status: Acute Comment: ? 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
[2017-09-29] MEDS ORDERED: GoLYTELY 4,000 ml Bottle PO SCH (18:00)
[2017-09-30 05:19] LABS: Anion Gap 11 mmol/L (10-20); BUN (Urea Nitrogen) 24 mg/dL (8.4-25.7); Calc. Creatinine Clearance 70 mL/min (70-130); Calcium 8.4 mg/dL (7.8-10.44); Carbon Dioxide 30 mmol/L (23-31); Chloride 103 mmol/L (98-107); Estimated GFR-MDRD 70; Glucose 80 mg/dL (83-110); Potassium 3.5 mmol/L (3.5-5.1); Sodium 140 mmol/L (136-145)
[2017-09-30 06:00] LABS: Anisocytosis SLIGHT = 6-15 cells (100X) (0-5/hpf); Band 2 % (5-11); Eosinophils 3 % (0-10); Hemoglobin 6.6 g/dL (14.0-18.0); Hypochromia SLIGHT = 6-15 cells (100X) (0-5/hpf); Lymphocytes 12 % (21-51); MDiff Complete? YES; Mean Corpuscular Hemoglobin 27.6 pg (27.0-31.0); Mean Corpuscular Volume 86.3 fl (80.0-94.0); Mean Platelet Volume 7.9 fL (7.4-10.4); Monocytes 5 % (0-10); Neutrophil 78 % (42-75); Platelet Count 465 thou/uL (130-400); Polychromasia SLIGHT = 2-3 cells (100X) (0-2/hpf); RBC Distribution Width 17.8 % (11.5-14.5); Red Blood Cell (RBC) Count 2.39 mill/uL (4.70-6.10); Target Cells SLIGHT = 2-5 cells (100X) (0-1/hpf); White Blood Cell (WBC) Count 11.3 thou/uL (4.8-10.8)
[2017-09-30] MEDS: Diltiazem HCl SR 60 mg Capsule PO SCH (07:58)
[2017-09-30] MEDS: Amiodarone 200 MG TAB PO SCH (07:58)
[2017-09-30] MEDS: carBAMazepine 200 MG TAB PO SCH ×3 (07:58→22:05)
[2017-09-30] MEDS: Amlodipine 5 MG TAB PO SCH (07:58)
[2017-09-30] MEDS: Furosemide 20 MG TAB PO SCH (07:59)
[2017-09-30] MEDS: Ferrous Gluconate 324 MG TAB PO SCH (07:59)
[2017-09-30] MEDS: Insulin Glargine 18 UNITS in Pre-Filled Syringe 1 EACH SC SCH ×2 (07:59→22:25)
[2017-09-30] MEDS: Multivitamin W/ Minerals 1 TAB PO SCH (07:59)
[2017-09-30] MEDS: Docusate 100 MG CAP PO SCH ×2 (07:59→22:05)
[2017-09-30] MEDS: Spironolactone 25 MG TAB PO SCH (08:00)
[2017-09-30] MEDS: Pioglitazone HCl 15 MG TAB PO SCH (08:00)
--- NOTE | 2017-09-30 11:03 | PDOC.PN ---
- Subjective Encounter Start Date: 09/30/17 Encounter Start Time: 11:00 Subjective: f/u for GI bleed s/p 2u PRBC's. Planning on EGD/colonoscopy today. No new -: complaints. Nsg reported blood in stool this am. - Objective Resuscitation Status: Resuscitation Status FULL:Full Resuscitation MAR Reviewed: Yes Vital Signs & Weight: Vital Signs (12 hours) Temp Pulse Resp BP Pulse Ox 09/30/17 07:58 90 09/30/17 07:45 98.8 F 90 18 145/67 H 95 09/30/17 03:14 99.0 F 81 17 150/63 H 93 L Weight Weight 224 lb 4.8 oz I&O: 09/29/17 09/30/17 10/01/17 06:59 06:59 06:59 Intake Total 1640 3000 Balance 1640 3000 Result Diagrams: 09/30/17 04:14 09/30/17 04:14 Additional Labs: Accuchecks 09/30/17 09/30/17 09/29/17 10:36 06:35 21:18 POC Glucose 110 115 H 116 H 09/29/17 09/29/17 16:36 10:57 POC Glucose 141 H 215 H Microbiology 09/28/17 16:20 Stool - Pending Stool Occult Blood (DANISH) - Final Laboratory Tests 07/31/17 07/31/17 09/21/17 14:06 22:13 03:49 Hgb 7.8 L 7.9 L Plt Count Creatinine 1.37 H 09/22/17 09/23/17 09/28/17 04:19 05:50 15:46 Hgb 6.3 L Plt Count 533 H Creatinine 1.37 H 1.47 H 09/28/17 09/29/17 15:46 04:04 Hgb 6.9 L Plt Count 439 H Creatinine 1.55 H EKG Reviewed by me: Yes (Tele - A-fib in 's) Phys Exam - Physical Examination Constitutional: NAD HEENT: PERRLA, moist MMs, sclera anicteric, oral pharynx no lesions Neck: no nodes, no JVD, supple, full ROM Respiratory: no wheezing, no rales, no rhonchi, clear to auscultation bilateral Cardiovascular: no significant murmur, no rub, gallop, irregular Gastrointestinal: soft, non-tender, no distention, positive bowel sounds Musculoskeletal: no edema, pulses present L hemiparesis(chronic), alert, responsive Psychiatric: normal affect, A&O x 3 Skin: no rash, normal turgor, cap refill <2 seconds Dx/Plan (1) GI bleed Code(s): K92.2 - GASTROINTESTINAL HEMORRHAGE, UNSPECIFIED Status: Acute Comment: Suspected upper source, EGD/colonoscopy planned for 09/30/17, avoid all NSAIDs and anticoagulation, Protonix daily (2) Acute blood loss anemia Code(s): D62 - ACUTE POSTHEMORRHAGIC ANEMIA Status: Acute Comment: Serial H/ H assessment, GI prophylaxis, see #1 above (3) HORTENCIA (acute kidney injury) Code(s): N17.9 - ACUTE KIDNEY FAILURE, UNSPECIFIED Status: Acute Comment: ? 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
[2017-09-30] MEDS ORDERED: Lidocaine 1% PF 5 ML VIAL ONE (13:09)
[2017-09-30] MEDS ORDERED: PROPOFOL 200 MG/20 ML VIAL ONE (13:09)
[2017-09-30] MEDS ORDERED: Midazolam HCl 2 mg/2 ml Vial ONE (13:14)
[2017-09-30] MEDS ORDERED: Promethazine HCl 25 MG/ML VIAL SLOW IVP PRN (13:51)
[2017-09-30] MEDS ORDERED: Ondansetron HCl/PF 4 MG/2 ML Vial IVP PRN (13:51)
[2017-09-30] MEDS ORDERED: Promethazine HCl 25 MG/ML VIAL IM PRN (13:51)
--- NOTE | 2017-09-30 14:13 | OP ---
DATE OF PROCEDURE: 09/30/2017 SURGEON: Dr. Dajuan Hurt PREOPERATIVE DIAGNOSIS: Gastrointestinal bleed. PROCEDURE: After informed consent was obtained, the patient placed in the left lateral decubitus pos ition. Anesthesia was administered per the Anesthesia Department. Forward viewing endoscope was ins erted into the esophagus under direct visualization with ease and passed to the second portion of the duodenum with ease. Second portion of the duodenum and duodenal bulb were normal. The pylorus was normal. 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 No active bleeding was seen. This was treated with argon plasma configuration management architect at a setting of 25, pu lsed with 2 second at a flow rate of 0.8. Good cautery was obtained. Retroflexion in the stomach wa s normal. The esophagus was normal throughout. ASSESSMENT: 1. 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 2. Otherwise, normal esophagogastroduodenoscopy. RECOMMENDATIONS: 1. Continue proton pump inhibitor. 2. Proceed with colonoscopy. PROCEDURE: After informed consent was obtained, the patient placed in the left lateral decubitus pos ition. Anesthesia administered per the Anesthesia Department. Forward viewing endoscope was inserte d into the rectum after perianal inspection and rectal exam were normal. It was passed to the cecum with some difficulty secondary to looping. The prep was good to fair. There was a large amount of o ld blood throughout the colon. The terminal ileum could not be entered. The ascending, transverse, descending, sigmoid, and rectum were normal. No actively bleeding sites were noted. Areas that were washed clean of blood, there was no reaccumulation of blood. ASSESSMENT: Normal colonoscopy - old blood throughout the colon. RECOMMENDATIONS: 1. Gastrointestinal bleeding scan. 2. Continue proton pump inhibitor. 3. I would not consider this patient a candidate for Xarelto or Eliquis or those types of medication s in the future.
--- NOTE | 2017-09-30 18:14 | NM ---
NUCLEAR MEDICINE BLEEDING SCAN: 09/30/2017 PROVIDED CLINICAL HISTORY: Anemia. RADIOPHARMACEUTICAL: Technetium 99m labeled RBCs 27 millicuries IV. FINDINGS: There is a focal area of radiotracer accumulation within the left upper quadrant, initially apparent at the 37 minute image, which demonstrates progressive migration in a distribution suggestive of smal l bowel. No additional definite radiotracer accumulation is evident. IMPRESSION: Positive for active gastrointestinal bleed. The initial radiotracer accumulation is in the left uppe r quadrant, and the distribution is most suggestive of small bowel. POS: DIRK
[2017-09-30] MEDS ORDERED: Chloraseptic Spray 180 ml Bottle PO PRN (21:13)
[2017-10-01] MEDS: HumaLOG 300 UNITS/3 ML VIAL SC PRN (07:15)
[2017-10-01] MEDS: Amlodipine 5 MG TAB PO SCH (09:33)
[2017-10-01] MEDS: Spironolactone 25 MG TAB PO SCH (09:33)
[2017-10-01] MEDS: carBAMazepine 200 MG TAB PO SCH ×3 (09:33→20:55)
[2017-10-01] MEDS: Pioglitazone HCl 15 MG TAB PO SCH (09:34)
[2017-10-01] MEDS: Diltiazem HCl SR 60 mg Capsule PO SCH (09:34)
[2017-10-01] MEDS: Amiodarone 200 MG TAB PO SCH (09:34)
[2017-10-01] MEDS: Multivitamin W/ Minerals 1 TAB PO SCH (09:35)
[2017-10-01] MEDS: Insulin Glargine 18 UNITS in Pre-Filled Syringe 1 EACH SC SCH ×2 (09:35→20:51)
[2017-10-01] MEDS: Ferrous Gluconate 324 MG TAB PO SCH (09:35)
[2017-10-01] MEDS: Furosemide 20 MG TAB PO SCH (09:35)
[2017-10-01] MEDS: Docusate 100 MG CAP PO SCH ×2 (09:37→20:55)
--- NOTE | 2017-10-01 12:48 | PDOC.PN ---
- Subjective Encounter Start Date: 10/01/17 Encounter Start Time: 09:40 Pt seen for followup re: acute blood loss anemia. Denies chest pain, shortness of breath, fevers or chills. - Objective Resuscitation Status: Resuscitation Status FULL:Full Resuscitation MAR Reviewed: Yes Vital Signs & Weight: Vital Signs (12 hours) Temp Pulse Pulse Resp BP BP Pulse Ox 10/01/17 11:00 98.9 F 78 16 149/69 H 90 L 10/01/17 09:07 79 150/72 H 10/01/17 08:00 98.6 F 84 16 96 10/01/17 07:46 98.6 F 84 16 137/73 96 10/01/17 04:54 99.0 F 76 22 H 146/52 H 100 10/01/17 01:12 98.4 F 96 18 149/75 H 92 L Pulse Ox 10/01/17 11:00 10/01/17 09:07 92 L 10/01/17 08:00 10/01/17 07:46 10/01/17 04:54 10/01/17 01:12 Weight Weight 220 lb 8 oz I&O: 09/30/17 10/01/17 10/02/17 06:59 06:59 06:59 Intake Total 3000 400 Balance 3000 400 Result Diagrams: 09/30/17 04:14 09/30/17 04:14 Additional Labs: Accuchecks 10/01/17 10/01/17 10/01/17 11:21 09:44 04:26 POC Glucose 191 H 179 H 172 H 09/30/17 22:23 POC Glucose 196 H Labs reviewed by me Phys Exam - Physical Examination Obese HEENT: moist MMs, sclera anicteric, oral pharynx no lesions, 2+ tonsils Neck: no nodes, no JVD, supple, full ROM Respiratory: no wheezing, no rales, no rhonchi, clear to auscultation bilateral Cardiovascular: no rub, irregular S1, S2 Gastrointestinal: soft, non-tender, no distention, positive bowel sounds Musculoskeletal: edema present Neurological: moves all 4 limbs Psychiatric: normal affect Deviation from normal: Oriented to person and place, not to time Dx/Plan (1) Acute blood loss anemia Code(s): D62 - ACUTE POSTHEMORRHAGIC ANEMIA Status: Acute Comment: Monitor blood counts (2) GI bleed Code(s): K92.2 - GASTROINTESTINAL HEMORRHAGE, UNSPECIFIED Status: Acute Comment: s/p argon plasma coagulation of gastric antral vascular ectasia (3) Afib Code(s): I48.91 - UNSPECIFIED ATRIAL FIBRILLATION Status: Chronic Comment: stable (4) Chronic combined systolic (congestive) and diastolic (congestive) heart failure Code(s): I50.42 - CHRONIC COMBINED SYSTOLIC AND DIASTOLIC HRT FAIL Status: Chronic Comment: stable (5) Diabetes mellitus type 2 Code(s): E11.9 - TYPE 2 DIABETES MELLITUS WITHOUT COMPLICATIONS Status: Chronic Comment: continue insulin sliding scale and accuchecks - Plan * . Review of Systems - Review of Systems Constitutional: negative: fever, chills, sweats, weakness, malaise Respiratory: negative: Cough, Shortness of Breath, SOB with Excertion, Pleuritic Pain, Wheezing Cardiovascular: negative: chest pain, palpitations, orthopnea, paroxysmal nocturnal dyspnea, edema, light headedness Gastrointestinal: negative: Nausea, Vomiting, Abdominal Pain, Diarrhea, Constipation, Melena, Hematochezia Genitourinary: negative: Dysuria, Frequency, Incontinence, Hematuria, Retention - Medications/Allergies Allergies/Adverse Reactions: Allergies Allergy/AdvReac Type Severity Reaction Status Date / Time No Known Allergies Allergy Verified 09/28/17 21:45 Medications: Current Medications Acetaminophen (Tylenol) 650 mg PO Q4H PRN PRN Reason: Headache/Fever or Pain Acetaminophen (Tylenol) 650 mg OR Q4H PRN PRN Reason: Headache/Fever or Pain Acetaminophen/Codeine Phosphate (Tylenol #3) 1 tab PO Q6HR PRN PRN Reason: Pain Amiodarone HCl (Cordarone) 100 mg PO DAILY [facility] Last Admin: 10/01/17 09:34 Dose: 100 mg Amlodipine Besylate (Norvasc) 10 mg PO DAILY [facility] Last Admin: 10/01/17 09:33 Dose: 10 mg Bisacodyl (Dulcolax) 10 mg PO DAILYPRN PRN PRN Reason: Constipation Bisacodyl (Dulcolax) 5 mg PO DAILY PRN PRN Reason: Constipation Carbamazepine (Tegretol) 200 mg PO TID [facility] Last Admin: 10/01/17 09:33 Dose: 200 mg Dextrose/Water (Dextrose 50%) 25 gm SLOW IVP PRN PRN PRN Reason: Hypoglycemia Diltiazem HCl (Cardizem Sr) 120 mg PO DAILY [facility] Last Admin: 10/01/17 09:34 Dose: 120 mg Docusate Sodium (Colace) 100 mg PO BID [facility] Last Admin: 10/01/17 09:37 Dose: 100 mg Ferrous Gluconate (Fergon) 324 mg PO DAILY [facility] Last Admin: 10/01/17 09:35 Dose: 324 mg Furosemide (Lasix) 20 mg PO DAILY [facility] Last Admin: 10/01/17 09:35 Dose: 20 mg Glucagon (Glucagon) 1 mg IM PRN PRN PRN Reason: Hypoglycemia Dextrose/Water (D5w) 1,000 mls @ 0 mls/hr IV .Q0M PRN; As Directed PRN Reason: Hypoglycemia Insulin Glargine 18 units/ (Miscellaneous Medication) 0.18 mls @ 0 mls/hr SC BID [facility] Last Admin: 10/01/17 09:35 Dose: 0.18 mls Insulin Human Lispro (Humalog) 0 units SC .BEDTIME SLIDING SC PRN PRN Reason: Bedtime Correctional Scale Insulin Human Lispro (Humalog) 0 units SC .MILD SLIDING SCALE PRN PRN Reason: Mild Correctional Scale Last Admin: 10/01/17 07:15 Dose: 2 units Iron/Minerals/Multivitamins (Theragran M) 1 tab PO DAILY [facility] Last Admin: 10/01/17 09:35 Dose: 1 tab Loratadine (Claritin) 10 mg PO DAILY PRN PRN Reason: Allergies Ondansetron HCl (Zofran Odt) 4 mg PO Q6H PRN PRN Reason: Nausea/Vomiting Ondansetron HCl (Zofran) 4 mg IVP Q6H PRN PRN Reason: Nausea/Vomiting Pantoprazole Sodium (Protonix) 40 mg PO BID [facility] Last Admin: 10/01/17 09:35 Dose: 40 mg Phenol (Chloraseptic Alpha 180 Ml Bot) 0 ml PO TIDPRN PRN PRN Reason: SORE THROAT Last Admin: 09/30/17 22:13 Dose: 2 spr Pioglitazone HCl (Actos) 15 mg PO DAILY [facility] Last Admin: 10/01/17 09:34 Dose: 15 mg Sodium Chloride (Flush - Normal Saline) 10 ml IVF PRN PRN PRN Reason: Saline Flush Last Admin: 10/01/17 09:38 Dose: 10 ml Spironolactone (Aldactone) 25 mg PO DAILY [facility] Last Admin: 10/01/17 09:33 Dose: 25 mg Tramadol HCl (Ultram) 50 mg PO Q6HR PRN PRN Reason: Pain
--- NOTE | 2017-10-01 16:24 | PRG ---
DATE OF SERVICE: 10/01/2017 REASON FOR CONSULTATION: Anemia SUBJECTIVE: The patient is doing well overnight with no acute events or problems. He has had no fur ther episodes of melena or GI bleeding since the procedure yesterday. In fact, he has had no bowel m ovements at all. Currently, denies any nausea, vomiting, fevers, chills, melena, hematochezia or hem atemesis. PHYSICAL EXAMINATION: VITAL SIGNS: Temperature 98.9, pulse 78, blood pressure 149/69, respiratory rate 16, satting 96% on room air. LABORATORY DATA: No current laboratory data is available for review. IMAGING DATA: The patient underwent both upper and lower endoscopy on 09/30/2017 with the upper endo scopy showing gastric antral vascular ectasias within the gastric antrum that were not bleeding upon inspection. This was intervened upon with argon plasma coagulation with good hemostasis achieved. C olonoscopy performed after the upper endoscopy showed a large amount of old blood throughout the colo n, but no discernible source of GI bleeding was seen during the colonoscopy. ASSESSMENT AND PLAN: The patient is an 81-year-old -[place] gentleman with past medical hist ory of diabetes, hypertension, atrial fibrillation on anticoagulation, cerebrovascular accident, raisa nary artery disease with previous myocardial infarction and congestive heart failure, presenting with chronic anemia. Chronic anemia: The patient presenting with a history of chronic anemia characterized by slow down t rending on his H&H on multiple previous hospitalizations. 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 Further tagged red cell scans were negative for obvious source of GI bleeding; however, he underwent both upper and lower endoscopy on 09/30/2017 with finding of gastric antral vascular ectasias, which could potentially generate the melenic stools that he had been having. Currently, he is without any further episodes of melena, but no additional H&H is available for review today to determine if acti ve gastrointestinal bleeding is still ongoing. RECOMMENDATIONS: 1. We would continue to trend H&H daily and transfuse as necessary to maintain an H&H of 7/21. 2. We would continue to monitor clinically for signs of active gastrointestinal bleeding. 3. 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 Given his recurrent episodes of melenic type stools and downtren ding H&H while on anticoagulation, further anticoagulation is ill advised at this time. We will continue to follow. Please call with any questions.
[2017-10-02 05:48] LABS: #Basophils 0.1 thou/uL (0.0-0.2); #Eosinphils 0.1 thou/uL (0.0-0.7); #Neutrophils 11.1 thou/uL (1.40-6.50); %Basophils 0.8 % (0.0-1.0); %Eosinophils 0.7 % (0.0-10.0); %Lymphocytes 7.8 % (21.0-51.0); %Monocytes 7.3 % (0.0-10.0); %Neutrophils 83.4 % (42.0-75.0); Hemoglobin 5.6 g/dL (14.0-18.0); Mean Corpuscular HGB CONC 30.7 g/dL (32.0-36.0); Mean Platelet Volume 7.1 fL (7.4-10.4); Platelet Count 506 thou/uL (130-400); RBC Distribution Width 18.3 % (11.5-14.5); Red Blood Cell (RBC) Count 2.07 mill/uL (4.70-6.10); White Blood Cell (WBC) Count 13.3 thou/uL (4.8-10.8)
[2017-10-02 05:57] LABS: Anisocytosis SLIGHT = 6-15 cells (100X) (0-5/hpf); Hypochromia SLIGHT = 6-15 cells (100X) (0-5/hpf); Polychromasia SLIGHT = 2-3 cells (100X) (0-2/hpf)
[2017-10-02 05:58] LABS: PLT Morphology Comment Appears Increased
[2017-10-02] MEDS: Insulin Glargine 18 UNITS in Pre-Filled Syringe 1 EACH SC SCH ×2 (09:00→20:51)
[2017-10-02] MEDS: Multivitamin W/ Minerals 1 TAB PO SCH (09:00)
[2017-10-02] MEDS: Pioglitazone HCl 15 MG TAB PO SCH (09:00)
[2017-10-02] MEDS: Docusate 100 MG CAP PO SCH ×2 (09:01→20:50)
[2017-10-02] MEDS: Ferrous Gluconate 324 MG TAB PO SCH (09:01)
[2017-10-02] MEDS: Amiodarone 200 MG TAB PO SCH (09:01)
[2017-10-02] MEDS: carBAMazepine 200 MG TAB PO SCH ×3 (09:01→20:50)
[2017-10-02] MEDS: Amlodipine 5 MG TAB PO SCH (09:03)
[2017-10-02] MEDS: Diltiazem HCl SR 60 mg Capsule PO SCH (09:03)
[2017-10-02] MEDS: Furosemide 20 MG TAB PO SCH (09:04)
[2017-10-02] MEDS: Spironolactone 25 MG TAB PO SCH (09:04)
--- NOTE | 2017-10-02 13:40 | PRG ---
DATE OF SERVICE: 10/02/2017 SUBJECTIVE: The patient is feeling well. He is eating well. He did have black stools. According t o nursing personnel, he did get a unit of blood this morning. OBJECTIVE: VITAL SIGNS: Temperature 98.3, pulse 103, respiratory rate 16, blood pressure 144/94. HEENT: Unremarkable. NECK: Supple. CHEST: Clear. CARDIOVASCULAR: Regular rate and rhythm. ABDOMEN: Benign. LABORATORY DATA: Shows hemoglobin of 5.6, hematocrit of 18.2, platelet count 506. ASSESSMENT: 1. Gastrointestinal bleed. 2. Gastric antral vascular ectasias. 3. Anemia secondary to gastrointestinal blood loss. 4. Coronary artery disease. RECOMMENDATIONS: 1. Discontinue all anticoagulation. 2. Agree with transfusion. 3. Continue to monitor H&H. 4. Continue proton pump inhibitor.
--- NOTE | 2017-10-02 15:53 | PDOC.PN ---
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 -: Total 3u PRBC's given during hospital stay. No new complaints. Feels -: ok overall. - Objective Resuscitation Status: Resuscitation Status FULL:Full Resuscitation Vital Signs & Weight: Vital Signs (12 hours) Temp Pulse Resp BP BP BP Pulse Ox 10/02/17 09:03 103 H 144/94 H 10/02/17 08:00 98.3 F 103 H 16 94 L 10/02/17 07:35 98.3 F 103 H 18 129/71 93 L 10/02/17 04:00 99.6 F 80 20 151/78 H 100 Weight Weight 218 lb 4.8 oz I&O: 10/01/17 10/02/17 10/03/17 06:59 06:59 06:59 Intake Total 900 0 Balance 900 0 Result Diagrams: 10/02/17 03:44 09/30/17 04:14 Additional Labs: Accuchecks 10/02/17 10/02/17 10/01/17 11:41 04:48 20:20 POC Glucose 163 H 131 H 141 H 10/01/17 16:25 POC Glucose 155 H Microbiology 09/28/17 16:20 Stool - Pending Stool Occult Blood (DANISH) - Final Laboratory Tests 07/31/17 07/31/17 09/21/17 14:06 22:13 03:49 WBC Hgb 7.8 L 7.9 L Plt Count Creatinine 1.37 H 09/22/17 09/23/17 09/28/17 04:19 05:50 15:46 WBC Hgb 6.3 L Plt Count 533 H Creatinine 1.37 H 1.47 H 09/28/17 09/29/17 09/30/17 15:46 04:04 04:14 WBC 9.9 11.3 H Hgb 6.9 L 6.6 L Plt Count 439 H Creatinine 1.55 H Radiology Reviewed by me: Yes (EGD - GAVE with plasma coagulation) Phys Exam - Physical Examination Constitutional: NAD HEENT: PERRLA, moist MMs, sclera anicteric, oral pharynx no lesions Neck: no nodes, no JVD, supple, full ROM Respiratory: no wheezing, no rales, no rhonchi, clear to auscultation bilateral S1, S2 Cardiovascular: no significant murmur, no rub, gallop, irregular Gastrointestinal: soft, non-tender, no distention, positive bowel sounds Musculoskeletal: no edema, pulses present L hemiparesis(chronic) Neurological: normal sensation Psychiatric: normal affect, A&O x 3 Skin: no rash, normal turgor, cap refill <2 seconds Dx/Plan (1) GI bleed Code(s): K92.2 - GASTROINTESTINAL HEMORRHAGE, UNSPECIFIED Status: Acute Comment: s/p argon plasma coagulation of gastric antral vascular ectasia, H/H down, transfusing 3rd unit PRBC's, Protonix 40mg BID (2) Acute blood loss anemia Code(s): D62 - ACUTE POSTHEMORRHAGIC ANEMIA Status: Acute Comment: Total 3u PRBC's, serial H/H (3) HORTENCIA (acute kidney injury) Code(s): N17.9 - ACUTE KIDNEY FAILURE, UNSPECIFIED Status: Acute Comment: ? 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
[2017-10-03 05:16] LABS: #Basophils 0.1 thou/uL (0.0-0.2); #Eosinphils 0.2 thou/uL (0.0-0.7); #Lymphocytes 1.1 thou/uL (1.20-3.40); #Monocytes 1.1 thou/uL (0.11-0.59); #Neutrophils 12.2 thou/uL (1.40-6.50); %Basophils 0.5 % (0.0-1.0); %Eosinophils 1.1 % (0.0-10.0); %Lymphocytes 7.7 % (21.0-51.0); %Monocytes 7.6 % (0.0-10.0); %Neutrophils 83.1 % (42.0-75.0); Hemoglobin 6.8 g/dL (14.0-18.0); Mean Corpuscular HGB CONC 31.8 g/dL (32.0-36.0); Mean Platelet Volume 6.9 fL (7.4-10.4); Platelet Count 485 thou/uL (130-400); RBC Distribution Width 16.6 % (11.5-14.5); Red Blood Cell (RBC) Count 2.43 mill/uL (4.70-6.10); White Blood Cell (WBC) Count 14.6 thou/uL (4.8-10.8)
[2017-10-03 06:15] VITALS: BMI 35.7
[2017-10-03] MEDS: Docusate 100 MG CAP PO SCH ×2 (08:13→20:18)
[2017-10-03] MEDS: Pioglitazone HCl 15 MG TAB PO SCH (08:24)
[2017-10-03] MEDS: Amiodarone 200 MG TAB PO SCH (08:24)
[2017-10-03] MEDS: Furosemide 20 MG TAB PO SCH (08:27)
[2017-10-03] MEDS: Diltiazem HCl SR 60 mg Capsule PO SCH (08:27)
[2017-10-03] MEDS: Ferrous Gluconate 324 MG TAB PO SCH (08:28)
[2017-10-03] MEDS: Multivitamin W/ Minerals 1 TAB PO SCH (08:28)
[2017-10-03] MEDS: Amlodipine 5 MG TAB PO SCH (08:28)
[2017-10-03] MEDS: Spironolactone 25 MG TAB PO SCH (08:28)
[2017-10-03] MEDS: carBAMazepine 200 MG TAB PO SCH ×3 (08:29→20:18)
[2017-10-03] MEDS: Insulin Glargine 18 UNITS in Pre-Filled Syringe 1 EACH SC SCH ×2 (08:29→20:22)
--- NOTE | 2017-10-03 11:42 | PRG ---
DATE OF SERVICE: 10/03/2017 SUBJECTIVE: The patient is feeling well. He is eating well. He had 2 bowel movements yesterday jonna t were somewhat dark, but no bowel movements since. OBJECTIVE: VITAL SIGNS: Temperature 98.1, pulse 86, respiratory rate 16, blood pressure 149/68. CHEST: Clear. CARDIOVASCULAR: Regular rate and rhythm. ABDOMEN: Benign. LABORATORY DATA: Shows a white blood cell count of 14.6 with a hemoglobin 6.8, hematocrit 21.4, plat elet count is 485. ASSESSMENT: 1. Gastrointestinal bleed. 2. Gastric antral vascular ectasias. 3. Anemia. 4. Coronary artery disease. RECOMMENDATIONS: 1. Continue off all anticoagulation. 2. May consider transfusing 1 more unit. 3. Continue proton pump inhibitor.
--- NOTE | 2017-10-03 19:36 | PDOC.PN ---
- Subjective Encounter Start Date: 10/03/17 Encounter Start Time: 19:35 Subjective: f/u for GI bleed due to GAVE s/p cautery. Transfused 4u total PRBC' s. -: States feeling ok overall. Appetite diminished and hard time eating without -: dentures. - Objective Resuscitation Status: Resuscitation Status FULL:Full Resuscitation MAR Reviewed: Yes Vital Signs & Weight: Vital Signs (12 hours) Temp Pulse Resp BP BP BP Pulse Ox 10/03/17 16:15 99.4 F 74 16 144/87 H 10/03/17 13:03 98.4 F 84 16 131/72 10/03/17 12:48 99.2 F 83 16 118/62 10/03/17 08:28 86 149/68 H 10/03/17 08:00 98.1 F 86 16 93 L Weight Weight 228 lb I&O: 10/02/17 10/03/17 10/04/17 06:59 06:59 06:59 Intake Total 900 850 350 Balance 900 850 350 Result Diagrams: 10/03/17 04:42 09/30/17 04:14 Additional Labs: Accuchecks 10/03/17 10/03/17 10/03/17 16:31 12:05 04:43 POC Glucose 202 H 166 H 123 H 10/02/17 19:39 POC Glucose 179 H Microbiology 09/28/17 16:20 Stool - Pending Stool Occult Blood (DANISH) - Final Laboratory Tests 07/31/17 07/31/17 09/21/17 14:06 22:13 03:49 WBC Hgb 7.8 L 7.9 L Plt Count Creatinine 1.37 H 09/22/17 09/23/17 09/28/17 04:19 05:50 15:46 WBC Hgb 6.3 L Plt Count 533 H Creatinine 1.37 H 1.47 H 09/28/17 09/29/17 09/30/17 15:46 04:04 04:14 WBC 9.9 11.3 H Hgb 6.9 L 6.6 L Plt Count 439 H Creatinine 1.55 H 10/02/17 03:44 WBC 13.3 H Hgb 5.6 L* Plt Count 506 H Creatinine Phys Exam - Physical Examination Constitutional: NAD HEENT: PERRLA, moist MMs, sclera anicteric, oral pharynx no lesions Neck: no nodes, no JVD, supple, full ROM Respiratory: no wheezing, no rales, no rhonchi, clear to auscultation bilateral S1, S2 Cardiovascular: RRR, no significant murmur, no rub, gallop Gastrointestinal: soft, non-tender, no distention, positive bowel sounds Musculoskeletal: no edema, pulses present L hemiparesis(chronic) Neurological: normal sensation Psychiatric: normal affect, A&O x 3 Skin: no rash, normal turgor, cap refill <2 seconds Dx/Plan (1) GI bleed Code(s): K92.2 - GASTROINTESTINAL HEMORRHAGE, UNSPECIFIED Status: Acute Comment: s/p argon plasma coagulation of gastric antral vascular ectasia, H/H down, total 4u PRBC's transfused during hospital stay, no anticoagulation, Protonix 40mg BID (2) Acute blood loss anemia Code(s): D62 - ACUTE POSTHEMORRHAGIC ANEMIA Status: Acute Comment: Total 4u PRBC's, serial H/H (3) HORTENCIA (acute kidney injury) Code(s): N17.9 - ACUTE KIDNEY FAILURE, UNSPECIFIED Status: Acute Comment: ? 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
[2017-10-04 05:10] LABS: Hemoglobin 8.2 g/dL (14.0-18.0)
[2017-10-04] MEDS: Docusate 100 MG CAP PO SCH ×2 (07:48→22:46)
[2017-10-04] MEDS: Multivitamin W/ Minerals 1 TAB PO SCH (07:48)
[2017-10-04] MEDS: Spironolactone 25 MG TAB PO SCH (07:48)
[2017-10-04] MEDS: Diltiazem HCl SR 60 mg Capsule PO SCH (07:48)
[2017-10-04] MEDS: carBAMazepine 200 MG TAB PO SCH ×3 (07:49→22:45)
[2017-10-04] MEDS: Amiodarone 200 MG TAB PO SCH (07:49)
[2017-10-04] MEDS: Ferrous Gluconate 324 MG TAB PO SCH (07:49)
[2017-10-04] MEDS: Amlodipine 5 MG TAB PO SCH (07:50)
[2017-10-04] MEDS: Furosemide 20 MG TAB PO SCH (07:51)
[2017-10-04] MEDS: Pioglitazone HCl 15 MG TAB PO SCH (07:58)
[2017-10-04] MEDS: Insulin Glargine 18 UNITS in Pre-Filled Syringe 1 EACH SC SCH ×2 (08:00→22:46)
--- NOTE | 2017-10-04 09:30 | PRG ---
DATE OF SERVICE: 10/04/2017 SUBJECTIVE: The patient denies any bowel movements today. He is eating well, having no GI complaints. PHYSICAL EXAMINATION: VITAL SIGNS: Temperature 98.1, pulse 85, respiratory rate 20, blood pressure 98/58. CHEST: Clear. CARDIOVASCULAR: Regular rate and rhythm. ABDOMEN: Benign. LABORATORY DATA: Shows hemoglobin of 8.2, hematocrit 26.2. ASSESSMENT: 1. Gastrointestinal bleed. 2. Gastric antral vascular ectasias. 3. Anemia. 4. Coronary artery disease. RECOMMENDATIONS: 1. Continue off all anticoagulation. 2. Continue proton pump inhibitor. 3. Stable for discharge from gastrointestinal standpoint.
--- NOTE | 2017-10-04 15:13 | PDOC.PN ---
- Subjective Encounter Start Date: 10/04/17 Encounter Start Time: 15:10 Subjective: f/u for GI bleed secondary to gastric antral vascular ectasia s/p argon -: plasma coagulation. S/p 4u total PRBC's. - Objective Resuscitation Status: Resuscitation Status FULL:Full Resuscitation MAR Reviewed: Yes Vital Signs & Weight: Vital Signs (12 hours) Temp Pulse Resp BP BP Pulse Ox 10/04/17 10:56 98.2 F 78 22 H 133/67 97 10/04/17 08:00 98.1 F 85 20 98 10/04/17 07:50 85 98/58 L 10/04/17 07:37 98.1 F 85 20 98/58 L 98 Weight Weight 232 lb 12.8 oz I&O: 10/03/17 10/04/17 10/05/17 06:59 06:59 06:59 Intake Total 850 710 Balance 850 710 Result Diagrams: 10/04/17 04:03 09/30/17 04:14 Additional Labs: Accuchecks 10/04/17 10/04/17 10/03/17 11:00 05:22 20:24 POC Glucose 232 H 140 H 164 H 10/03/17 16:31 POC Glucose 202 H Microbiology 09/28/17 16:20 Stool - Pending Stool Occult Blood (DANISH) - Final Laboratory Tests 07/31/17 07/31/17 09/21/17 14:06 22:13 03:49 WBC Hgb 7.8 L 7.9 L Plt Count Creatinine 1.37 H 09/22/17 09/23/17 09/28/17 04:19 05:50 15:46 WBC Hgb 6.3 L Plt Count 533 H Creatinine 1.37 H 1.47 H 09/28/17 09/29/17 09/30/17 15:46 04:04 04:14 WBC 9.9 11.3 H Hgb 6.9 L 6.6 L Plt Count 439 H Creatinine 1.55 H 10/02/17 03:44 WBC 13.3 H Hgb 5.6 L* Plt Count 506 H Creatinine Phys Exam - Physical Examination Constitutional: NAD HEENT: PERRLA, moist MMs, sclera anicteric, oral pharynx no lesions Neck: no nodes, no JVD, supple, full ROM occasional rhonchi Respiratory: no wheezing, clear to auscultation bilateral S1, S2 Cardiovascular: RRR, no significant murmur, no rub, gallop Gastrointestinal: soft, non-tender, no distention, positive bowel sounds Musculoskeletal: no edema, pulses present L hemiparesis(chronic) Neurological: normal sensation Psychiatric: normal affect, A&O x 3 Skin: no rash, normal turgor, cap refill <2 seconds Dx/Plan (1) GI bleed Code(s): K92.2 - GASTROINTESTINAL HEMORRHAGE, UNSPECIFIED Status: Acute Comment: s/p argon plasma coagulation of gastric antral vascular ectasia, H/H stable, total 4u PRBC's transfused during hospital stay, no anticoagulation, Protonix 40mg BID (2) Acute blood loss anemia Code(s): D62 - ACUTE POSTHEMORRHAGIC ANEMIA Status: Acute Comment: Total 4u PRBC's, serial H/H (3) HORTENCIA (acute kidney injury) Code(s): N17.9 - ACUTE KIDNEY FAILURE, UNSPECIFIED Status: Acute Comment: ? 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
[2017-10-05 05:06] LABS: Hemoglobin 8.4 g/dL (14.0-18.0); Platelet Count 502 thou/uL (130-400)
[2017-10-05] MEDS: Multivitamin W/ Minerals 1 TAB PO SCH (09:07)
[2017-10-05] MEDS: Amlodipine 5 MG TAB PO SCH (09:07)
[2017-10-05] MEDS: carBAMazepine 200 MG TAB PO SCH (09:07)
[2017-10-05] MEDS: Ferrous Gluconate 324 MG TAB PO SCH (09:08)
[2017-10-05] MEDS: Docusate 100 MG CAP PO SCH (09:08)
[2017-10-05] MEDS: Furosemide 20 MG TAB PO SCH (09:08)
[2017-10-05] MEDS: Diltiazem HCl SR 60 mg Capsule PO SCH (09:08)
[2017-10-05] MEDS: Spironolactone 25 MG TAB PO SCH (09:08)
[2017-10-05] MEDS: Pioglitazone HCl 15 MG TAB PO SCH (09:08)
[2017-10-05] MEDS: Insulin Glargine 18 UNITS in Pre-Filled Syringe 1 EACH SC SCH (09:09)
[2017-10-05] MEDS: Amiodarone 200 MG TAB PO SCH (09:10)
--- NOTE | 2017-10-05 10:43 | DIS ---
DATE OF ADMISSION: 09/28/2017 DATE OF DISCHARGE: 10/05/2017 DISCHARGE DIAGNOSES: 1. Gastrointestinal bleed secondarily to #2. 2. Gastric antral vascular ectasia, status post argon plasma coagulation. 3. Acute blood loss anemia, status post total of 4 units of packed red blood cells. 4. Acute kidney injury, iatrogenic, improved. 5. Diabetes mellitus type 2, insulin-requiring, stable. 6. History of cerebrovascular accident with residual left hemiparesis. CONSULTATIONS: Dr. Hurt and Dr. Jeffrey with GI Service. PERTINENT LABORATORY DATA AND IMAGING DATA: Creatinine ranged between 1.21-1.55, estimated GFR rangi ng between 52-70. CBC showed a white blood cell count ranging between 9.9-14.6, hemoglobin ranged be tween 5.6-8.4, PT 16.0, INR 1.3, PTT 32.4. Stool Hemoccult on 09/28/2017 positive x1. GI nuclear bl eeding scan on 09/30/2017 showed positive study with accumulation of tracer in the left upper quadran t. HOSPITAL COURSE: Patient was admitted after presenting with acute drop in hemoglobin in the 6 range. The patient's history is significant with chronic anticoagulation with Xarelto and aspirin therapy with hemoglobin decreasing into the 6 range as stated previously. Stool Hemoccult was positive x1. The patient underwent evaluation by the GI Service. The patient received an initial 2 units of packe d red blood cells and was prepped for EGD and colonoscopy. The patient underwent EGD evaluation on 0 09/30/2017 showing gastric antral vascular ectasias, status post argon plasma coagulation. The patien t was continued on a proton pump inhibitor as well as IV fluids and monitored with serial hemoglobins . Colonoscopy was performed showing no evidence of acute bleed and old blood noted in the colon on e xam. Patient did require a total of 4 units of packed red blood cells during the hospital course wit h serial hemoglobin monitoring showing a decreasing value after EGD and plasma coagulation. The hao ent was discontinued off anticoagulation with recommendations to discontinue indefinitely. The patie nt was continued on Protonix 40 mg b.i.d. and overall remained clinically stable. The patient tolera ileana advancing diet without difficulty and exhibited no recurrence of active gastrointestinal blood lo ss. The patient overall remained clinically stable with current hemoglobin at the time of discharge 8.4. I have examined the patient at the time of discharge and discussed pertinent lab and followup s mary, at which patient verbalizes understanding and agreement with the plan. The patient is ready for discharge on 10/05/2017. DISCHARGE MEDICATIONS: 1. Tylenol #3 300/30 mg 1 tab p.o. q.6 hours p.r.n. 2. Amiodarone 100 mg 1 tab p.o. daily. 3. Norvasc 10 mg p.o. daily. 4. Enteric-coated aspirin 81 mg p.o. daily. 5. Dulcolax 5 mg p.o. daily p.r.n. 6. Tegretol 200 mg p.o. t.i.d. 7. Cardizem-SR 120 mg p.o. daily. 8. Ferrous gluconate 324 mg p.o. daily. 9. Lasix 20 mg p.o. daily. 10. Levemir 18 units subcutaneously b.i.d. 11. Claritin 10 mg p.o. daily. 12. Multivitamin 1 tab p.o. daily. 13. Protonix 40 mg p.o. b.i.d. 14. Actos 15 mg p.o. daily. 15. Spironolactone 25 mg p.o. daily. 16. Tramadol 50 mg p.o. q.6 hours p.r.n. FOLLOWUP: Patient to follow up with his primary care provider, Dr. Angel Suarez at [facility]. Patient may follow up with Dr. Laureano with GI Service and to call his office f or appointment time and date. CONDITION ON DISCHARGE: Stable. ACTIVITY: Ad alejandro. DIET: ADA. SPECIAL INSTRUCTIONS: Check CBC on 10/08/2017. CODE STATUS: FULL. DISPOSITION: Discharged to [facility] on 10/05/2017. Total time preparing and coordinating discharge is 35 minutes.
[2017-10-05 13:39] VITALS: BP 114/62; TEMP 98.1
--- NOTE | 2017-10-06 13:12 | EKG ---
Test Reason : Blood Pressure : / mmHG Vent. Rate : 072 BPM Atrial Rate : 075 BPM P-R Int : 000 ms QRS Dur : 084 ms QT Int : 364 ms P-R-T Axes : 000 028 005 degrees QTc Int : 398 ms Atrial fibrillation with premature ventricular or aberrantly conducted complexes Possible Lateral infarct , age undetermined Abnormal ECG Confirmed by BUDDY PIRES ([id number]), desk editor AMINA NEVAREZ ([id number]) on 10/06/2017 1:11:41 PM Referred By: Confirmed By:BUDDY PIRES
== END 2017-10-05 14:06 | DRG 378 ==
LOC: ERS 15:31 → 2NO 16:55 → T4-A 09-30 19:42
PROVIDERS: ADMIT Emergency Medicine; ATTEND Emergency Medicine
PROC: 30233N1 Transfusion of Nonautologous Red Blood Cells into Peripheral Vein, Percutaneous Approach (ICD-10-PCS; 2017-09-28)
PROC: 0W3P8ZZ Control Bleeding in Gastrointestinal Tract, Via Natural or Artificial Opening Endoscopic (ICD-10-PCS; principal; 2017-09-30)
PROC: 0DJD8ZZ Inspection of Lower Intestinal Tract, Via Natural or Artificial Opening Endoscopic (ICD-10-PCS; 2017-09-30)
DX: K31.811 Angiodysplasia of stomach and duodenum with bleeding (principal); D62 Acute posthemorrhagic anemia; N17.9 Acute kidney failure, unspecified; I69.354 Hemiplegia and hemiparesis following cerebral infarction affecting left non-dominant side; I50.42 Chronic combined systolic (congestive) and diastolic (congestive) heart failure; E11.9 Type 2 diabetes mellitus without complications; I11.0 Hypertensive heart disease with heart failure; I48.2 Chronic atrial fibrillation; I25.10 Atherosclerotic heart disease of native coronary artery without angina pectoris; I25.2 Old myocardial infarction; Z79.82 Long term (current) use of aspirin; Z79.4 Long term (current) use of insulin; Z79.899 Other long term (current) drug therapy
CPT/HCPCS: 36415; 36416; 36430; 78278; 80048; 80053; 82274; 85007; 85014; 85018; 85025; 85027; 85049; 85610; 85730; 86850; 86900; 86901; 93005; A9604; G8978-GP-CL; G8979-GP-CJ; G8987-GO-CM; G8988-GO-CM; G8989-GO-CM; J2001; J2250; J2704; P9016

== ENCOUNTER 2019-06-07 13:20 | Inpatient (IN) | payer MEDICARE, MEDICAID ==
--- NOTE | 2019-06-07 13:35 | CT ---
EXAM: CT brain without contrast HISTORY: Stroke with altered mental status. The stroke like symptoms have resolved. COMPARISON: None TECHNIQUE: Multiple contiguous axial images were obtained and a CT of the brain without contrast. FINDINGS: There are scattered hypodensities in the subcortical and periventricular white matter consi stent with small vessel ischemic disease. Encephalomalacia seen in the left occipital lobe. There is no evidence of hydrocephalus, intracranial hemorrhage, or extra-axial fluid collection. The calvarium and overlying soft tissues are unremarkable. The visualized paranasal sinuses and masto id air cells are well aerated. IMPRESSION: No evidence of acute intracranial abnormality Dr. Osborne notified of findings at 1:33 PM on 06/07/2019
[2019-06-07] MEDS ORDERED: Iopamidol-370 76% 500 ML 1 ML ONE (13:41)
[2019-06-07 13:51] LABS: #Basophils 0.1 thou/uL (0.0-0.2); #Eosinphils 0.2 thou/uL (0.0-0.7); #Lymphocytes 1.4 thou/uL (1.20-3.40); #Monocytes 0.4 thou/uL (0.11-0.59); #Neutrophils 5.4 thou/uL (1.40-6.50); %Basophils 0.9 % (0.0-1.0); %Eosinophils 2.5 % (0.0-10.0); %Lymphocytes 18.6 % (21.0-51.0); %Monocytes 5.6 % (0.0-10.0); %Neutrophils 72.4 % (42.0-75.0); Hemoglobin 13.2 g/dL (14.0-18.0); Mean Corpuscular HGB CONC 31.3 g/dL (32.0-36.0); Mean Platelet Volume 7.5 fL (7.4-10.4); Platelet Count 300 thou/uL (130-400); RBC Distribution Width 12.3 % (11.5-14.5); White Blood Cell (WBC) Count 7.4 thou/uL (4.8-10.8)
--- NOTE | 2019-06-07 13:59 | CT ---
Exam: CTA neck with contrast CTA head with contrast HISTORY: Stroke. Altered mental status and right-sided weakness. The symptoms have resolved. COMPARISON: None TECHNIQUE: 1. Multiple contiguous axial images were obtained and a CTA of the neck with contrast. 3-D sagittal a nd coronal MIP reformats were performed. 2. Multiple contiguous axial images were obtained and a CTA of the head with contrast. 3-D sagittal a nd coronal MIP reformats were performed. FINDINGS: CTA NECK: Aortic arch: Normal origin of the carotid arteries from the arch. No significant atherosclerotic dise ase of the subclavian arteries. Right common carotid artery: No significant atherosclerotic disease or narrowing Left common carotid artery: No significant atherosclerotic disease or narrowing Right internal carotid artery: Less than 10% stenosis per NASCET criteria Right external carotid artery: No significant atherosclerotic disease or narrowing Left internal carotid artery: Less than 10% stenosis per NASCET criteria Left external carotid artery: No significant atherosclerotic disease or narrowing Right cervical vertebral artery: No significant atherosclerotic disease or narrowing Left cervical vertebral artery: No significant atherosclerotic disease or narrowing No cervical adenopathy. The lung apices are unremarkable. Degenerative changes in the spine. CTA HEAD: Diffuse moderate nonfocal atherosclerotic disease is seen in the cavernous portion of both internal c arotid arteries. Right intracranial internal carotid artery: Patent without narrowing or occlusion Right anterior cerebral artery: Patent without narrowing or occlusion Right middle cerebral artery: Patent without narrowing or occlusion Left intracranial internal carotid artery: Patent without narrowing or occlusion Left anterior cerebral artery: Patent without narrowing or occlusion Left middle cerebral artery: Patent without narrowing or occlusion No aneurysmal dilatation is seen in the anterior circulation. Right vertebral artery: Patent without narrowing or occlusion Left vertebral artery: Patent without narrowing or occlusion Basilar artery: Patent without narrowing or occlusion The posterior cerebral arteries and cerebellar arteries are patent without narrowing or occlusion. No aneurysmal dilatation is seen in the posterior circulation. IMPRESSION: 1. No significant CTA abnormality of the neck 2. No significant CTA abnormality of the head
[2019-06-07 14:02] LABS: PTT 34.1 SEC (22.9-36.1); Prothrombin Time 13.5 SEC (12.0-14.7)
[2019-06-07 14:09] LABS: ALT (SGPT) 12 U/L (8-55); AST (SGOT) 19 U/L (5-34); Albumin 3.7 g/dL (3.4-4.8); Alkaline Phosphatase 127 U/L (40-110); Anion Gap 12 mmol/L (10-20); BUN (Urea Nitrogen) 11 mg/dL (8.4-25.7); Bilirubin, Total 0.7 mg/dL (0.2-1.2); Calc. Creatinine Clearance 0 mL/min (70-130); Calcium 9.5 mg/dL (7.8-10.44); Carbon Dioxide 27 mmol/L (23-31); Chloride 102 mmol/L (98-107); Estimated GFR-MDRD Greater than 90; Globulin 4.3 g/dL (2.4-3.5); Glucose 128 mg/dL (83-110); Potassium 4.3 mmol/L (3.5-5.1); Sodium 137 mmol/L (136-145)
[2019-06-07 14:28] LABS: CKMB 2.6 ng/mL (0-6.6)
--- NOTE | 2019-06-07 14:37 | RAD ---
EXAM: Single view of the chest HISTORY: Strokelike symptoms that have resolved COMPARISON: 09/15/2017 FINDINGS: Single view of the chest shows an enlarged but stable cardiomediastinal silhouette. There i s no evidence of consolidation, mass, or pleural effusion. Degenerative changes are seen in the spine. IMPRESSION: No evidence of acute cardiopulmonary disease
--- NOTE | 2019-06-07 16:08 | PDOC.FPRHP ---
- History of Present Illness Chief Complaint: right facial droop, slurred speech History of Present Illness: PCP: Erick David Bowman is an 83 year old M with a PMH of CVA with residual left sided deficits, DM2, A fib, CAD who was brought to ED from [facility] for acute onset of right facial weakness and slurred speech starting around 0600. Symptoms worsened around noon prompting [place] to call EMS. Patient denies any other symptoms, denies headaches, vision changes, chest pain, dyspnea, palpitations, n/v, dysuria, fever, chills. He was not given any medication in the ED or [facility]. In the ED, CT brain was negative. EKG showed A fib rate controlled. CTA head and neck was negative. - Allergies/Adverse Reactions Allergies Allergy/AdvReac Type Severity Reaction Status Date / Time No Known Allergies Allergy Verified 06/07/19 23:09 - Home Medications Medication Instructions Recorded Confirmed Type Amlodipine [Norvasc] 10 mg PO DAILY 06/09/14 09/28/17 History Pioglitazone HCl [Actos] 15 mg PO DAILY 06/09/14 09/28/17 History Spironolactone 25 mg PO DAILY 06/09/14 09/28/17 History carBAMazepine [Tegretol] 200 mg PO TID 06/09/14 09/28/17 History Bisacodyl [Dulcolax] 5 mg PO DAILY PRN 03/30/17 09/28/17 History Acetaminophen [Tylenol Regular 325 mg PO Q6HR PRN MDD 3000mg 07/29/17 09/28/17 History Strength] Ferrous Gluconate [Fergon] 324 mg PO DAILY 07/29/17 09/28/17 History Aspirin Chewable [Aspirin Chewable 81 mg PO DAILY #0 08/02/17 09/28/17 Rx Tablet] Amiodarone [Cordarone] 100 mg PO DAILY 08/19/17 09/28/17 History Multivitamin With Minerals 1 tablet PO DAILY 08/19/17 09/28/17 History [Multivitamins with Minerals] Acetaminophen With Codeine 1 tablet PO Q6HR PRN 09/15/17 09/28/17 History [Tylenol with Codeine #3] Diltiazem HCl [Cardizem SR] 120 mg PO DAILY 09/15/17 09/28/17 History Insulin Detemir 100 UNITS/ML 18 unit SQ BID 09/15/17 09/28/17 History [Levemir] traMADol HCl [Tramadol HCl] 50 mg PO Q6HR PRN 09/15/17 09/28/17 History Pantoprazole [Protonix] 40 mg PO BID tab 09/22/17 09/28/17 Rx Loratadine [Claritin] 10 mg PO DAILY PRN 09/28/17 09/28/17 History Furosemide [Lasix] 20 mg PO DAILY tab 10/05/17 Rx - History PMHx: CAD, HTN, DM2, A fib on Xarelto, hx of CVA with residual left sided deficits PSHx: Cholecystectomy, Right thoracentesis due to right pleural effusion, back surgery FHx: noncontributory Social: denies alcohol, drug, smoking - Review of Systems General: denies: fever/chills, weight/appetite/sleep changes Eyes: denies: eye pain, vision changes ENT: denies: nasal congestion, rhinorrhea Respiratory: denies: cough, congestion, shortness of breath Cardiovascular: denies: chest pain, palpitation, edema Gastrointestinal: denies: nausea, vomiting, diarrhea, abdominal pain Genitourinary: denies: incontinence, dysuria Skin: denies: rashes, lesions Musculoskeletal: denies: pain, tenderness Neurological: reports: weakness. denies: numbness Psychological: denies: anxiety, depression - Vital signs BP: 146/70 HR: 57 RR: 20 Tmax: 97.8 Pox: 98% on RA Wt: 89 kg - Physical Exam Constitutional: NAD, awake, alert and oriented HEENT: normocephalic and atraumatic, PERRLA, EOMI, grossly normal vision, grossly normal hearing, MMM -HEENT: right facial weakness below eyebrows Neck: supple, FROM Chest: no-tender to palpation, no lesions Heart: normal S1/S2, no murmurs/rubs/gallops -Heart: irregularly irregular rhythm Lungs: CTAB, no respiratory distress, good air movement, no rales/rhonchi Abdomen: soft, non-tender, bowel sounds present Musculoskeletal: normal structure, normal tone, ROM grossly normal -Neurological: right facial weakness, no numbness, CNII-XII intact, 5/5 strength in right UE and LE, 0/5 strength in left UE and LE expressive aphasia Skin: no rash/lesions, good turgor, capillary refill <2 seconds Heme/Lymphatic: no unusual bruising or bleeding, no purpura Psychiatric: normal mood and affect, good judgment and insight, intact recent and remote memory FMR H&P: Results - Labs Result Diagrams: 06/08/19 03:25 06/08/19 03:25 Lab results: WBC 7.4 thou/uL (4.8-10.8) 06/07/19 13:37 Hgb 13.2 g/dL (14.0-18.0) L 06/07/19 13:37 Hct 42.2 % (42.0-52.0) 06/07/19 13:37 MCV 96.0 fL (78.0-98.0) 06/07/19 13:37 Plt Count 300 thou/uL (130-400) 06/07/19 13:37 Neutrophils % 72.4 % (42.0-75.0) 06/07/19 13:37 Sodium 137 mmol/L (136-145) 06/07/19 13:37 Potassium 4.3 mmol/L (3.5-5.1) 06/07/19 13:37 Chloride 102 mmol/L (98-107) 06/07/19 13:37 Carbon Dioxide 27 mmol/L (23-31) 06/07/19 13:37 BUN 11 mg/dL (8.4-25.7) 06/07/19 13:37 Creatinine 0.83 mg/dL (0.7-1.3) 06/07/19 13:37 Glucose 128 mg/dL (83-110) H 06/07/19 13:37 Calcium 9.5 mg/dL (7.8-10.44) 06/07/19 13:37 Total Bilirubin 0.7 mg/dL (0.2-1.2) 06/07/19 13:37 AST 19 U/L (5-34) 06/07/19 13:37 ALT 12 U/L (8-55) 06/07/19 13:37 Alkaline Phosphatase 127 U/L (40-110) H 06/07/19 13:37 CK-MB (CK-2) 2.6 ng/mL (0-6.6) 06/07/19 13:37 Serum Total Protein 8.0 g/dL (5.8-8.1) 06/07/19 13:37 Albumin 3.7 g/dL (3.4-4.8) 06/07/19 13:37 - EKG Interpretation EKG: A fib rate controlled, no ST changes - Radiology Interpretation CT scan - head Status: report reviewed by me (no acute findings) FMR H&P: A/P - Problem List (1) CVA (cerebral vascular accident) Current Visit: Yes Status: Acute Code(s): I63.9 - CEREBRAL INFARCTION, UNSPECIFIED (2) Chronic atrial fibrillation Current Visit: No Status: Chronic Code(s): I48.2 - CHRONIC ATRIAL FIBRILLATION * DO NOT USE * Comment: Stable (3) Chronic combined systolic (congestive) and diastolic (congestive) heart failure Current Visit: No Status: Chronic Code(s): I50.42 - CHRONIC COMBINED SYSTOLIC AND DIASTOLIC HRT FAIL Comment: stable (4) Diabetes mellitus type 2 Current Visit: No Status: Chronic Code(s): E11.9 - TYPE 2 DIABETES MELLITUS WITHOUT COMPLICATIONS Comment: continue insulin sliding scale and accuchecks, Lantus 18u BID (5) Hemiparesis affecting left side as late effect of cerebrovascular accident ( CVA) Current Visit: No Status: Chronic Code(s): I69.354 - HEMIPLGA FOLLOWING CEREBRAL INFRC AFFECTING LEFT NONDOM SIDE Comment: PT for mobilization, high fall risk (6) Hypertension Current Visit: No Status: Chronic Code(s): I10 - ESSENTIAL (PRIMARY) HYPERTENSION Qualifiers: Hypertension type: essential hypertension Qualified Code(s): I10 - Essential (primary) hypertension Comment: stable - Plan 1) CVA: suspected - right facial weakness, slurred speech - outside window for TPA - Neg CT Brain and CTA head and neck - ordered Brain MRI and Echo - will optimize medical management - ASA and statin - Xarelto for A fib 2) A fib - EKG showed A fib rate controlled - continue home xarelto - monitor on stroke 3) DM2 - SSI - ACHS accuchecks 4) HTN - holding home medications - allow for permissive htn for 24-48 hours - prns antihypertensives 5) CAD - home meds Code Status: DNAR PCP: Erick Paredesendum - Attending - Attending Attestation Date/Time: 06/08/19 1144 I personally evaluated the patient and discussed the management with Dr. Dr. Mcdermott yesterday afternoon. I agree with the History, Examination, Assessment and Plan documented above with any addition or exceptions noted below.
[2019-06-07] MEDS ORDERED: Dextrose 50% Abboject 50 ML SYRINGE SLOW IVP PRN (21:01)
[2019-06-07] MEDS ORDERED: Dextrose 5% in Water 1,000 ML IV PRN (21:01)
[2019-06-07] MEDS ORDERED: HumaLOG 300 UNITS/3 ML VIAL SC PRN ×2 (21:01)
[2019-06-07] MEDS ORDERED: Ondansetron PF 4 MG/2 ML Vial IVP PRN (21:01)
[2019-06-07] MEDS ORDERED: Famotidine 20 MG TAB ONE (21:14)
[2019-06-07] MEDS: Famotidine 20 MG TAB PO SCH (21:34)
[2019-06-07] MEDS: Atorvastatin Calcium 40 MG TAB PO SCH (21:34)
[2019-06-08 01:17] VITALS: BMI 38.3
[2019-06-08 03:35] LABS: #Basophils 0.1 thou/uL (0.0-0.2); #Eosinphils 0.1 thou/uL (0.0-0.7); #Lymphocytes 1.2 thou/uL (1.20-3.40); #Monocytes 0.5 thou/uL (0.11-0.59); #Neutrophils 5.4 thou/uL (1.40-6.50); %Basophils 0.8 % (0.0-1.0); %Eosinophils 1.8 % (0.0-10.0); %Lymphocytes 16.2 % (21.0-51.0); %Monocytes 7.4 % (0.0-10.0); %Neutrophils 73.8 % (42.0-75.0); Hemoglobin 13.7 g/dL (14.0-18.0); Mean Corpuscular HGB CONC 32.6 g/dL (32.0-36.0); Mean Corpuscular Hemoglobin 31.2 pg (27.0-31.0); Mean Corpuscular Volume 95.8 fL (78.0-98.0); Mean Platelet Volume 7.9 fL (7.4-10.4); Platelet Count 287 thou/uL (130-400); RBC Distribution Width 12.4 % (11.5-14.5); White Blood Cell (WBC) Count 7.4 thou/uL (4.8-10.8)
[2019-06-08 04:00] LABS: Anion Gap 16 mmol/L (10-20); BUN (Urea Nitrogen) 9 mg/dL (8.4-25.7); Calc. Creatinine Clearance 113 mL/min (70-130); Carbon Dioxide 23 mmol/L (23-31); Cardiac Risk 3.1 (Less than 4.5); Chloride 101 mmol/L (98-107); Cholesterol 157 mg/dl (< 200 Desired); Estimated GFR-MDRD Greater than 90; Glucose 102 mg/dL (83-110); HDL Cholesterol 50 mg/dL (>60 Neg Risk); LDL Cholesterol, Calculated 94 mg/dL; Potassium 4.2 mmol/L (3.5-5.1); Sodium 136 mmol/L (136-145); Triglycerides 66 mg/dL (Less than 150)
--- NOTE | 2019-06-08 05:36 | PDOC.FM ---
- Subjective Subjective: Patient was resting comfortably in his hospital bed at the time of evaluation. He feels that he is currently at his baseline, and that the symptoms of aphasia and weakness that caused him to present initially have largely subsided. He denied any acute overnight events, specifically with regard to worsening aphasia , weakness, SOB or difficulty with bowel or bladder function. - Objective Vital Signs & Weight: Weight Weight 111.13 kg Result Diagrams: 06/08/19 03:25 06/08/19 20:56 Phys Exam - Physical Examination Constitutional: NAD HEENT: moist MMs, sclera anicteric, oral pharynx no lesions Neck: supple, full ROM Respiratory: no wheezing, no rales, no rhonchi, clear to auscultation bilateral Cardiovascular: RRR, no significant murmur, no rub Gastrointestinal: soft, non-tender, no distention, positive bowel sounds Musculoskeletal: no edema, pulses present Left-Sided Hemiparesis - at baseline. (-) Finger to Nose, (-) Dysdiadokines Psychiatric: normal affect, A&O x 3 Skin: no rash Dx/Plan - Plan Plan: Patient is an 83 y/o male with a PMH significant for Hx of CVAs who presents from a [facility] with "stroke-like symptoms". 1) TIA vs. CVA -TIA suspected - pronounced right facial weakness, slurred speech - resolved since presentation -Patient presented outside of TPA window -CT Brain: NAF -CTA head/Neck: NAF -MRI Brain: Pending -TTE: Pending -CXR: NAF -Q4H Neuro Checks -Will optimize medical management with ASA and high-intensity Statin 2) A-Fib -EKG in the ED demonstrated rate-controlled A-Fib -Patient takes Xarelto at home - will continue 3) DM2 -Blood Glucose: 102 on 06/08/2019 -Mild SSI -Bedtime SSI -ACHS Accuchecks -Hypoglycemia Protocol 4) HTN -146/70 in ED -Currently holding home medications -Will for Permissive HTN for 24-48H -Will order PRN Antihypertensives if needed 5) CAD -Will continue home medication regimen PCP: Erick Code Status: DNAR Diet: CC IVF: SL VTE PPx: SCDs and Home Xarelto Activity: Bedrest Dispo: Patient is currently stable in ER Hold. Will continue to monitor status closely with Q4H Neurocheck and await results of aforementioned imaging modalities. Continue to manage additional chronic medical problems. Expected LOS < 24H. Addendum - Attending - Attending Attestation Date/Time: 06/08/19 [id number] I personally evaluated the patient and discussed the management with Dr. Law. I agree with the History, Examination, Assessment and Plan documented above with any addition or exceptions noted below. Patient presented with stroke-like symptoms. He is feeling better. MRI shows acute infarct in left frontal lobe. Consulting neurology, stroke team. Echo is pending.
[2019-06-08] MEDS ORDERED: Bisacodyl 5 MG TAB PO PRN (05:41)
[2019-06-08] MEDS ORDERED: Loratadine 10 MG TAB PO PRN (05:41)
[2019-06-08] MEDS ORDERED: Acetaminophen 325 MG TAB PO PRN (05:41)
[2019-06-08] MEDS ORDERED: Aspirin Chewable 81 MG TAB ONE (08:15)
[2019-06-08] MEDS ORDERED: Enoxaparin Sodium 40 MG/0.4 ML SYRINGE ONE (08:15)
[2019-06-08] MEDS ORDERED: Famotidine 20 MG TAB ONE (08:15)
[2019-06-08] MEDS: Insulin Glargine 18 UNITS in Pre-Filled Syringe 1 EACH SC SCH ×2 (08:18→21:28)
[2019-06-08] MEDS: Enoxaparin Sodium 40 MG/0.4 ML SYRINGE SC SCH (08:28)
[2019-06-08] MEDS: Aspirin 81 mg Enteric Coated Tablet PO SCH (08:28)
[2019-06-08] MEDS: Famotidine 20 MG TAB PO SCH ×2 (08:28→21:28)
[2019-06-08] MEDS: Multivitamin W/ Minerals 1 TAB PO SCH (08:28)
[2019-06-08] MEDS: Pioglitazone HCl 15 MG TAB PO SCH (08:28)
[2019-06-08] MEDS: Ferrous Gluconate 324 MG TAB PO SCH (08:28)
[2019-06-08] MEDS ORDERED: INSULIN DETEMIR SQ SCH (09:00)
--- NOTE | 2019-06-08 10:09 | MRI ---
MRI BRAIN WITHOUT CONTRAST: INDICATION: Stroke with altered mental status. Left-sided weakness. Correlation made to CT of 06/07/2019. FINDINGS: Cortical volume loss. Moderately severe chronic ischemic white matter change. Encephalomalacia consis tent with old infarct involving the left occipital lobe. Review of diffusion-weighted images show a small focus of restricted diffusion in the left periventri cular white matter indicating acute lacunar infarct. This measures approximately 7-8 mm on the diffus ion-weighted sequence. It does extend to the subcortical region of the left frontal lobe. No other ev idence of restricted diffusion. No edema or mass effect. Intracranial internal carotid arteries, basilar artery, and proximal cerebral arteries show expected flow-voids. The dural venous sinuses are patent. Incidentally noted on sagittal imaging is increased fat signal with evidence of loculated fat density in the soft tissues inferior to the right occipital bone in the right neck region. This is not evalu ated on axial images and is incompletely assessed on the sagittal. Lipoma is a consideration. This ar ea measures over 6.0 cm craniocaudal and is incompletely evaluated. Correlate clinically. IMPRESSION: 1. Small focus of acute lacunar infarct in the left frontal lobe subcortical white matter. 2. Moderately severe chronic ischemic change and moderate cortical atrophy. 3. Old cortical infarct with encephalomalacia involving the left occipital lobe. POS: TPC
[2019-06-08 18:01] LABS: Glucose 171 mg/dL (83-110)
[2019-06-08 21:17] LABS: Glucose 111 mg/dL (83-110)
[2019-06-08] MEDS: Atorvastatin Calcium 40 MG TAB PO SCH (21:28)
--- NOTE | 2019-06-09 05:53 | PDOC.FM ---
- Subjective Subjective: Patient was resting comfortably in his hospital bed at the time of evaluation.. He denied any acute overnight events and expressed a strong desire to return to his assisted. - Objective Vital Signs & Weight: Vital Signs (12 hours) Temp Pulse Resp BP Pulse Ox 06/09/19 04:10 98.2 F 80 14 124/81 98 06/08/19 23:35 98.5 F 80 16 120/85 98 06/08/19 20:00 97 06/08/19 19:39 97.9 F 87 18 139/78 97 Weight Weight 111.13 kg I&O: 06/07/19 06/08/19 06/09/19 06:59 06:59 06:59 Intake Total 120 Balance 120 Result Diagrams: 06/08/19 03:25 06/08/19 20:56 Phys Exam - Physical Examination Constitutional: NAD HEENT: moist MMs, oral pharynx no lesions Neck: supple, full ROM Respiratory: no wheezing, no rales, no rhonchi, clear to auscultation bilateral Cardiovascular: RRR, no significant murmur, no rub Gastrointestinal: soft, non-tender, no distention, positive bowel sounds Musculoskeletal: no edema, pulses present Neurological: non-focal Left-sided hemiparesis, chronic. No evidence of dysarthria or aphasia Psychiatric: normal affect Skin: no rash Dx/Plan - Plan Plan: Patient is an 83 y/o male with a PMH significant for Hx of CVAs who presents from a [place] with "stroke-like symptoms". 1) CVA -Acute Lacunar Infarct confirmed of MRI Brain -Symptoms of aphasia and right-sided weakness resolved -Patient presented outside of TPA window -CT Brain: NAF -CTA Head/Neck: NAF -MRI Brain: Acute Lacunar Infarct, Left Frontal Lobe -TTE: EF (50-55%), Diastolic Dysfunction -CXR: NAF -Q4H Neuro Checks -Will optimize medical management with ASA and high-intensity Statin -Neuro Consult: Pending -Case Management Consult: Pending - Patient may benefit from Inpatient Rehab prior to DC to [place] 2) A-Fib -EKG in the ED demonstrated rate-controlled A-Fib -Patient takes Xarelto at home - will continue -Restarted home Amiodarone regimen 3) DM2 -Blood Glucose: 111 on 06/08/2019 -Mild SSI -Bedtime SSI -ACHS Accuchecks -Hypoglycemia Protocol 4) HTN -BP: 124/81 on 06/08 -Restarted home Amlodipine, Diltiazem regimen -Will order PRN Antihypertensives if needed 5) CAD -Will continue home medication regimen PCP: Erick Code Status: DNAR Diet: CC IVF: SL VTE PPx: SCDs and Xarelto Activity: Bedrest Dispo: Patient is currently admitted to the Stroke Floor for CVA. Will continue to monitor status closely with Q4H Neurocheck and await recs from Neuro and Case Management. Continue to manage additional chronic medical problems. Expected LOS < 24H. Addendum - Attending - Attending Attestation Date/Time: 06/09/19 1321 I personally evaluated the patient and discussed the management with Dr. Law. I agree with the History, Examination, Assessment and Plan documented above with any addition or exceptions noted below. The patient's MRI is consistent with acute cva. He is on a statin. BP is controlled. Awaiting neurology consult and then can d/c to [facility].
[2019-06-09] MEDS ORDERED: Amlodipine 5 MG TAB PO SCH (09:00)
[2019-06-09] MEDS ORDERED: Amiodarone 200 MG TAB PO SCH (09:00)
[2019-06-09] MEDS ORDERED: Spironolactone 25 MG TAB PO SCH (09:00)
[2019-06-09] MEDS ORDERED: Furosemide 20 MG TAB PO SCH (09:00)
[2019-06-09] MEDS ORDERED: FLU VACC TS2019-20(65YR UP)/PF 180 MCG/0.5 ML SYRINGE IM ONE (09:00)
[2019-06-09] MEDS ORDERED: Diltiazem HCl SR 60 mg Capsule PO SCH (09:00)
[2019-06-09] MEDS: Ferrous Gluconate 324 MG TAB PO SCH (10:51)
[2019-06-09] MEDS: Aspirin 81 mg Enteric Coated Tablet PO SCH (10:55)
[2019-06-09] MEDS: Enoxaparin Sodium 40 MG/0.4 ML SYRINGE SC SCH (10:55)
[2019-06-09] MEDS: Famotidine 20 MG TAB PO SCH (10:56)
[2019-06-09] MEDS: Multivitamin W/ Minerals 1 TAB PO SCH (10:57)
[2019-06-09] MEDS: Insulin Glargine 18 UNITS in Pre-Filled Syringe 1 EACH SC SCH (10:57)
[2019-06-09] MEDS: Pioglitazone HCl 15 MG TAB PO SCH (11:01)
[2019-06-09 16:33] VITALS: BP 149/72; TEMP 99.1
--- NOTE | 2019-06-09 21:26 | CON ---
DATE OF CONSULTATION: 06/09/2019 CHIEF COMPLAINT: New-onset right-sided weakness. HISTORY OF PRESENT ILLNESS: The patient reports at baseline, he has had left-sided weakness following a cerebrovascular accident 10 years ago. He is not on aspirin, but he has been on Xarelto in the past and it was stopped. Both aspirin and Xarelto were stopped. He suddenly developed right-sided weakness, which was new. Therefore, he was brought to the hospital. Currently, he reports there is definite improvement of the right-sided weakness. PREVIOUS MEDICAL HISTORY: Positive for history of stroke as stated 10 years ago, which caused significant left-sided weakness resulting in a [place] [facility] placement 7 years ago. He also has history of atrial fibrillation, diabetes, coronary artery disease. PAST SURGICAL HISTORY: Positive for cholecystectomy, right thoracentesis for right pleural effusion and back surgery. FAMILY HISTORY: His father of an [place]. Mother at 92. She had a stroke. Sister and brother also had MIs. The patient has 3 boys, 1 girl and they do not live here and do not visit much. SOCIAL HISTORY: He lives in a nursing facility for the past 7 years. LABORATORY WORKUP: White count 7.4, hemoglobin 13.7, hematocrit 42.1, platelet count 287. Chemistry; sodium 136, potassium 4.2, chloride 101, bicarb 23, BUN 9, creatinine 0.79, glucose 102, and lipase profile within normal limits and his reports MRI of the brain was reviewed and the patient does have a small focus of acute lacunar infarct in the left frontal lobe subcortical white matter and an old chronic ischemic change which is rather severe with moderate cortical atrophy as well and he has old cortical infarct with encephalomalacia in the left occipital lobe. CT angiogram has also been completed so far and CTA shows no significant vascular abnormalities or stenotic lesions. Echocardiogram showed EF of 50% to 55%, and diastolic function was indeterminate due to atrial fibrillation. He has moderately-dilated left atrium, mild mitral regurgitation, and sclerotic aortic valve which opens well. He has mild tricuspid regurgitation. PHYSICAL EXAMINATION: VITAL SIGNS: Temperature 99.1, pulse 75, blood pressure 149/72, O2 sats 93%. Respiratory rate 20. GENERAL APPEARANCE: Well-built, well-nourished, very pleasant man. CHEST: Clear vesicular breathing. CARDIOVASCULAR: S1, S2 heard. No murmurs. ABDOMEN: Soft. NEUROLOGICAL: Higher intellectual functions. Normal orientation to time, place, person and appropriate conversation. CRANIAL NERVES: Normal extraocular movements and pupils 2 mm, reactive to light bilaterally and normal sensation of face bilaterally. Tongue midline. No facial asymmetry noted. Normal hearing bilaterally. MOTOR: Bulk normal. Tone normal. Strength, 4+/5 in extensors on the right side. Flexors of 5/5 in the right upper extremity. Right lower extremity strength was 5/5. Left upper extremity had contractures and has flaccid weakness on the left side with 0/5. IMPRESSION: The patient with significant neurological deficit on the left side with contractures as well as residual dense hemiparesis on the left side. He now developed right-sided weakness, which has resolved, but examination shows mild weakness in the right side, right arm, and he has a focus of lacunar infarct in the left frontal subcortical area. This is likely due to hypertension and diabetes. The patient is not on Xarelto. At this time, he is also not on aspirin. RECOMMENDATIONS: Please consult Cardiology for need for Xarelto and we understand the patient's Xarelto was stopped due to GI bleeding. At this time, we can continue aspirin with statin and manage his hypertension, which would prevent future events and I will see him as needed. Job ID: [id number]
--- NOTE | 2019-06-10 06:26 | DIS ---
DATE OF ADMISSION: 06/07/2019 DATE OF DISCHARGE: 06/09/2019 RESIDENT: Jem Law MD ADMITTING ATTENDING: Didier Reid MD DISCHARGE ATTENDING: Christian Collado MD CONSULT: Corrina Shipman MD, Neurology. PROCEDURES: 1. CT brain without contrast, which showed no evidence of acute intracranial abnormality. 2. CTA head and neck, which revealed no significant CTA abnormality of the head or neck. 3. MRI brain without contrast, which revealed small focus of acute lacunar infarct in the left frontal lobe subcortical white matter, moderately severe chronic ischemic change with moderate cortical atrophy, old cortical infarct with encephalomalacia involving the left occipital lobe. PRIMARY DIAGNOSIS: Cerebrovascular accident. SECONDARY DIAGNOSES: 1. Atrial fibrillation. 2. Diabetes, type 2. 3. Hypertension. 4. Coronary artery disease. DISCHARGE MEDICATIONS: 1. Atorvastatin 40 mg p.o. daily. 2. Aspirin 81 mg p.o. daily. DISCONTINUED MEDICATIONS: 1. Amiodarone 100 mg p.o. daily. 2. Amlodipine 10 mg p.o. daily. 3. Aspirin 81 mg p.o. daily. 4. Atorvastatin 40 mg p.o. daily. 5. Diltiazem 120 mg p.o. daily. 6. Lovenox 40 mg subcutaneous daily. 7. Famotidine 20 mg p.o. b.i.d. 8. Ferrous gluconate 324 mg p.o. daily. 9. Furosemide 20 mg p.o. daily. 10. Insulin human lispro, mild sliding scale. 11. Insulin human lispro, bedtime sliding scale. 12. Multivitamin p.o. daily. 13. Protonix 40 mg p.o. b.i.d. 14. Pioglitazone 15 mg p.o. daily. 15. Spironolactone 25 mg p.o. daily. HISTORY OF PRESENT ILLNESS AND HOSPITAL COURSE: The patient is an 83-year-old male with past medical history significant for cerebrovascular accident with residual left-sided deficits, diabetes type 2, atrial fibrillation, coronary artery disease. He was brought to the emergency department from his alf at [facility]. Noted that there was acute onset right facial weakness and slurred speech starting around 6:00 a.m. prior to presentation. The symptoms worsened around noon, prompting the alf to call emergency services. The patient denied any other symptoms. Denied headache, vision changes, chest pain, shortness of breath, palpitations, nausea, vomiting, dysuria, fevers, or chills. He was not given any medications in the ER or prior to arrival in the ER, brain CT scan was negative. However, EKG showed atrial fibrillation that was rate controlled. CTA head and neck were negative. He was subsequently transferred to the stroke floor for observation and additional workup. MRI confirmed a cerebrovascular accident with the results being mentioned elsewhere in this document. He was subsequently evaluated by the Neurology Team, who noted that his medication regimen was optimized. During his stay, his initial deficits that prompted his presentation resolved and he stated that he was at his baseline. As such, he was subsequently prepped for discharge back to the alf. Prior to discharge, his vital signs were reported as temperature 99.1, pulse 75 beats per minute, respirations 20 breaths per minute, O2 saturations 93% on room air, and blood pressure 149/72. Laboratory analysis revealed a WBC count of 7.4, hemoglobin 13.7, hematocrit 42.1, and platelet count 287. Coagulation panel revealed a PT of 13.5, INR of 1.0, and APTT of 34.1. Chem profile revealed a sodium of 136, potassium 4.2, chloride 101, carbon dioxide 23, BUN 9, creatinine 0.79, and glucose 102. Fasting lipid panel revealed triglycerides 66, cholesterol 157, LDL cholesterol 94, and HDL cholesterol 50. TSH 1.5476. DISPOSITION: Stable. DISCHARGE INSTRUCTIONS: 1. Location: [facility]. 2. Diet: Heart-healthy, carbohydrate-conscious. 3. Activity: The patient likely will require physical assistance with transfer. He is wheelchair bound at baseline and as such, his activity should be limited in order to prevent falls. 4. Followup: The patient was encouraged to follow up with his primary care provider in 1 to 2 weeks or discuss most recent hospitalization as well as ongoing medical management. Job ID: [id number]
== END 2019-06-09 19:27 | DRG 65 ==
LOC: ERS 13:20 → ERHOLD 14:53 → 2SE 06-08 13:59
PROVIDERS: ADMIT Emergency Medicine; ATTEND Emergency Medicine
DX: I63.89 Other cerebral infarction (principal); I48.20 Chronic atrial fibrillation, unspecified; I50.42 Chronic combined systolic (congestive) and diastolic (congestive) heart failure; G81.91 Hemiplegia, unspecified affecting right dominant side; I69.354 Hemiplegia and hemiparesis following cerebral infarction affecting left non-dominant side; E11.9 Type 2 diabetes mellitus without complications; I25.10 Atherosclerotic heart disease of native coronary artery without angina pectoris; Z79.82 Long term (current) use of aspirin; Z90.49 Acquired absence of other specified parts of digestive tract; I11.0 Hypertensive heart disease with heart failure; Z66 Do not resuscitate; R29.810 Facial weakness; R47.81 Slurred speech; R47.01 Aphasia; K21.9 Gastro-esophageal reflux disease without esophagitis; I25.2 Old myocardial infarction; I69.398 Other sequelae of cerebral infarction; G93.89 Other specified disorders of brain; R40.2362 Coma scale, best motor response, obeys commands, at arrival to emergency department; R40.2252 Coma scale, best verbal response, oriented, at arrival to emergency department; R40.2142 Coma scale, eyes open, spontaneous, at arrival to emergency department
CPT/HCPCS: 36415; 36416; 70450; 70496; 70498; 70551; 71045; 80048; 80053; 80061; 82553; 84443; 84484; 85025; 85610; 85730; 93005; 93306; J1650; J1815; Q9967

== ENCOUNTER 2020-10-05 21:17 | Inpatient (IN) | payer MEDICARE, MEDICAID ==
[2020-10-05] MEDS ORDERED: Acetaminophen 325 MG TAB PO PRN (22:36)
[2020-10-05] MEDS ORDERED: Dextrose 5% in Water 1,000 ML IV PRN (22:36)
[2020-10-05] MEDS ORDERED: Dextrose 50% Abboject 50 ML SYRINGE SLOW IVP PRN (22:36)
[2020-10-05] MEDS ORDERED: HumaLOG 300 UNITS/3 ML VIAL SC PRN ×2 (22:36)
[2020-10-06 00:17] LABS: Magnesium 1.6 mg/dL (1.6-2.6); Phosphorus 3.3 mg/dL (2.3-4.7)
[2020-10-06 01:13] LABS: Troponin I 0.038 ng/mL (< 0.028)
[2020-10-06] MEDS ORDERED: Ondansetron PF 4 MG/2 ML Vial IVP PRN (01:15)
[2020-10-06] MEDS ORDERED: Ondansetron ODT 4 MG TAB SL PRN (01:15)
[2020-10-06 01:29] VITALS: BMI 36.3
[2020-10-06] MEDS: Lactated Ringer's 1,000 ML IV SCH ×4 (01:49→23:03)
[2020-10-06 02:27] LABS: Bacteria/HPF None Seen HPF (None Seen); Bilirubin Negative (Negative); Blood, Urine 3+ (Negative); Clarity Clear (Clear); Glucose, Urine (Dipstick) Normal (Negative); Ketone, Urine Negative (Negative); Leukocyte 75 Leu/uL (Negative); Nitrite Negative (Negative); Protein, Urine (Dipstick) Negative (Neg-Trace); RBC/HPF Greater than 50 HPF (0-3); Squamous Epithelial 0-3 HPF (0-3); Urine Culture Reflex Yes Yes; Urobilinogen Normal mg/dL (Less than 2); pH, Urine 6.5 (5.0-9.0)
[2020-10-06 02:39] LABS: SARS-CoV-2 NAA Rapid Test Not Detected (NotDetected)
[2020-10-06] MEDS ORDERED: Magnesium 2 GM/50 ML 2 GM in Premix Bag 1 BAG IVPB SCH (02:45)
[2020-10-06 05:11] LABS: Hemoglobin A1c 5.5 % (4.0-6.0)
[2020-10-06 05:18] LABS: Anion Gap 14 mmol/L (10-20); BUN (Urea Nitrogen) 9 mg/dL (8.4-25.7); Calc. Creatinine Clearance 108 mL/min (70-130); Calcium 9.6 mg/dL (7.8-10.44); Carbon Dioxide 27 mmol/L (23-31); Cardiac Risk 2.4 (Less than 4.5); Chloride 102 mmol/L (98-107); Cholesterol 105 mg/dl (< 200 Desired); Glucose 108 mg/dL (83-110); HDL Cholesterol 43 mg/dL (>60 Neg Risk); Iron 30 ug/dL (65-175); Iron Binding Capacity, Total 366 mcg/dL (261-462); LDL Cholesterol, Calculated 54 mg/dL; Potassium 4.4 mmol/L (3.5-5.1); Sodium 139 mmol/L (136-145); Triglycerides 40 mg/dL (Less than 150)
[2020-10-06 05:22] LABS: Troponin I 0.038 ng/mL (< 0.028)
[2020-10-06] MEDS: cefTRIAXone\\ROCEPHIN 1 GM in Sodium Chloride 0.9% 100 ML IVPB SCH (05:37)
[2020-10-06 05:42] LABS: Ferritin 13.31 ng/mL (22-322); Thyroid Stimulating Hormone 1.2117 uIU/mL (0.35-4.94)
[2020-10-06] MEDS: Enoxaparin Sodium 40 MG/0.4 ML SYRINGE SC SCH (09:22)
[2020-10-06] MEDS ORDERED: Baclofen 10 MG TAB PO PRN (10:37)
[2020-10-06] MEDS: Gabapentin 300 MG CAP PO SCH (21:10)
[2020-10-06] MEDS: Atorvastatin Calcium 40 MG TAB PO SCH (21:12)
[2020-10-07] MEDS: cefTRIAXone\\ROCEPHIN 1 GM in Sodium Chloride 0.9% 100 ML IVPB SCH (04:14)
[2020-10-07] MEDS: Lactated Ringer's 1,000 ML IV SCH (06:12)
[2020-10-07] MEDS: Polyethylene Glycol 3350 17 GM Packet PO SCH (08:56)
[2020-10-07] MEDS: Enoxaparin Sodium 40 MG/0.4 ML SYRINGE SC SCH (08:58)
[2020-10-07] MEDS: Aspirin 81 mg Enteric Coated Tablet PO SCH (08:59)
[2020-10-07] MEDS: Furosemide 40 MG TAB PO SCH (08:59)
[2020-10-07] MEDS: Spironolactone 25 MG TAB PO SCH (08:59)
[2020-10-07] MEDS: Ferrous Gluconate 324 MG TAB PO SCH (08:59)
[2020-10-07] MEDS: Hydrochlorothiazide 25 MG TAB PO SCH (09:00)
[2020-10-07] MEDS: Gabapentin 300 MG CAP PO SCH ×2 (09:00→20:17)
[2020-10-07] MEDS ORDERED: Diltiazem HCl SR 60 mg Capsule PO SCH (09:00)
[2020-10-07] MEDS ORDERED: Clopidogrel Bisulfate 75 MG TAB PO SCH (16:30)
[2020-10-07] MEDS: Atorvastatin Calcium 40 MG TAB PO SCH (20:17)
[2020-10-08] MEDS: cefTRIAXone\\ROCEPHIN 1 GM in Sodium Chloride 0.9% 100 ML IVPB SCH (04:11)
[2020-10-08] MEDS ORDERED: Clopidogrel Bisulfate 75 MG TAB PO SCH (09:00)
[2020-10-08] MEDS: Spironolactone 25 MG TAB PO SCH (09:22)
[2020-10-08] MEDS: Aspirin 81 mg Enteric Coated Tablet PO SCH (09:22)
[2020-10-08] MEDS: Ferrous Gluconate 324 MG TAB PO SCH (09:22)
[2020-10-08] MEDS: Furosemide 40 MG TAB PO SCH (09:23)
[2020-10-08] MEDS: Gabapentin 300 MG CAP PO SCH (09:23)
[2020-10-08] MEDS: Enoxaparin Sodium 40 MG/0.4 ML SYRINGE SC SCH (09:23)
[2020-10-08] MEDS: Polyethylene Glycol 3350 17 GM Packet PO SCH (09:24)
[2020-10-08] MEDS: Hydrochlorothiazide 25 MG TAB PO SCH (09:24)
[2020-10-08 11:38] VITALS: BP 150/71; TEMP 98.3
== END 2020-10-08 16:09 | DRG 65 ==
LOC: ERS 21:17 → 2NO 22:33 → OBSVTOIN 10-06 01:25 → 2SE 10-06 15:28
PROVIDERS: ADMIT Family Medicine; ATTEND Family Medicine
DX: I63.89 Other cerebral infarction (principal); I48.20 Chronic atrial fibrillation, unspecified; N39.0 Urinary tract infection, site not specified; Z66 Do not resuscitate; Z20.822 Contact with and (suspected) exposure to COVID-19; I69.954 Hemiplegia and hemiparesis following unspecified cerebrovascular disease affecting left non-dominant side; G93.49 Other encephalopathy; E11.9 Type 2 diabetes mellitus without complications; I10 Essential (primary) hypertension; K21.9 Gastro-esophageal reflux disease without esophagitis; E78.5 Hyperlipidemia, unspecified; J44.9 Chronic obstructive pulmonary disease, unspecified; F32.9 Major depressive disorder, single episode, unspecified; D50.9 Iron deficiency anemia, unspecified; B96.1 Klebsiella pneumoniae [K. pneumoniae] as the cause of diseases classified elsewhere; R29.810 Facial weakness; R47.81 Slurred speech; H53.8 Other visual disturbances; R29.718 NIHSS score 18; Z79.82 Long term (current) use of aspirin; Z79.899 Other long term (current) drug therapy; I25.2 Old myocardial infarction; Z90.49 Acquired absence of other specified parts of digestive tract
CPT/HCPCS: 36415; 36416; 70450; 80048; 80061; 81001; 82607; 82728; 82746; 83036; 83540; 83550; 83735; 84100; 84443; 84484; 87077; 87086; 87186; 93306; 95712; 95819; 95957; G0378; J0696; J1650; J3475; J3490; U0002; U0005